=== PATIENT | female | born 1995 | race Caucasian/White ===

== ENCOUNTER 2017-03-02 21:01 | Emergency (ER) | payer OTHER ==
[~2017-03-02] VITALS: Ht 157.5 cm; Wt 92.7 kg
[2017-03-02 21:04] VITALS: TEMP 37; Ht 157.5 cm; Wt 92.7 kg
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
[2017-03-02 22:07] LABS: BASO % 0.4 %; BASO ABS # 0.04 K/uL (0-0.2); COMPLETE YES; EOS % 0.9 %; HEMATOCRIT 45.1 % (37-47); IG% 0.3 %; LYMPH % 25.5 %; LYMPH ABS # 2.69 K/uL (1.2-3.4); MEAN CORPUSCULAR HEMOGLOBIN 31.6 pg (25-34); MEAN CORPUSCULAR HGB CONC 34.4 g/dl (32-36); MEAN PLATELET VOLUME 10.4 fL (7.4-10.4); MONO % 5.4 %; NEUT % 67.5 %; PLATELET COUNT 296 K/uL (130-400); WHITE BLOOD COUNT 10.56 K/uL (4.8-10.8)
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
[2017-03-02 22:34] LABS: PREG INTERNAL NEGATIVE QC NEG CLEAR BACKGROUND; PREG INTERNAL POSITIVE QC POS CONTROL LINE
[2017-03-02] MEDS ORDERED: MISCCAP80 PO (22:39)
[2017-03-02] MEDS ORDERED: ASCO500T3 PO (22:39)
[2017-03-02] MEDS ORDERED: BCPILLS PO (22:39)
[2017-03-02] MEDS ORDERED: OMEG10007 PO (22:39)
[2017-03-02 22:42] LABS: ALT/SGPT 19 U/L (12-78); BLOOD UREA NITROGEN 17 mg/dl (7-18); BUN/CREATININE RATIO 22.4 (10-20); CALCIUM 9.3 mg/dl (8.5-10.1); CARBON DIOXIDE 26 mmol/L (21-32); CHLORIDE 105 mmol/L (98-107); CREATININE 0.74 mg/dl (0.60-1.20); GLUCOSE 102 mg/dl (70-99); POTASSIUM 3.7 mmol/L (3.5-5.1); SODIUM 140 mmol/L (136-145)
[2017-03-02 22:47] LABS: ALKALINE PHOSPHATASE 58 U/L (45-117); AST/SGOT 16 U/L (15-37)
[2017-03-02 23:11] LABS: URINE APPEARANCE CLEAR (CLEAR); URINE BILIRUBIN NEG (NEG); URINE COLOR YELLOW; URINE EPITHELIAL CELL AUTO >30 /lpf (0-5); URINE NITRITE POS (NEG); URINE PH 6.5 (4.5-7.5); URINE SPECIFIC GRAVITY 1.021 (1.000-1.030); UROBILINOGEN NEG (NEG); ZZUR CULT IF INDIC CLEAN CATCH YES
[2017-03-02 23:17] LABS: MANUAL MICROSCOPIC REQUIRED? NO; REVIEW REQ? NO
[2017-03-02] MEDS ORDERED: CEPHALEXIN MONOHYDRATE 250 MG CAP PO ONE (23:30)
[2017-03-02 23:38] LABS: BENZODIAZEPINE, URINE NEG (NEG); COCAINE,URINE NEG (NEG); PHENCYCLIDINE, URINE NEG (NEG)
[2017-03-03 00:54] VITALS: BP 137/83; PULSE 88; O2SAT 97
[2017-03-03] MEDS ORDERED: CEPH-571 PO (00:56)
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
== END 2017-03-03 01:20 | disposition home or self-care (01) ==
LOC: EDBD 21:01 → C.EDA 21:03
DX: M54.6 Pain in thoracic spine (principal); R56.9 Unspecified convulsions; F50.2 Bulimia nervosa; Z72.820 Sleep deprivation; N30.01 Acute cystitis with hematuria; V48.9XXA Unspecified car occupant injured in noncollision transport accident in traffic accident, initial encounter; Y93.89 Activity, other specified; Y99.8 Other external cause status; Y92.411 Interstate highway as the place of occurrence of the external cause

== ENCOUNTER 2017-07-27 09:51 | Emergency (ER) | payer OTHER ==
[~2017-07-27] VITALS: Ht 154.9 cm; Wt 100.6 kg
[~2017-07-27 09:51] MED LIST: ASCO500T3 PO; BCPILLS PO; MISCCAP80 PO; OMEG10007 PO
[2017-07-27 09:56] VITALS: TEMP 36.9; Ht 154.9 cm; Wt 100.6 kg
[2017-07-27] MEDS ORDERED: ONDANSETRON 4MG OD TAB PO ONE (10:30)
[2017-07-27 10:47] VITALS: O2SAT 94
--- NOTE | 2017-07-27 11:08 | DIAGNOSTIC IMAGING REPORT ---
CHEST ONE VIEW PORTABLE CLINICAL HISTORY: EVALUATE WEAKNESS COMPARISON STUDY: Chest radiograph March 02, 2017. FINDINGS: Lung volumes are at the lower limits of normal. There is no pneumothorax or pleural effusion. There is no consolidation or evidence for pulmonary edema. Cardiomediastinal silhouette is normal. IMPRESSION: No acute cardiopulmonary findings. Electronically signed by: Bharat Santizo M.D. 07/27/2017 11:06 AM Dictated Date/Time: 07/27/2017 11:06 AM
[2017-07-27] MEDS ORDERED: LORAZEPAM 0.5 MG TAB PO STA (12:03)
[2017-07-27 13:14] LABS: BASO % 0.2 %; BASO ABS # 0.02 K/uL (0-0.2); EOS % 0.8 %; EOS ABS # 0.09 K/uL (0-0.5); HEMATOCRIT 42.8 % (37-47); HEMOGLOBIN 14.5 g/dL (12.0-16.0); IG# 0.05 K/uL (0.00-0.02); LYMPH % 16.6 %; LYMPH ABS # 1.86 K/uL (1.2-3.4); MEAN CELL VOLUME 90.7 fL (80-100); MEAN CORPUSCULAR HEMOGLOBIN 30.7 pg (25-34); MEAN CORPUSCULAR HGB CONC 33.9 g/dl (32-36); MEAN PLATELET VOLUME 10.1 fL (7.4-10.4); MONO % 4.9 %; MONO ABS # 0.55 K/uL (0.11-0.59); NEUT % 77.1 %; NEUT ABS # 8.62 K/uL (1.4-6.5); PLATELET COUNT 286 K/uL (130-400); RED CELL DISTRIBUTION WIDTH CV 13.1 % (11.5-14.5); RED CELL DISTRIBUTION WIDTH SD 43.5 fL (36.4-46.3); WHITE BLOOD COUNT 11.19 K/uL (4.8-10.8)
[2017-07-27 13:36] LABS: CALCIUM 8.7 mg/dl (8.5-10.1); CREATININE 0.73 mg/dl (0.60-1.20); POTASSIUM 4.1 mmol/L (3.5-5.1)
[2017-07-27 13:47] LABS: PHOSPHORUS 2.2 mg/dl (2.5-4.9)
[2017-07-27] MEDS ORDERED: POT PHOSPHATE MONOBASIC W/ SOD TAB PO STA (13:54)
[2017-07-27 14:21] VITALS: BP 134/90; PULSE 90; O2SAT 97
--- NOTE | 2017-07-27 14:43 | EMERGENCY ROOM VISIT NOTE ---
History Report prepared by Eugene: Nito Hebert Under the Supervision of: Dr. Caleb Ramos M.D. First contact with patient: 10:10 Chief Complaint: DIZZY Stated Complaint: DIZZY, NAUSEA, CONSTIPATION,HEARTBURN AND HEADACHE History of Present Illness The patient is a 21 year old white female with a past medical history of seizures, s/p tonsillectomy who presents to the ED with a cc of constant lightheadedness beginning three days ago. Symptoms worsen with positional changes. Symptoms began suddenly. Positive nausea (x1.5 weeks) and heart palpitations. She recently took a test which was negative. Symptoms improved with sitting down. Her LNMP was about three weeks ago - she states it seemed abnormally light. Negative urinary symptoms, abdominal pain, or vomiting. No recent antibiotic use. Recent travel to [place]. No drug or alcohol use. Patient states that she has been stressed with school recently, but this is not abnormal for her. Source of History: patient Onset: Three days ago Quality: other (lightheadedness) Timing: constant Modifying Factors (Worsening): other (positional changes) Modifying Factors (Relieving): other (sitting down) Associated Symptoms: + nausea (x1.5 weeks), No vomiting, No abdominal pain, No urinary symptoms Note: Positive: heart palpitations. Review of Systems See HPI for pertinent positives and negatives. A total of ten systems were reviewed and were otherwise negative. Past Medical & Surgical Medical Problems: (1) Seizures Family History No pertinent family history stated. 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: [employer] student Current/Historical Medications Scheduled Ascorbic Acid (Vitamin C), 500 MG PO DAILY Fish Oil ([place]-3), 1 CAP PO DAILY Allergies Coded Allergies: Fluoxetine (Verified Allergy, Intermediate, Bad thoughts, 07/27/17) Physical Exam Vital Signs Date Time Temp Pulse Resp B/P (MAP) Pulse Ox O2 Delivery O2 Flow Rate FiO2 07/27/17 14:21 90 24 134/90 97 07/27/17 13:51 82 18 97 07/27/17 13:21 83 16 96 07/27/17 12:51 79 18 98 07/27/17 12:21 81 16 98 07/27/17 12:08 77 23 123/73 98 Room Air 07/27/17 12:08 123/73 07/27/17 11:51 72 16 99 07/27/17 11:21 74 20 98 07/27/17 10:50 74 07/27/17 10:47 94 Room Air 07/27/17 09:56 36.9 88 20 140/86 96 Room Air Physical Exam GENERAL: Awake, alert, well-appearing, NAD HENT: Normocephalic, atraumatic. Patient has braces. EYES: Normal conjunctiva. Sclera non-icteric. NECK: Supple. No nuchal rigidity. FROM. RESPIRATORY: CTAB, no rhonchi, wheezing, crackles CARDIAC: RRR, no MRG ABDOMEN: Soft, NTND, BS+ MSK: No chest wall TTP, no LE edema NEURO: GCS 15, CN 2-12 intact, moves all 4s on command SKIN: No rash or jaundice noted. Medical Decision & Procedures ER Provider Diagnostic Interpretation: Radiology results as stated below per my review and radiologist interpretation: CHEST ONE VIEW PORTABLE FINDINGS: Lung volumes are at the lower limits of normal. There is no pneumothorax or pleural effusion. There is no consolidation or evidence for pulmonary edema. Cardiomediastinal silhouette is normal. IMPRESSION: No acute cardiopulmonary findings. Electronically signed by: Bharat Santizo M.D. 07/27/2017 11:06 AM Laboratory Results 07/27/17 11:28 Red Blood Count 4.72, Mean Corpuscular Volume 90.7, Mean Corpuscular Hemoglobin 30.7, Mean Corpuscular Hemoglobin Concent 33.9, Mean Platelet Volume 10.1, Neutrophils (%) (Auto) 77.1, Lymphocytes (%) (Auto) 16.6, Monocytes (%) (Auto) 4.9, Eosinophils (%) (Auto) 0.8, Basophils (%) (Auto) 0.2, Neutrophils # (Auto) 8.62, Lymphocytes # (Auto) 1.86, Monocytes # (Auto) 0.55, Eosinophils # (Auto) 0.09, Basophils # (Auto) 0.02 07/27/17 11:28 Test 07/27/17 10:45 07/27/17 11:28 Urine Color DK YELLOW Urine Appearance CLOUDY (CLEAR) Urine pH 5.5 (4.5-7.5) Urine Specific [place] 1.027 (1.000-1.030) Urine Protein NEG (NEG) Urine Glucose (UA) NEG (NEG) Urine Ketones NEG (NEG) Urine Occult Blood NEG (NEG) Urine Nitrite NEG (NEG) Urine Bilirubin NEG (NEG) Urine Urobilinogen NEG (NEG) Urine Leukocyte Esterase NEG (NEG) Urine WBC (Auto) 1-5 /hpf (0-5) Urine RBC (Auto) 0-4 /hpf (0-4) Urine Hyaline Casts (Auto) 0 /lpf (0-5) Urine Epithelial Cells (Auto) >30 /lpf (0-5) Urine Bacteria (Auto) NEG (NEG) White Blood Count 11.19 K/uL (4.8-10.8) Red Blood Count 4.72 M/uL (4.2-5.4) Hemoglobin 14.5 g/dL (12.0-16.0) Hematocrit 42.8 % (37-47) Mean Corpuscular Volume 90.7 fL (80-100) Mean Corpuscular Hemoglobin 30.7 pg (25-34) Mean Corpuscular Hemoglobin Concent 33.9 g/dl (32-36) Platelet Count 286 K/uL (130-400) Mean Platelet Volume 10.1 fL (7.4-10.4) Neutrophils (%) (Auto) 77.1 % Lymphocytes (%) (Auto) 16.6 % Monocytes (%) (Auto) 4.9 % Eosinophils (%) (Auto) 0.8 % Basophils (%) (Auto) 0.2 % Neutrophils # (Auto) 8.62 K/uL (1.4-6.5) Lymphocytes # (Auto) 1.86 K/uL (1.2-3.4) Monocytes # (Auto) 0.55 K/uL (0.11-0.59) Eosinophils # (Auto) 0.09 K/uL (0-0.5) Basophils # (Auto) 0.02 K/uL (0-0.2) RDW Standard Deviation 43.5 fL (36.4-46.3) RDW Coefficient of Variation 13.1 % (11.5-14.5) Immature Granulocyte % (Auto) 0.4 % Immature Granulocyte # (Auto) 0.05 K/uL (0.00-0.02) Anion Gap 7.0 mmol/L (3-11) Est Creatinine Clear Calc Drug Dose 133.7 ml/min Estimated GFR () 137.4 Estimated GFR (Non- 118.6 BUN/Creatinine Ratio 18.3 (10-20) Calcium Level 8.7 mg/dl (8.5-10.1) Phosphorus Level 2.2 mg/dl (2.5-4.9) Magnesium Level 2.1 mg/dl (1.8-2.4) Thyroid Stimulating Hormone (TSH) 2.120 uIu/ml (0.300-4.500) Laboratory results reviewed by me Medications Administered Medications (Trade) Dose Ordered Sig/Soraya Route Start Time Stop Time Status Last Admin Dose Admin Ondansetron HCl (Zofran Odt) 4 mg ONE ONCE PO 07/27/17 10:30 07/27/17 10:31 DC 07/27/17 10:51 4 MG Lorazepam (Ativan Tab) 0.5 mg NOW STAT PO 07/27/17 12:03 07/27/17 12:04 DC 07/27/17 12:08 0.5 MG Potassium/ Phosphorus/Sodium (Phospha 250 Neutral 155-852-130 Mg) 2 tab ONE STAT PO 07/27/17 13:54 07/27/17 13:55 DC 07/27/17 14:22 2 TAB ECG Per My Interpretation Indication: other (lightheadedness) Rate (beats per minute): 79 Rhythm: normal sinus Findings: T-wave inversion (lead 3. ), other (Normal intervals. Normal axis. No other STS changes or TWI. ) ED Course 1022: The patient was evaluated in room B2. A complete history and physical exam was performed. 1102: Patient had an episode of vasovagal syncope while having her IV placed. 1142: Patient is asking to have her IV removed. 1405: I reevaluated the patient. Discussed results and discharge instructions: she verbalized understanding and agreement. The patient is ready for discharge. Medical Decision The patient is a 21 year old white female with a past medical history of seizures, s/p tonsillectomy who presents to the ED with a cc of constant lightheadedness beginning three days ago. Differential diagnosis: Etiologies such as benign positional vertigo, dehydration, hypovolemia, anemia, tumor, infection, hypoglycemia, electrolyte abnormalities, cardiac sources, intracerebral event, toxicologic, neurologic, as well as others were entertained. Nursing notes reviewed. Ancillary studies and prior records reviewed. Patient was seen and evaluated the bedside. Patient has complained of some lightheadedness primarily with positional changes. There is a constant nature but the patient denies any vertiginous symptoms. Patient denies any recent trauma the patient has a nonfocal neurologic exam. Patient did have blood work, EKG, urinalysis, chest x-ray. Patient's chest x- ray is clear. EKG does not show overt arrhythmia or ischemic changes. Patient' s blood work is fairly unremarkable. Patient white blood cell count of 11,000. H&H within normal limits. Kidney function within normal limits. Urinalysis does not show infection or blood. Patient was informed of these findings and was told that make sure that she liberally hydrates. Patient was told that this may have been some decrease vagal tone or at the time of her worsening dizziness may be related to some elevated heart rate which may be better seen with something like a Holter monitor. Patient was told that she does have persistent symptoms she should follow-up with her PCP in order to obtain an outpatient specialist referral. I do not believe that she requires further treatment in the hospital. I believe she is safe for discharge. Patient was given strict follow-up, discharge, and return precautions. All questions were answered. Patient was deemed suitable for outpatient follow-up at this time. Patient agreed with the plan of care and was safely discharged home. Medication Reconcilliation Current Medication List: was personally reviewed by me Blood Pressure Screening Patient's blood pressure: Normal blood pressure Blood pressure disposition: Did not require urgent referral Impression Primary Impression: Dizziness Scribe Attestation The scribe's documentation has been prepared under my direction and personally reviewed by me in its entirety. I confirm that the note above accurately reflects all work, treatment, procedures, and medical decision making performed by me. Departure Information Dispostion Home / Self-Care Referrals No Doctor, Assigned (PCP) Patient Instructions Dizziness Fainting Poss Causes, My [facility] Additional Instructions Please return to the emergency department if you have worsening or recurrent symptoms not amenable to at-home treatment. Please call for a follow-up appointment with her primary care physician. Please take your medications as prescribed. If you have other concerns and/or complaints please feel free to also call your primary care physician's office or return the ED for further evaluation, management, and treatment. You were found to have an elevated blood pressure today (>120 sytolic or >90 diastolic). Per medicare guidelines, you need to follow up with this blood pressure screening with your Primary Care Physician (PCP). For a new PCP call [phone]. You received narcotic or benzodiazepene medication while in the emergency room today. This is an addictive medication that may cause drowziness as well as constipation. Do not drive, operate heavy machinery, or drink alcohol under the influence of this medication. You may take 600 mg Ibuprofen every 6 hours as needed for pain with food for no more than 2 consecutive days. You may take tylenol 1000 mg every 6 hours as needed for pain. You may take motrin and tylenol separately or at the same time. Take your medications as prescribed. Continue to hydrate liberally. Please be careful as he change positions. Consider avoiding alcohol and caffeine. Consider follow-up with your PCP for further testing, evaluation, and possible specialist referral if you have persistent symptoms. You have been examined and treated today on an emergency basis only. This is not a substitute for, or an effort to provide, complete comprehensive medical care. It is impossible to recognize and treat all injuries or illnesses in a single emergency department visit. It is therefore important that you follow up closely with [facility], your PCP, and/or your specialist(s). Call as soon as possible for an appointment. Thank you for your time and consideration. I look forward to speaking with you again soon. Please don't hesitate to call us if you have any questions.
== END 2017-07-27 14:45 | disposition home or self-care (01) ==
LOC: C.EDB 09:54
DX: R42 Dizziness and giddiness (principal); R56.9 Unspecified convulsions; Z88.8 Allergy status to other drugs, medicaments and biological substances

== ENCOUNTER 2018-08-29 07:38 | Inpatient (IN) ==
[2018-08-29] MEDS ORDERED: OXYTOCIN 30 UNITS/500 ML BAG IV PRN ×3 (08:40→18:30)
[2018-08-29 09:07] LABS: Hematocrit (blood only) 35.6 % (37-47); Hemoglobin 12.7 g/dL (12.0-16.0); Mean Corpuscular Volume 86.6 fL (80-100); Mean Platelet Volume 10.5 fL (7.4-10.4); Platelet Count 187 K/uL (130-400); RDW Coefficient of Variation 14.1 % (11.5-14.5); RDW Standard Deviation 44.3 fL (36.4-46.3); Red Blood Count 4.11 M/uL (4.2-5.4); White Blood Count 6.44 K/uL (4.8-10.8)
[2018-08-29 09:18] LABS: Mean Corpuscular Hgb Conc 35.7 g/dL (32-36)
[2018-08-29 09:34] LABS: Albumin Level 2.3 gm/dl (3.4-5.0); BUN Creatinine Ratio 12.9 (10-20); Calcium 8.8 mg/dl (8.5-10.1); Creatinine Clr Calc Pharmacy 165.5 ml/min; Est GFR (African American) 146.1
[2018-08-29 09:37] LABS: Albumin Globulin Ratio 0.6 (0.9-2); Bilirubin,Total 0.7 mg/dl (0.2-1); Total Protein 6.3 gm/dl (6.4-8.2)
[2018-08-29] MEDS: LACTATED RINGER'S 1,000 ML IV PRN ×2 (09:38→12:19)
--- NOTE | 2018-08-29 09:47 | Anesthesiology Consultation ---
Date of Service August 29, 2018 Assessment & Plan (1) Encounter for pre-operative examination: Chart Review Chart Review: Patient NOT seen in Pre Admission Testing and Acceptable Risk for Labor Epidural Consults Requested none ASA ASA3 Proposed Anesthesia Anesthesia Type: Labor Epidural Risk / Benefits Reviewed With: PT / POA / Parent / Guardian, Accepts Plan and Informed Consent Obtained History Height/Weight Height: 5 ft 2 in Weight: 117.934 kg Allergies Allergy/AdvReac Type Severity Reaction Status Date / Time fluoxetine Allergy Intermediate Bad Verified 08/29/18 08:18 thoughts diphenhydramine Allergy Mild jittery Verified 08/29/18 08:18 [From Unisom (diphenhydramine)] Medications Home Medications Medication Instructions Recorded Confirmed Last Taken PNV cmb#95-ferrous fumarate-FA 1 tab PO DAILY 04/22/18 08/29/18 08/28/18 08:00 [] famotidine [Pepcid AC] 10 mg PO DAILY PRN 08/16/18 08/29/18 08/22/18 08:00 Active Medications Generic Name Dose Route Start Last Admin Trade Name Freq PRN Reason Stop Dose Admin Lactated Ringer's 1,000 mls @ 125 mls/hr 08/29/18 08:40 08/29/18 10:10 Lr IV 08/31/18 08:39 125 mls/hr .Q8H PRN Infusion L&D Protocol Protocol Oxytocin 30 units in 500 mls @ 5 mls/hr 08/29/18 08:40 08/29/18 10:50 Pitocin IV 08/31/18 08:39 0.3 units/hr .Q24H PRN 5 mls/hr Labor Induction/Augmentation Titration Protocol 0.3 UNITS/HR NPO Date Last Intake of Fluids: 08/29/18 Time Last Intake of Fluids: 11:12 Date Last Intake of Solids: 08/28/18 Time Last Intake of Solids: 23:00 Past Medical History Medical History Seizures (Resolved) Only with syncope Gastroesophageal reflux disease Gestational [-induced] hypertension without significant proteinuria, third trimester Gestational diabetes Obesity Pre-eclampsia Exercise / Class Metabolic Activity II 4-5 Yardwork/Stairs/Walk up hill (Postive for sob, denies cp) Past Surgical History Surgical History History of tonsillectomy [place] teeth extracted Past Anesthesia History No Hx of Anesthesia Complications and No Family Hx of Anesthesia Complications History of PONV No Hx of PONV and Hx of Motion Sickness (With ) Social History Smoking Status: Never smoker Do You Dip or Chew Tobacco: No Hx Alcohol Use: No Hx Substance Use: No Review of Systems Patient denies history of abnormal bleeding or bleeding disorder. Patient denies active use of anticoagulants other than low dose aspirin. Patient denies numbness, tingling or weakness in lower extremities. Patient denies active symptoms of GERD. Physical Exam Vital Signs Last Vital Signs Temp 37.5 C 08/29/18 07:59 Pulse 120 H 08/29/18 10:47 Resp 20 08/29/18 07:59 BP 124/79 08/29/18 10:47 Constitutional + obese ENMT Mouth: no TMJ abnormality and oral opening not small Thyromental Distance: > or= 3.5 Finger Breadths Mallampati Class: I Mouth / Teeth: 1. Upper and lower braces Neck normal visual inspection, + short neck and + thick neck; neck extension not limited Respiratory normal respiratory effort Auscultation: lungs clear to auscultation bilaterally Cardiovascular Rate/Rhythm: regular rate and regular rhythm Heart Sounds: no murmur Neurologic moves all extremities Motor/Sensory: no sensory deficit Psychiatric Orientation: alert and oriented x 3 Testing Electrocardiogram Date: 08/16/18 Findings: + ST @ (103) Laboratory Results 08/29/18 08:57 08/29/18 08:57
[2018-08-29 10:03] LABS: Potassium 3.6 mmol/L (3.5-5.1)
--- NOTE | 2018-08-29 10:22 | History & Physical Report ---
Date of Service August 29, 2018 Assessment & Plan (1) Elective induction of labor planned: Pt is a 30 year old at 37+3 for induction of labor 2/2 preclampsia without severe features. - FHT reassuring Cat 1 tracing - 3.5/100/0 - LR @ 125 - F/U CMP and U/A - Pitocin 30 units in 500 mls @ 1 mls/hr -> up by 2 - Monitor FHT/toco - Monitor BP given dx of preeclampsia without severe features -labetalol for severe HTN - Routine labor care - Anticipate Vaginal , Expectant management History of Present Illness Primary Care Provider: Светлана Page MD Pt is a 23 year old with lmp of 12/06/2017 and EDC of 09/16/2018 confirmed by 1st trimester ultrasound on 01/31/2018 at 7+3 who presents at 37+3 for induction of labor 2/2 to preeclampsia without severe features. course was significant for GDM in the third trimester, preeclampsia, hx anxiety and depression, UTI. Currently pt reports malaise for the past few days, however has been afebrile. Last cervical exam on 08/26/18 was 3/90/-2, cervical exam today on admission 3.5/100/0 with bulging membranes. Currently does not report feeling contractions, just some occasional abdominal tightening toco shows > 7 minutes apart and not very forceful. She currently denies nausea, vomiting, RUQ pain, swelling, headache, blurred vision, vaginal bleeding, or decreased movement. Over the weekend she reports having flu like syx, malaise, muscle aches, pains, headache, and slight fever. Denied congestion, sob, v/d/c. Recently completed a course of abx for a uti. Pt resting comfortably in bed no acute complaints, answered all questions, no acute concerns. labs First Visit 7+3 Weight Gain: 18.6 lbs A+ antibody neg Last HGB: 12.4 08/23/2018 DM screen: 05/27/18->GDM Rubella Immune HIV neg Pap neg 01/31/18 EGA:37+3 BP Range 106/60-130/88 U/A: Lactobacillus GBS negative RPR Negative HBsAG Negative GC/ Chlamydia negative Allergies Allergy/AdvReac Type Severity Reaction Status Date / Time fluoxetine Allergy Intermediate Bad Verified 08/29/18 08:18 thoughts diphenhydramine Allergy Mild jittery Verified 08/29/18 08:18 [From Unisom (diphenhydramine)] Home Medications Home Medications Medication Instructions Recorded Confirmed Type PNV cmb#95-ferrous fumarate-FA 1 tab PO DAILY 04/22/18 08/29/18 History [] famotidine [Pepcid AC] 10 mg PO DAILY PRN 08/16/18 08/29/18 History Patient History Medical History Seizures (Resolved) Social History Preferred Language: Amharic Communication Ability: Effective Clin Tech Required: No Beliefs That Will Affect Care: None marital status: Single Current Living Situation: Alone current occupational status: student Feels Safe at Home: Yes Safety Concerns: Feels Safe At This Time Smoking Status: Never smoker Hx Alcohol Use: No Hx Substance Use: No OB History OBHX: hCG+ on 01/12/2018, stopped taking anti-depressant when she found out she was , PNV and iron throughout , elevated BP -> preeclampsia w/o severe features [employer]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: menearche @ 13, hx long cycles 35 days, normal amount and duration, neg pap, no hx PID or STDS, hx ovarian cysts and endometriosis PMHX: HTN, Anxiety/depression, Lives with 3 roomates, one has a cat FHX:GDM, F-HTN, M- Kidney stones, MGM DM, HLD, depression, anxiety, PGF-Liver ca, Allergies: NKDA Physical Exam Constitutional: WD/WN, vitals as above Eyes: normal visual becker by confrontation Neck: normal visual inspection and trachea midline Respiratory: normal respiratory effort, lungs clear to auscultation Cardiovascular: RRR, no murmur, no edema Heart Sounds: normal S1 and normal S2 Extremities: normal capillary refill; no calf tenderness Gastrointestinal (Abdomen): Gravid belly Skin: no rashes, warm and dry Psychiatric: A+Ox3, euthymic affect Results & Data Vital Signs (Past 12 Hours) Vital Signs Temp Pulse Resp BP 08/29/18 09:18 122 H 133/94 08/29/18 07:59 37.5 C 20 08/29/18 07:52 125 H 131/91 Laboratory Results 08/29/18 08/29/18 Range/Units 08:57 08:57 WBC 6.44 (4.8-10.8) K/uL RBC 4.11 L (4.2-5.4) M/uL Hgb 12.7 (12.0-16.0) g/dL Hct 35.6 L (37-47) % MCV 86.6 (80-100) fL MCH 30.9 (25-34) pg MCHC 35.7 (32-36) g/dL RDW Std Deviation 44.3 (36.4-46.3) fL RDW Coeff of Rishi 14.1 (11.5-14.5) % Plt Count 187 (130-400) K/uL MPV 10.5 H (7.4-10.4) fL Sodium 136 (136-145) mmol/L Potassium 3.6 (3.5-5.1) mmol/L Chloride 104 (98-107) mmol/L Carbon Dioxide 22 (21-32) mmol/L Anion Gap 10.0 (3-11) BUN 8 (7-18) mg/dl Creatinine 0.65 (0.6-1.2) mg/dl Est Cr Clr Drug Dosing 165.5 ml/min Est GFR ( Amer) 146.1 Est GFR (Non-Af Amer) 126.0 BUN/Creatinine Ratio 12.9 (10-20) Glucose 95 (70-99) mg/dl Calcium 8.8 (8.5-10.1) mg/dl Total Bilirubin 0.7 (0.2-1) mg/dl AST 59 H (15-37) U/L ALT 99 H (12-78) U/L Alkaline Phosphatase 179 H (45-117) U/L Total Protein 6.3 L (6.4-8.2) gm/dl Albumin 2.3 L (3.4-5.0) gm/dl Globulin 4.0 (2.5-4.0) gm/dl Albumin/Globulin Ratio 0.6 L (0.9-2) Medications Administered Current Inpatient Medications Lactated Ringer's (Lr) 1,000 mls @ 125 mls/hr IV .Q8H PRN; Protocol PRN Reason: L&D Protocol Stop: 08/31/18 08:39 Last Infusion: 08/29/18 10:10 Dose: 125 mls/hr Documented by: Oxytocin (Pitocin) 30 units in 500 mls @ 1 mls/hr IV .Q24H PRN; Protocol PRN Reason: Labor Induction/Augmentation Stop: 08/31/18 08:39 Last Titration: 08/29/18 10:10 Dose: 0.18 units/hr, 3 mls/hr Documented by: Oxytocin (Pitocin) 30 units in 500 mls @ 333.333 mls/hr IV .Q1H30M PRN; Protocol PRN Reason: Bleeding Control Stop: 09/28/18 08:39 Code Status & VTE Plan Code Status Full VTE Prophylaxis Plan VTE Prophylaxis will be ordered: Yes Monitoring External Monitor FHR 155 Variability Moderate Accel present No decels CTX every 7 min or so Cat 1 Resident Activity Tracking Resident Involvement: Resident Care Provided Care Provided: Adult Hospital Medicine
--- NOTE | 2018-08-29 11:55 | Obstetrical Progress Note ---
Date of Service August 29, 2018 Subjective Comfortable, does not desire epidural at this time. FHT Cat 1, [place] Q 2 min AROM performed, clear fluid. SVE 4/100/0. Results & Data Vital Signs (Past 12 Hours) Vital Signs Temp Pulse Resp BP 08/29/18 11:37 116 H 133/79 08/29/18 11:15 98.6 F 08/29/18 10:47 120 H 124/79 08/29/18 09:38 122 H 128/79 08/29/18 09:18 122 H 133/94 08/29/18 07:59 99.5 F 08/29/18 07:52 125 H 131/91
[2018-08-29 11:58] LABS: Appearance Urine Cloudy (Clear); Bacteria Urine Automated 1+ (Negative); Bilirubin Urine Negative (Negative); Blood Urine 1+ (Negative); Color Urine Dark Yellow; Epithelial Cell Urine Auto >30 /lpf (0-5); Glucose Urine UA Negative (Negative); Ketones Urine Negative (Negative); Leukocyte Esterase Urine 1+ (Negative); Nitrite Urine Negative (Negative); Protein Urine Negative (Negative); RBC Urine Automated 0-4 /hpf (0-4); Specific Gravity Urine 1.013 (1.000-1.030); Urobilinogen Urine Negative (Negative)
[2018-08-29] MEDS ORDERED: BUPIVACAINE 0.25% 30 ML VIAL ONE (11:58)
[2018-08-29] MEDS ORDERED: ePHEDrine sulfate 50 MG/ML AMP ONE (11:58)
[2018-08-29] MEDS ORDERED: fentaNYL citrate 100 MCG/2 ML VIAL ONE (11:59)
[2018-08-29] MEDS ORDERED: fentaNYL 2MCG/ML ROPIV 1.25MG/ML 100 ML BAG EPI ONE (12:00)
[2018-08-29] MEDS ORDERED: ONDANSETRON INJ 2 MG/ML 2 ML VIAL IV PRN (12:59)
[2018-08-29] MEDS ORDERED: NALOXONE HCL 1 MG in SODIUM CHLORIDE 0.9% 1000ML 1,000 ML IV PRN (12:59)
[2018-08-29] MEDS ORDERED: NALBUPHINE HCL INJ 10 MG/ML AMP IV PRN (12:59)
[2018-08-29] MEDS ORDERED: ePHEDrine sulfate 50 MG/ML AMP IV PRN (12:59)
[2018-08-29] MEDS ORDERED: LACTATED RINGER'S 1,000 ML IV PRN (12:59)
[2018-08-29] MEDS ORDERED: fentaNYL 2MCG/ML ROPIV 1.25MG/ML 100 ML BAG EPI PRN (12:59)
[2018-08-29] MEDS ORDERED: NALOXONE HCL 0.4 MG/1 ML VIAL/CARP IV PRN (12:59)
--- NOTE | 2018-08-29 13:51 | Labor Progress Brief Note ---
Date of Service August 29, 2018 Subjective Comfortable with epidural. Assessment & Plan (1) Mild preeclampsia: Patient being induced for preeclampsia without severe features at 37+ weeks. Patient's labs reviewed from this morning. LFT elevated a bit more than on previous Wednesday, however still do not reach to double normal values. Platelets and Cr normal. Patient continues to be without headache, vision changes, RUQ pain or other severe features. BP normal at this time. Moving towards delivery. Trimester: third trimester Qualified Code(s): O14.03 - Mild to moderate pre-eclampsia, third trimester Present on Admission?: Yes Physical Exam Physical Exam: FHT 130 mod mary ann +acc -dec [place] Q1-4 irregular, pit @ 9 Cvx 5/100/0 Molding noted. Fluid clear. Results & Data Vital Signs (Past 12 Hours) Vital Signs Temp Pulse Resp BP Pulse Ox 08/29/18 13:45 105 H 94 08/29/18 13:40 98 H 96 08/29/18 13:35 101 H 117/75 94 08/29/18 13:30 97 H 18 95 08/29/18 13:27 105 H 92 08/29/18 13:25 103 H 95 08/29/18 13:20 97 H 18 96 08/29/18 13:18 100 H 110/66 08/29/18 13:15 96 H 99/58 L 97 08/29/18 13:12 96 H 18 103/65 08/29/18 13:10 99 H 96 08/29/18 13:07 99 H 106/66 08/29/18 13:05 100 H 96 08/29/18 13:02 103 H 18 99/59 L 08/29/18 13:00 96 H 96 08/29/18 12:57 18 08/29/18 12:56 96 H 111/63 08/29/18 12:55 98 H 96 08/29/18 12:54 99 H 108/58 L 08/29/18 12:52 98 H 18 112/60 08/29/18 12:50 100 H 110/60 96 08/29/18 12:48 107 H 106/63 08/29/18 12:46 100 H 106/64 08/29/18 12:45 104 H 96 08/29/18 12:44 98 H 104/63 08/29/18 12:40 98 H 97 08/29/18 12:35 113 H 96 08/29/18 12:30 112 H 96 08/29/18 12:25 117 H 95 08/29/18 12:24 116 H 134/94 08/29/18 11:53 37.2 C 08/29/18 11:37 116 H 133/79 08/29/18 11:15 37.0 C 08/29/18 10:47 120 H 124/79 08/29/18 09:38 122 H 128/79 08/29/18 09:18 122 H 133/94 08/29/18 07:59 37.5 C 08/29/18 07:52 125 H 131/91
--- NOTE | 2018-08-29 15:14 | Labor Progress Brief Note ---
Date of Service August 29, 2018 Subjective Comfortable with epidural. Assessment & Plan (1) Mild preeclampsia: Continue induction of labor. Trimester: third trimester Qualified Code(s): O14.03 - Mild to moderate pre-eclampsia, third trimester Present on Admission?: Yes Physical Exam Physical Exam: 7/100/0 IUPC and FSE placed at RN request due to difficulty tracing pattern. Pit @ 11. FHT Cat 1 and MVU do not appear adequate at first, with ctx Q4min upon IUPC placement. Results & Data Vital Signs (Past 12 Hours) Vital Signs Temp Pulse Resp BP Pulse Ox 08/29/18 15:10 105 H 94 08/29/18 15:05 111 H 129/75 93 08/29/18 15:00 113 H 92 08/29/18 14:59 20 08/29/18 14:55 108 H 93 08/29/18 14:50 108 H 94 08/29/18 14:49 109 H 111/75 08/29/18 14:45 108 H 93 08/29/18 14:40 106 H 94 08/29/18 14:35 112 H 93 08/29/18 14:34 107 H 107/82 08/29/18 14:30 109 H 94 08/29/18 14:25 111 H 94 08/29/18 14:21 37.2 C 20 08/29/18 14:20 112 H 125/76 93 08/29/18 14:18 124 H 88 L 08/29/18 14:15 103 H 94 08/29/18 14:10 97 H 93 08/29/18 14:06 113 H 89 L 08/29/18 14:05 108 H 90 08/29/18 14:03 96 H 124/77 08/29/18 14:00 100 H 20 92 08/29/18 13:55 98 H 91 08/29/18 13:50 100 H 124/77 94 08/29/18 13:45 105 H 94 08/29/18 13:40 98 H 96 08/29/18 13:35 101 H 117/75 94 08/29/18 13:30 97 H 18 95 08/29/18 13:27 105 H 92 08/29/18 13:25 103 H 95 05 13:20 97 H 18 96 08/29/18 13:18 100 H 110/66 08/29/18 13:15 96 H 99/58 L 97 08/29/18 13:12 96 H 18 103/65 08/29/18 13:10 99 H 96 08/29/18 13:07 99 H 106/66 08/29/18 13:05 100 H 96 08/29/18 13:02 103 H 18 99/59 L 08/29/18 13:00 96 H 96 08/29/18 12:57 18 08/29/18 12:56 96 H 111/63 08/29/18 12:55 98 H 96 08/29/18 12:54 99 H 108/58 L 08/29/18 12:52 98 H 18 112/60 08/29/18 12:50 100 H 110/60 96 08/29/18 12:48 107 H 106/63 08/29/18 12:46 100 H 106/64 08/29/18 12:45 104 H 96 08/29/18 12:44 98 H 104/63 08/29/18 12:40 98 H 97 08/29/18 12:35 113 H 96 08/29/18 12:30 112 H 96 08/29/18 12:25 117 H 95 08/29/18 12:24 116 H 134/94 08/29/18 11:53 37.2 C 08/29/18 11:37 116 H 133/79 08/29/18 11:15 37.0 C 08/29/18 10:47 120 H 124/79 08/29/18 09:38 122 H 128/79 08/29/18 09:18 122 H 133/94 08/29/18 07:59 37.5 C 08/29/18 07:52 125 H 131/91
--- NOTE | 2018-08-29 17:56 | Labor Progress Brief Note ---
Date of Service August 29, 2018 Subjective Lots of pressure with urge to push. Assessment & Plan (1) Mild preeclampsia: Ready to begin second stage of labor. Trimester: third trimester Qualified Code(s): O14.03 - Mild to moderate pre-eclampsia, third trimester Present on Admission?: Yes Physical Exam Physical Exam: 10/100/caput at +2, molding, skull more like +1. Test push effective. FHT Cat 1 [place] Q2m Results & Data Vital Signs (Past 12 Hours) Vital Signs Temp Pulse Resp BP Pulse Ox 08/29/18 17:50 121 H 97 08/29/18 17:49 112 H 128/85 08/29/18 17:45 118 H 95 08/29/18 17:40 115 H 93 08/29/18 17:35 111 H 125/83 95 08/29/18 17:30 110 H 95 08/29/18 17:25 111 H 96 08/29/18 17:20 107 H 95 08/29/18 17:19 112 H 131/70 08/29/18 17:15 108 H 95 08/29/18 17:10 117 H 94 08/29/18 17:05 108 H 93 08/29/18 17:04 106 H 130/89 08/29/18 17:00 106 H 93 08/29/18 16:55 106 H 131/77 93 08/29/18 16:50 104 H 137/85 94 08/29/18 16:45 101 H 93 08/29/18 16:40 105 H 93 08/29/18 16:35 102 H 94 08/29/18 16:34 103 H 125/78 08/29/18 16:30 106 H 93 08/29/18 16:29 37.0 C 20 08/29/18 16:25 105 H 93 08/29/18 16:20 103 H 95 08/29/18 16:18 104 H 122/77 08/29/18 16:15 108 H 96 08/29/18 16:10 105 H 95 08/29/18 16:05 103 H 125/77 93 08/29/18 16:01 18 08/29/18 16:00 104 H 93 08/29/18 15:55 103 H 92 08/29/18 15:50 101 H 92 08/29/18 15:49 104 H 130/72 05//19 15:45 101 H 90 08/29/18 15:40 109 H 90 08/29/18 15:35 108 H 146/70 H 92 08/29/18 15:31 37.2 C 18 08/29/18 15:30 104 H 93 08/29/18 15:25 104 H 93 08/29/18 15:20 102 H 117/58 L 92 08/29/18 15:15 102 H 94 08/29/18 15:10 105 H 94 08/29/18 15:05 111 H 129/75 93 08/29/18 15:01 18 08/29/18 15:00 113 H 92 08/29/18 14:59 20 08/29/18 14:55 108 H 93 08/29/18 14:50 108 H 94 08/29/18 14:49 109 H 111/75 08/29/18 14:45 108 H 93 08/29/18 14:40 106 H 94 08/29/18 14:35 112 H 93 08/29/18 14:34 107 H 107/82 08/29/18 14:30 109 H 94 08/29/18 14:25 111 H 94 08/29/18 14:21 37.2 C 20 08/29/18 14:20 112 H 125/76 93 08/29/18 14:18 124 H 88 L 08/29/18 14:15 103 H 94 08/29/18 14:10 97 H 93 08/29/18 14:06 113 H 89 L 08/29/18 14:05 108 H 90 08/29/18 14:03 96 H 124/77 08/29/18 14:00 100 H 20 92 08/29/18 13:55 98 H 91 08/29/18 13:50 100 H 124/77 94 08/29/18 13:45 105 H 94 08/29/18 13:40 98 H 96 05 13:35 101 H 117/75 94 08/29/18 13:30 97 H 18 95 08/29/18 13:27 105 H 92 08/29/18 13:25 103 H 95 08/29/18 13:20 97 H 18 96 08/29/18 13:18 100 H 110/66 08/29/18 13:15 96 H 99/58 L 97 08/29/18 13:12 96 H 18 103/65 08/29/18 13:10 99 H 96 08/29/18 13:07 99 H 106/66 08/29/18 13:05 100 H 96 08/29/18 13:02 103 H 18 99/59 L 08/29/18 13:00 96 H 96 08/29/18 12:57 18 08/29/18 12:56 96 H 111/63 08/29/18 12:55 98 H 96 08/29/18 12:54 99 H 108/58 L 08/29/18 12:52 98 H 18 112/60 08/29/18 12:50 100 H 110/60 96 08/29/18 12:48 107 H 106/63 08/29/18 12:46 100 H 106/64 08/29/18 12:45 104 H 96 08/29/18 12:44 98 H 104/63 08/29/18 12:40 98 H 97 08/29/18 12:35 113 H 96 08/29/18 12:30 112 H 96 08/29/18 12:25 117 H 95 08/29/18 12:24 116 H 134/94 08/29/18 11:53 37.2 C 08/29/18 11:37 116 H 133/79 08/29/18 11:15 37.0 C 08/29/18 10:47 120 H 124/79 08/29/18 09:38 122 H 128/79 08/29/18 09:18 122 H 133/94 08/29/18 07:59 37.5 C 08/29/18 07:52 125 H 131/91
[2018-08-29] MEDS ORDERED: HYDROCORTISONE ACETATE 25 MG SUPP PR PRN (18:30)
[2018-08-29] MEDS ORDERED: SUPERCREAM 0.870% 15 GM JAR EXT PRN (18:30)
[2018-08-29] MEDS ORDERED: DIPHTHERIA/TETANUS/PERTUSSIS 0.5 ML SYR/VIAL IM ONE (18:30)
[2018-08-29] MEDS ORDERED: OXYCODONE/ACETAMINOPHEN 5mg/325mg TAB PO PRN (18:30)
[2018-08-29] MEDS ORDERED: BENZOCAINE 20% AER SPR 82.5 GM CAN EXT PRN (18:30)
--- NOTE | 2018-08-29 18:35 | Procedure Note ---
Vaginal Delivery Summary Date of Service August 29, 2018 Supervising Physician Co-Signing Physician Notes Patient pushed to deliver head of in OA position. Restituted with left shoulder anterior, and noted to have flexed R arm at the elbow, with right fist alongside R cheek. Nuchal cord reduced on perineum and loop hanging outside canal noted to have excessive allie jelly. Shoulder dystocia recognized and managed with Adarsh position, Suprapubic pressure from posterior aspect of L shoulder, and maternal pushing efforts, which successfully resulted in delivery of anterior shoulder, followed by posterior fist/shoulder together, and the remainder of the infant then followed. Total dystocia time over 60 seconds. Infant placed on abdomen and cord clamped and quickly cut by MD, moved to warmer for resuscitation efforts. No lacerations of vagina, perineum or cervix required repair. Placenta delivered S/I/3VC, circumvallate insertion of membranes and excessive allie jelly, and will be sent for exam. Fundus firm and lochia minimal, EBL 350cc for this delivery.
[2018-08-29] MEDS: ACETAMINOPHEN 325 MG TAB PO PRN (20:25)
--- NOTE | 2018-08-29 20:37 | Anesthesia Procedure Note ---
Date of Service August 29, 2018 Anesthesia Post Epidural Note Vital Signs Vital Signs: Temp Pulse Resp BP Pulse Ox 37.1 C 118 H 18 147/92 H 100 08/29/18 19:10 08/29/18 20:34 08/29/18 19:25 08/29/18 20:34 08/29/18 18:15 Pain Intensity Abdomen: Pain Intensity: 6 Notes Mental Status: alert / awake / arousable and participated in evaluation Nausea / Vomiting: adequately controlled Pain: adequately controlled Airway Patency, RR, SpO2: stable & adequate BP & HR: stable & adequate Hydration State: stable & adequate Neuraxial Anesthesia: was administered and sensory block resolved Anesthetic Complications: no major complications apparent and Pt Satisfied with anesthetic care Epidural: Removed without complications and With tip intact Notes: Epidural site clean, dry and intact without signs of bruising, edema or erythema.
[2018-08-30] MEDS: IBUPROFEN 600 MG TAB PO PRN ×3 (02:29→18:00)
[2018-08-30] MEDS: ACETAMINOPHEN 325 MG TAB PO PRN (04:29)
[2018-08-30 07:12] LABS: Hematocrit (blood only) 31.3 % (37-47); Hemoglobin 11.1 g/dL (12.0-16.0); Mean Corpuscular Hgb Conc 35.5 g/dL (32-36); Mean Corpuscular Volume 86.9 fL (80-100); Mean Platelet Volume 10.1 fL (7.4-10.4); Platelet Count 161 K/uL (130-400); RDW Coefficient of Variation 14.1 % (11.5-14.5); RDW Standard Deviation 44.4 fL (36.4-46.3); White Blood Count 6.46 K/uL (4.8-10.8)
--- NOTE | 2018-08-30 07:20 | Obstetrical Progress Note ---
Date of Service August 30, 2018 Assessment & Plan (1) Status post vaginal delivery: Patient is a 23 year old PPD 1 s/p complicated by mild preclampsia -Vital signs WNL bp 103/68 T37.1, -Hemoglobin is 11.1 down from 12.7 on admission. no si/sx of anemia. -Pt is doing clinically well -Continue to encourage ambulation as tolerated, Monitor and control pain with motrin prn, Continue diet as tolerated. -Plan to bottle feed -Routine care Supervising Physician Co-Signing Physician Notes I have reviewed the resident's note and examined the patient myself, and agree with the note above. Subjective Patient laying in bed this morning s/p lab draws with dad sleeping on bed across the room. Pt reports doing well overnight, she endorse some left sided intermitt ent cramping. Patient is tolerating her diet, ambulating, passing gas and voiding, had a small bm. Reports moderate lochia. Denies H/A, chest pain, palpitations and uti syx. Answered all questions, no concerns at present, pain is well controlled Physical Exam Physical Exam: Constitutional: WD/WN, vitals as above no acute distress Eyes: normal visual becker by confrontation Neck: normal visual inspection Respiratory: normal respiratory effort, lungs clear to auscultation Cardiovascular: RRR, no murmur, no edema Heart Sounds: normal S1 and normal S2 Extremities: no calf tenderness Gastrointestinal (Abdomen): Uterus firm and below the umbilicus Results & Data Vital Signs (Past 12 Hours) Vital Signs Temp Pulse Pulse Resp BP BP 08/30/18 03:45 37.1 C 76 18 103/68 08/29/18 22:32 37.7 C H 18 08/29/18 20:34 118 H 147/92 H 08/29/18 20:19 110 H 144/98 H 08/29/18 20:09 112 H 139/90 08/29/18 19:49 109 H 141/70 H 08/29/18 19:34 109 H 135/78 08/29/18 19:25 18 08/29/18 19:19 101 H 140/65 Resident Activity Tracking Resident Involvement: Resident Care Provided Care Provided: [facility]
[2018-08-30 07:44] LABS: Albumin Globulin Ratio 0.5 (0.9-2); Albumin Level 1.9 gm/dl (3.4-5.0); BUN Creatinine Ratio 13.1 (10-20); Bilirubin,Total 0.3 mg/dl (0.2-1); Calcium 8.6 mg/dl (8.5-10.1); Creatinine Clr Calc Pharmacy 151.5 ml/min; Est GFR (African American) 140.1; Est GFR (Non-African American) 120.9; Globulin 3.6 gm/dl (2.5-4.0); Potassium 3.6 mmol/L (3.5-5.1); Total Protein 5.5 gm/dl (6.4-8.2)
[2018-08-30] MEDS: DOCUSATE SODIUM 100 MG CAP PO SCH ×2 (08:19→20:18)
[2018-08-30] MEDS ORDERED: PRENATAL VITAMIN 1 TAB PO SCH (09:00)
[2018-08-31] MEDS: ACETAMINOPHEN 325 MG TAB PO PRN ×2 (00:31→06:43)
[2018-08-31 07:06] LABS: Mean Platelet Volume 10.2 fL (7.4-10.4); Platelet Count 194 K/uL (130-400)
[2018-08-31 07:13] LABS: Hematocrit (blood only) 32.2 % (37-47); Hemoglobin 11.3 g/dL (12.0-16.0); Mean Corpuscular Hgb Conc 35.1 g/dL (32-36); Mean Corpuscular Volume 87.3 fL (80-100); RDW Coefficient of Variation 14.5 % (11.5-14.5); RDW Standard Deviation 45.6 fL (36.4-46.3); Red Blood Count 3.69 M/uL (4.2-5.4); White Blood Count 5.79 K/uL (4.8-10.8)
--- NOTE | 2018-08-31 07:51 | Obstetrical Progress Note ---
Date of Service August 31, 2018 Assessment & Plan (1) Status post vaginal delivery: - no localizing source of infection - WBC this AM 5.7 - O2 Sat 97% - PE unremarkable - OK for D/C from an OB standpoint - will arrange outpatient f/u with [facility] prior to d/c - OB D/C instructions given, f/u in 6 weeks Subjective Patient complaining of shaking chills in difficulty taking a deep breath. Patient states that the symptoms have been going on for at least a week prior to delivery. She is also having a trouble with a headache. The headache was felt to be secondary to the PIH prior to delivery. The headache is not improved. The patient was evaluated in the emergency room last week and was felt to have a urinary tract infection. She was treated with antibiotics which she just completed. Patient states that she just does not feel well. She states that her temperature at home was as high as 100.5 prior to delivery. Temperature returns to normal with Tylenol. Patient is seen by [facility] as her primary care. Physical Exam Vital Signs (Past 24 Hours) Last Vital Signs Temp 100.4 F H 08/31/18 06:43 Pulse 120 H 08/31/18 06:43 Resp 22 08/31/18 06:43 BP 120/85 08/31/18 06:43 Pulse Ox 97 08/31/18 06:43 Constitutional WD/WN, vitals as above Respiratory Auscultation: lungs clear to auscultation bilaterally Cardiovascular RRR, no murmur, no edema Rate/Rhythm: + tachycardic Extremities: no calf tenderness
[2018-08-31 07:55] LABS: ALC (manual) 2.25 K/uL (1.2-3.4); Eosinophils % (manual) 1.7 %; Lymphocytes # (manual) 1.25 K/uL (1.2-3.4); Lymphocytes % (manual) 21.6 %; Monocytes % (manual) 1.7 %; Myelocytes # (manual) 0.05 K/uL (0-0); Myelocytes % (manual) 0.9 %; Neutrophils % (manual) 56.9 %; RBC Morphology Unremarkable
[2018-08-31] MEDS: DOCUSATE SODIUM 100 MG CAP PO SCH (08:53)
--- NOTE | 2018-08-31 11:50 | Obstetrical Progress Note ---
Date of Service August 31, 2018 Subjective PPD#2. Has been feeling "under the weather" for the past 2 weeks. States she has off/on fever/chills, generalized malaise. No nausea/vomiting. Occasional shortness of breath, chest pain. Was treated by ER for UTI with abx, urine culture grew out lactobacillus. Vitals show tachycardia, elevated temp this AM 100.4. Since, has had normal temp. BP wnl. Normal lung sounds, no fundal tenderness. No LE edema/calf tenderness. Preeclampsia labs trending normal, WBC normal. I do not believe patient's symptoms to be related to recent delivery since this has been ongoing for the past few weeks, however in light of tachycardia and complaint of chest pain, will obtain CT to rule out PE. She has outpatient appointment for followup with family medicine office tomorrow. She would like to go home, and is agreeable to plan. Results & Data Vital Signs (Past 12 Hours) Vital Signs Temp Pulse Resp BP Pulse Ox 08/31/18 07:35 97.7 F 124 H 20 126/82 97 08/31/18 06:43 100.4 F H 120 H 22 120/85 97 08/31/18 05:55 99.7 F H 111 H 20 116/70 100 08/31/18 00:20 98.8 F 105 H 18 125/88
[2018-08-31] MEDS ORDERED: OPTIRAY 320 125ml IV PRN (12:52)
--- NOTE | 2018-08-31 13:03 | CT Scan Report ---
CT angio chest PE protocol CT DOSE: 773.33 mGy.cm HISTORY: Chest pain. Dyspnea. PE TECHNIQUE: Multiaxial CT images of the chest were performed following the intravenous administration of contrast to evaluate the pulmonary arteries. Maximal intensity projection images were also obtaine d. A dose lowering technique was utilized adhering to the principles of ALARA. COMPARISON STUDY: None. FINDINGS: There is a normal caliber thoracic aorta with no evidence for dissection. There is no evide nce for pulmonary embolus. No pleural effusions. No pneumothorax. The liver and spleen are unremarkab le. No mediastinal or hilar lymphadenopathy. The central airways are patent. The lungs are clear. Sof t tissue density in the substernal/anterior mediastinal region felt to represent residual thymic tiss ue. IMPRESSION: No evidence for pulmonary embolus. The lungs are clear. The above report was generated using voice recognition software. It may contain grammatical, syntax or spelling errors. Electronically signed by: Gregory Lane M.D. 08/31/2018 1:02 PM
--- NOTE | 2018-08-31 13:26 | Obstetrical Progress Note ---
Date of Service August 31, [address] chest negative, lungs clear, no PE. Patient is pumping in room. I discussed results with her. She states she feels ok now, but just isn't sure why she is waking up in the middle of the night feeling like she can't really catch her breath. I discussed with her that I think it is reasonable, given negative imaging and 2+ weeks duration of symptoms, for her to followup tomorrow at her scheduled outpatient family practice visit. She is agreeable. Results & Data Vital Signs (Past 12 Hours) Vital Signs Temp Pulse Resp BP Pulse Ox 08/31/18 07:35 97.7 F 124 H 20 126/82 97 08/31/18 06:43 100.4 F H 120 H 22 120/85 97 08/31/18 05:55 99.7 F H 111 H 20 116/70 100
== END 2018-08-31 14:45 | disposition home or self-care (01) | DRG 807 ==
LOC: 4S1 07:38 → 4S2 22:40

== ENCOUNTER 2020-02-24 17:24 | Observation (INO) ==
[2020-02-24] MEDS ORDERED: SODIUM CHLORIDE 0.9% 1000ML 2,000 ML IV ONE (18:49)
[2020-02-24] MEDS ORDERED: ONDANSETRON INJ 2 MG/ML 2 ML VIAL IV STA (18:49)
--- NOTE | 2020-02-24 18:53 | Emergency Department Note ---
Impression & Plan Hyperglycemia due to diabetes mellitus, Morbid obesity with BMI of 50.0-59.9, adult, Abscess of skin, Cellulitis ED Provider Note NAME: GE EGAN AGE: 24 SEX: F : 1995 ARRIVES VIA: Walk-In INFORMANT: Patient ED PROVIDER(S): Luis Hernandez DO CHIEF COMPLAINT: Elevated blood sugars HPI: Patient is a 24-year-old female who was just seen here yesterday for elevated blood sugars. She is concerned that she believes she was sent home and was in DKA. She called her motorized squad captain who referred her back into the ER because she was sent home in DKA. She is per report a type II diabetic. On Wednesday she noticed redness and swelling in the suprapubic region. This gradually worsened. She was seen here yesterday and had an incision and drainage of the abscess and placed on doxycycline, given insulin and fluids and discharged to follow-up with motorized squad captain as an outpatient. She has been on Metformin but stopped that 2 months ago. She denies any runny nose or sore throat. No loss of taste or smell. No other exacerbating remitting factors. ROS: See above HPI for pertinent positives & negatives. A total of 10 systems reviewed and were otherwise negative. PAST MEDICAL HISTORY:See Below PAST SURGICAL HISTORY:See Below FAMILY HISTORY:See Below SOCIAL HISTORY:See Below HOME MEDICATIONS:See Below ALLERGIES:See Below VITALS:See Below PHYSICAL EXAMINATION: GENERAL: Sitting up in bed, alert, well appearing, morbidly obese EYE EXAM: normal conjunctiva. PERRL and EOM's grossly intact. OROPHARYNX: no exudate, no erythema, lips, buccal mucosa, and tongue normal and mucous membranes are moist NECK: supple, no nuchal rigidity, no adenopathy, non-tender LUNGS: Clear to auscultation. Normal chest wall mechanics HEART: no murmurs, S1 normal and S2 normal ABDOMEN: abdomen soft, non-tender, normo-active bowel sounds, no masses, no rebound or guarding. Nonerythematous in the suprapubic region with a 1 cm incision no drainage. UPPER EXTREMITIES: upper extremities are grossly normal. LOWER EXTREMITIES: No pitting edema. NEURO EXAM: Normal sensorium, cranial nerves II-XII grossly intact, normal speech, no gross weakness of arms, no gross weakness of legs. MEDICAL DECISION MAKING: Patient is a 24-year-old female morbidly obese who presents the ER referred in by endocrinology for repeat evaluation. Patient is concerned that she was sent home in DKA yesterday and should be admitted today. Upon arrival I reviewed the blood work. I explained to the patient at length that she was not in DKA yesterday but we will obtain blood work and go from there. IV was established blood work was obtained. Following this explanation the patient was extremely upset and went to see another physician. She did not want me to come back in the room. After blood work was obtained I went back into the room and explained at length that yesterday she was not in DKA as she was not acidotic. I did explain that her sugars were elevated. Discussed with endocrinology tonight. As she is not technically established with endocrinology they are unable to call her in insulin and will would be unable to see her on Wednesday. She had previously seen the pack puller who was discussing with the motorized squad captain during her and managing her sugars but technically not established with endocrinology. Explained at length that her sugars are elevated but her VBG is normal and her bicarb is normal. She is not acidotic. If it was a possibility for her to get into see endocrinology we could discharge her however this is unlikely based on my conversation with endocrinology consequently she will need to be observed for insulin training in the morning. Labs tonight showed no significant leukocytosis and hemoglobin 16 which I favor secondary to dehydration. VBG with a pH of 7.39 and a bicarb of 21. BMP with a normal bicarb and no gap. She was given IV fluids and insulin. Do favor the inciting factor is likely the abscess which was I indeed yesterday. BSG trended down 280. UA was clean. was negative. Patient was updated bedside and discussed with the hospitalist for further evaluation. Triage Nursing notes reviewed. Prior medical records reviewed Vital Signs: reviewed and remarkable for tachycardic and hypertensive Differential diagnosis: Differential diagnoses includes but is not limited to gastritis, peptic ulcer disease, GERD, gallbladder disease, pancreatitis, small bowel obstruction, acute coronary syndrome, pericarditis, ischemic bowel, irritable bowel disease, irritable bowel syndrome, appendicitis, diverticulitis, malignancy, hernia, urinary tract infection, torsion, /ectopic (if female), perforation, trauma, infectious. ER treatment provided: See below Diagnostics interpreted by me: ECG: none Cardiac Monitoring: An order was placed for continuous cardiac monitoring. The monitor shows a rate of 90 with sinus rhythm. Laboratory studies: As stated above and show below. Imaging studies: See below Consultation(s): Discussed with motorized squad captain from [facility] who called in Dr. Rivera ED COURSE: Procedures: none Critical Care: None Past Med/Surg History Medical History (Updated 02/24/20 @ 23:59 by Luis Hernandez DO) Anxiety Depression Fatty liver Gastroesophageal reflux disease Mild preeclampsia Morbid obesity with BMI of 50.0-59.9, adult Pneumonia Restless leg syndrome Seizures pt states she had a few as a child, never diagnosed with epilepsy; last was over 10yrs ago--no neurologist, no meds Surgical History (Updated 11/02/19 @ 17:16 by Cuco Light MD) History of tonsillectomy and adenoidectomy Ernest teeth extracted Family History (System 10/30/19 @ 12:08 by Sarah Severino) Grandmother (Maternal) Family history of diabetes mellitus Aunt Family history of diabetes mellitus Other No family history of adverse response to anesthesia Social History (System 10/30/19 @ 12:08 by Sarah Severino) Smoking Status: Never smoker Tobacco Type: E-cigarettes / Vaping Second Hand Exposure: Yes (parents smoked); Hx Alcohol Use: Yes Alcohol type: beer, wine and hard liquor Hx Substance Use: No Preferred Language: Burmese Communication Ability: Effective [employer] Stocker Required: No Beliefs That Will Affect Care: None marital status: Single Current Living Situation: Family and Significant Other Current Living Situation Comment: Lives with boyfriend and son current occupational status: student Feels Safe at Home: Yes Assistive Devices: Glasses Allergies Allergies Allergy/AdvReac Type Severity Reaction Status Date / Time fluoxetine AdvReac Intermediate Bad Verified 02/24/20 20:08 thoughts diphenhydramine AdvReac Mild jittery Verified 02/24/20 20:08 [From [employer] (diphenhydramine)] Home Meds Home Medications Medication Instructions Recorded Confirmed etonogestrel 68 mg subdermal 68 mg SUBDERMAL CONTINOUS ea 12/08/18 02/24/20 implant cholecalciferol (vitamin D3) 3,000 unit PO QAM 08/30/19 02/24/20 [Vitamin D3] cyanocobalamin (vitamin B-12) 2,500 mcg SUBLINGUAL QAM 08/30/19 02/24/20 [Vitamin B-12] multivitamin 1 tab PO QAM 02/23/20 02/24/20 Previous Rx's Medication Instructions Recorded acetone (urine) test #50 ea 11/06/19 pen needle, diabetic 32 gauge x #100 ea 11/06/19 5/32" blood sugar diagnostic #150 ea 11/10/19 lancets 33 gauge #150 ea 11/10/19 doxycycline hyclate 100 mg PO BID 7 Days #14 cap 02/24/20 Results & Data (ED) Vital Signs Vital Signs - 24 hr 02/24/20 17:37 02/24/20 19:27 02/24/20 19:32 Temperature 36.9 C Temperature Source Oral Pulse Rate 111 H Pulse Rate [Apical] 93 H Respiratory Rate 20 18 Respiratory Effort / Characteristics Non-Labored Spontaneous Non-Labored Respiratory Depth Normal Normal Respiratory Pattern Regular Blood Pressure 150/108 H Blood Pressure [Left Arm] Blood Pressure Mean 122 Blood Pressure Mean [Left Arm] Blood Pressure Position Sitting Pulse Oximetry 97 98 Oxygen Delivery Method Room Air Room Air Room Air Sepsis Recent Fever Within 48 Hours No Sepsis New/Unexplained Change in Mental Status N/A Sepsis Action Taken by Nursing No Action Required 02/24/20 19:34 02/24/20 21:28 02/24/20 22:54 Temperature Temperature Source Pulse Rate 96 H Pulse Rate [Apical] 91 H 92 H Respiratory Rate 21 22 17 Respiratory Effort / Characteristics Respiratory Depth Respiratory Pattern Blood Pressure 154/100 H Blood Pressure [Left Arm] 139/106 H 128/82 Blood Pressure Mean 105 Blood Pressure Mean [Left Arm] 117 97 Blood Pressure Position Pulse Oximetry 98 97 97 Oxygen Delivery Method Room Air Room Air Sepsis Recent Fever Within 48 Hours Sepsis New/Unexplained Change in Mental Status Sepsis Action Taken by Nursing Laboratory Data Result diagrams: 02/24/20 19:28 02/24/20 19:22 Lab Results 02/24/20 02/24/20 02/24/20 Range/Units 17:43 19:22 19:24 WBC (4.8-10.8) K/uL RBC (4.2-5.4) M/uL Hgb (12.0-16.0) g/dL POC Hgb 17.0 H (12.0-16.0) g/dl Hct (37-47) % POC Hct 50 H (37-47) % MCV (80-100) fL MCH (25-34) pg MCHC (32-36) g/dL RDW Std Deviation (36.4-46.3) fL RDW Coeff of Rishi (11.5-14.5) % Plt Count (130-400) K/uL MPV (7.4-10.4) fL Immature Gran % (Auto) % Neut % (Auto) % Lymph % (Auto) % Turner % (Auto) % Eos % (Auto) % Baso % (Auto) % Neut # (Auto) (1.4-6.5) K/uL Lymph # (Auto) (1.2-3.4) K/uL Turner # (Auto) (0.11-0.59) K/uL Eos # (Auto) (0-0.5) K/uL Baso # (Auto) (0-0.2) K/uL Immature Gran # (Auto) (0.00-0.02) K/uL VBG pH (7.36-7.41) VBG pCO2 (38-50) mmHg VBG pO2 mmHg VBG HCO3 mmol/L VBG O2 Saturation % VBG Base Excess mEq/L Barometric Pressure mm/Hg POC Sodium 135 (135-144) mmol/L Sodium 133 L (136-145) mmol/L POC Potassium 4.2 (3.3-5.0) mmol/L Potassium 4.1 (3.5-5.1) mmol/L POC Chloride 101 (101-112) mmol/L Chloride 104 (98-107) mmol/L Carbon Dioxide 23 (21-32) mmol/L POC Total CO2 22 L (24-31) mmol/L Anion Gap 6.0 (3-11) POC Anion Gap 16.0 (16-25) mmol/L POC BUN 18 (7-18) mg/dl BUN 17 (7-18) mg/dl Creatinine 0.98 (0.6-1.2) mg/dl POC Creatinine 0.6 (0.6-1.3) mg/dl Est Cr Clr Drug Dosing 112.7 ml/min Est GFR ( Amer) 94.2 Est GFR (Non-Af Amer) 81.3 BUN/Creatinine Ratio 16.9 (10-20) Glucose 453 H* (70-99) mg/dl POC Glucose 540 H* (70-99) mg/dl POC Glucose (other) 445 H* (70-99) mg/dl Calcium 9.3 (8.5-10.1) mg/dl POC Ioniz Calcium Ciro 1.18 (1.12-1.32) mmol/l Total Bilirubin 0.6 (0.2-1) mg/dl AST 38 H (15-37) U/L ALT 92 H (12-78) U/L Alkaline Phosphatase 94 (45-117) U/L Total Protein 7.8 (6.4-8.2) gm/dl Albumin 3.8 (3.4-5.0) gm/dl Globulin 4.0 (2.5-4.0) gm/dl Albumin/Globulin Ratio 1.0 (0.9-2) Lipase 116 (73-393) U/L Beta-Hydroxybutyric Acd 3.95 H (0.2-2.81) mg/dl Urine Color Urine Appearance (Clear) Urine pH (4.5-7.5) Ur Specific [place] (1.000-1.030) Urine Protein (Negative) Urine Glucose (UA) (Negative) Urine Ketones (Negative) Urine Blood (Negative) Urine Nitrite (Negative) Urine Bilirubin (Negative) Urine Urobilinogen (Negative) Ur Leukocyte Esterase (Negative) Urine WBC (Auto) (0-5) /hpf Urine RBC (Auto) (0-4) /hpf U Hyaline Cast (Auto) (0-5) /lpf U Epithel Cells (Auto) (0-5) /lpf Urine Bacteria (Auto) (Negative) POC Ur Test (NEG) COVID-19 Eval Order COVID-19 PCR (Negative) 02/24/20 02/24/20 02/24/20 Range/Units 19:26 19:28 19:30 WBC 7.59 (4.8-10.8) K/uL RBC 5.37 (4.2-5.4) M/uL Hgb 16.3 H (12.0-16.0) g/dL POC Hgb (12.0-16.0) g/dl Hct 47.9 H (37-47) % POC Hct (37-47) % MCV 89.2 (80-100) fL MCH 30.4 (25-34) pg MCHC 34.0 (32-36) g/dL RDW Std Deviation 40.2 (36.4-46.3) fL RDW Coeff of Rishi 12.5 (11.5-14.5) % Plt Count 258 (130-400) K/uL MPV 11.3 H (7.4-10.4) fL Immature Gran % (Auto) 0.7 % Neut % (Auto) 46.7 % Lymph % (Auto) 42.8 % Turner % (Auto) 7.9 % Eos % (Auto) 1.6 % Baso % (Auto) 0.3 % Neut # (Auto) 3.55 (1.4-6.5) K/uL Lymph # (Auto) 3.25 (1.2-3.4) K/uL Turner # (Auto) 0.60 H (0.11-0.59) K/uL Eos # (Auto) 0.12 (0-0.5) K/uL Baso # (Auto) 0.02 (0-0.2) K/uL Immature Gran # (Auto) 0.05 H (0.00-0.02) K/uL VBG pH 7.39 (7.36-7.41) VBG pCO2 36 L (38-50) mmHg VBG pO2 50 mmHg VBG HCO3 21 mmol/L VBG O2 Saturation 85.5 % VBG Base Excess -3.1 mEq/L Barometric Pressure 742.1 mm/Hg POC Sodium (135-144) mmol/L Sodium (136-145) mmol/L POC Potassium (3.3-5.0) mmol/L Potassium (3.5-5.1) mmol/L POC Chloride (101-112) mmol/L Chloride (98-107) mmol/L Carbon Dioxide (21-32) mmol/L POC Total CO2 (24-31) mmol/L Anion Gap (3-11) POC Anion Gap (16-25) mmol/L POC BUN (7-18) mg/dl BUN (7-18) mg/dl Creatinine (0.6-1.2) mg/dl POC Creatinine (0.6-1.3) mg/dl Est Cr Clr Drug Dosing ml/min Est GFR ( Amer) Est GFR (Non-Af Amer) BUN/Creatinine Ratio (10-20) Glucose (70-99) mg/dl POC Glucose (70-99) mg/dl POC Glucose (other) (70-99) mg/dl Calcium (8.5-10.1) mg/dl POC Ioniz Calcium Ciro (1.12-1.32) mmol/l Total Bilirubin (0.2-1) mg/dl AST (15-37) U/L ALT (12-78) U/L Alkaline Phosphatase (45-117) U/L Total Protein (6.4-8.2) gm/dl Albumin (3.4-5.0) gm/dl Globulin (2.5-4.0) gm/dl Albumin/Globulin Ratio (0.9-2) Lipase (73-393) U/L Beta-Hydroxybutyric Acd (0.2-2.81) mg/dl Urine Color Yellow Urine Appearance Cloudy A (Clear) Urine pH 5.0 (4.5-7.5) Ur Specific [place] 1.040 H (1.000-1.030) Urine Protein Negative (Negative) Urine Glucose (UA) 3+ H (Negative) Urine Ketones Trace H (Negative) Urine Blood 3+ H (Negative) Urine Nitrite Negative (Negative) Urine Bilirubin Negative (Negative) Urine Urobilinogen Negative (Negative) Ur Leukocyte Esterase Negative (Negative) Urine WBC (Auto) 1-5 (0-5) /hpf Urine RBC (Auto) >30 H (0-4) /hpf U Hyaline Cast (Auto) 1-5 (0-5) /lpf U Epithel Cells (Auto) >30 H (0-5) /lpf Urine Bacteria (Auto) Negative (Negative) POC Ur Test (NEG) COVID-19 Eval Order COVID-19 PCR (Negative) 02/24/20 02/24/20 02/24/20 Range/Units 19:30 20:21 21:23 WBC (4.8-10.8) K/uL RBC (4.2-5.4) M/uL Hgb (12.0-16.0) g/dL POC Hgb (12.0-16.0) g/dl Hct (37-47) % POC Hct (37-47) % MCV (80-100) fL MCH (25-34) pg MCHC (32-36) g/dL RDW Std Deviation (36.4-46.3) fL RDW Coeff of Rishi (11.5-14.5) % Plt Count (130-400) K/uL MPV (7.4-10.4) fL Immature Gran % (Auto) % Neut % (Auto) % Lymph % (Auto) % Turner % (Auto) % Eos % (Auto) % Baso % (Auto) % Neut # (Auto) (1.4-6.5) K/uL Lymph # (Auto) (1.2-3.4) K/uL Turner # (Auto) (0.11-0.59) K/uL Eos # (Auto) (0-0.5) K/uL Baso # (Auto) (0-0.2) K/uL Immature Gran # (Auto) (0.00-0.02) K/uL VBG pH (7.36-7.41) VBG pCO2 (38-50) mmHg VBG pO2 mmHg VBG HCO3 mmol/L VBG O2 Saturation % VBG Base Excess mEq/L Barometric Pressure mm/Hg POC Sodium (135-144) mmol/L Sodium (136-145) mmol/L POC Potassium (3.3-5.0) mmol/L Potassium (3.5-5.1) mmol/L POC Chloride (101-112) mmol/L Chloride (98-107) mmol/L Carbon Dioxide (21-32) mmol/L POC Total CO2 (24-31) mmol/L Anion Gap (3-11) POC Anion Gap (16-25) mmol/L POC BUN (7-18) mg/dl BUN (7-18) mg/dl Creatinine (0.6-1.2) mg/dl POC Creatinine (0.6-1.3) mg/dl Est Cr Clr Drug Dosing ml/min Est GFR ( Amer) Est GFR (Non-Af Amer) BUN/Creatinine Ratio (10-20) Glucose (70-99) mg/dl POC Glucose 365 H* 282 H (70-99) mg/dl POC Glucose (other) (70-99) mg/dl Calcium (8.5-10.1) mg/dl POC Ioniz Calcium Ciro (1.12-1.32) mmol/l Total Bilirubin (0.2-1) mg/dl AST (15-37) U/L ALT (12-78) U/L Alkaline Phosphatase (45-117) U/L Total Protein (6.4-8.2) gm/dl Albumin (3.4-5.0) gm/dl Globulin (2.5-4.0) gm/dl Albumin/Globulin Ratio (0.9-2) Lipase (73-393) U/L Beta-Hydroxybutyric Acd (0.2-2.81) mg/dl Urine Color Urine Appearance (Clear) Urine pH (4.5-7.5) Ur Specific [place] (1.000-1.030) Urine Protein (Negative) Urine Glucose (UA) (Negative) Urine Ketones (Negative) Urine Blood (Negative) Urine Nitrite (Negative) Urine Bilirubin (Negative) Urine Urobilinogen (Negative) Ur Leukocyte Esterase (Negative) Urine WBC (Auto) (0-5) /hpf Urine RBC (Auto) (0-4) /hpf U Hyaline Cast (Auto) (0-5) /lpf U Epithel Cells (Auto) (0-5) /lpf Urine Bacteria (Auto) (Negative) POC Ur Test NEG (NEG) COVID-19 Eval Order COVID-19 PCR (Negative) 02/24/20 02/24/20 Range/Units 21:45 21:45 WBC (4.8-10.8) K/uL RBC (4.2-5.4) M/uL Hgb (12.0-16.0) g/dL POC Hgb (12.0-16.0) g/dl Hct (37-47) % POC Hct (37-47) % MCV (80-100) fL MCH (25-34) pg MCHC (32-36) g/dL RDW Std Deviation (36.4-46.3) fL RDW Coeff of Rishi (11.5-14.5) % Plt Count (130-400) K/uL MPV (7.4-10.4) fL Immature Gran % (Auto) % Neut % (Auto) % Lymph % (Auto) % Turner % (Auto) % Eos % (Auto) % Baso % (Auto) % Neut # (Auto) (1.4-6.5) K/uL Lymph # (Auto) (1.2-3.4) K/uL Turner # (Auto) (0.11-0.59) K/uL Eos # (Auto) (0-0.5) K/uL Baso # (Auto) (0-0.2) K/uL Immature Gran # (Auto) (0.00-0.02) K/uL VBG pH (7.36-7.41) VBG pCO2 (38-50) mmHg VBG pO2 mmHg VBG HCO3 mmol/L VBG O2 Saturation % VBG Base Excess mEq/L Barometric Pressure mm/Hg POC Sodium (135-144) mmol/L Sodium (136-145) mmol/L POC Potassium (3.3-5.0) mmol/L Potassium (3.5-5.1) mmol/L POC Chloride (101-112) mmol/L Chloride (98-107) mmol/L Carbon Dioxide (21-32) mmol/L POC Total CO2 (24-31) mmol/L Anion Gap (3-11) POC Anion Gap (16-25) mmol/L POC BUN (7-18) mg/dl BUN (7-18) mg/dl Creatinine (0.6-1.2) mg/dl POC Creatinine (0.6-1.3) mg/dl Est Cr Clr Drug Dosing ml/min Est GFR ( Amer) Est GFR (Non-Af Amer) BUN/Creatinine Ratio (10-20) Glucose (70-99) mg/dl POC Glucose (70-99) mg/dl POC Glucose (other) (70-99) mg/dl Calcium (8.5-10.1) mg/dl POC Ioniz Calcium Ciro (1.12-1.32) mmol/l Total Bilirubin (0.2-1) mg/dl AST (15-37) U/L ALT (12-78) U/L Alkaline Phosphatase (45-117) U/L Total Protein (6.4-8.2) gm/dl Albumin (3.4-5.0) gm/dl Globulin (2.5-4.0) gm/dl Albumin/Globulin Ratio (0.9-2) Lipase (73-393) U/L Beta-Hydroxybutyric Acd (0.2-2.81) mg/dl Urine Color Urine Appearance (Clear) Urine pH (4.5-7.5) Ur Specific [place] (1.000-1.030) Urine Protein (Negative) Urine Glucose (UA) (Negative) Urine Ketones (Negative) Urine Blood (Negative) Urine Nitrite (Negative) Urine Bilirubin (Negative) Urine Urobilinogen (Negative) Ur Leukocyte Esterase (Negative) Urine WBC (Auto) (0-5) /hpf Urine RBC (Auto) (0-4) /hpf U Hyaline Cast (Auto) (0-5) /lpf U Epithel Cells (Auto) (0-5) /lpf Urine Bacteria (Auto) (Negative) POC Ur Test (NEG) COVID-19 Eval Order Covid19 Done at [facility] COVID-19 PCR NEGATIVE (Negative) Administered Medications Discontinued Medications Sodium Chloride (Nss 1000ml) 2,000 mls @ 999 mls/hr IV .Q2H1M ONE Stop: 02/24/20 20:49 Last Infusion: 02/24/20 21:27 Dose: 0 mls/hr Documented by: [id number] Admin: 02/24/20 19:31 Dose: 999 mls/hr Documented by: [id number] Ceftriaxone Sodium (Rocephin) 2,000 mg in 70 mls @ 140 mls/hr IV NOW STA Stop: 02/24/20 20:47 Last Infusion: 02/24/20 21:27 Dose: 0 mls/hr Documented by: [id number] Admin: 02/24/20 20:33 Dose: 140 mls/hr Documented by: [id number] Insulin Human Regular (Novolin-R Insulin Per Unit Charge) 6 units IV NOW STA Stop: 02/24/20 20:08 Last Admin: 02/24/20 20:22 Dose: 6 units Documented by: [id number] Cosigned by: [id number] Ondansetron HCl (Ondansetron Inj 2 Mg/Ml 2 Ml Vial) 4 mg IV NOW STA Stop: 02/24/20 18:50 Last Admin: 02/24/20 19:31 Dose: 4 mg Documented by: [id number] Discharge Plan Visit Data Chief Complaint: Illness Stated Complaint: DKA ED Provider: Luis Hernandez Discharge Problem: Hyperglycemia due to diabetes mellitus, Morbid obesity with BMI of 50.0-59.9, adult, Abscess of skin, Cellulitis Patient Disposition: Admitted As Inpatient Forms Stand Alone Forms: My [facility] Prescriptions Prescriptions: No Action (DME) blood sugar diagnostic [OneTouch Verio test strips] Strip See Rx Instructions .ROUTE .MEDSUPPLY Qty: 150 RF: 11 (DME) lancets [OneTouch Delica Lancets] 33 gauge misc See Rx Instructions [id number] .MEDSUPPLY Qty: 150 RF: 11 (DME) Ketone Urine Test Strip See Rx Instructions .ROUTE .MEDSUPPLY Qty: 50 RF: 2 (DME) pen needle, diabetic [BD Ultra-Fine Rasheeda Pen Needle] 32 gauge x 5/32" needle See Rx Instructions [id number] .MEDSUPPLY Qty: 100 RF: 5 Nexplanon 68 mg implant 68 mg subdermal CONTINOUS RF: 0 cyanocobalamin (vitamin B-12) [Vitamin B-12] 2,500 mcg Tablet, Sublingual 2,500 mcg SUBLINGUAL QAM RF: 0 cholecalciferol (vitamin D3) [Vitamin D3] 25 mcg (1,000 unit) Tablet 3,000 unit PO QAM RF: 0 multivitamin Tablet 1 tab PO QAM RF: 0 doxycycline hyclate 100 mg capsule 100 mg PO BID 7 Days Qty: 14 RF: 0 Referrals Referrals: Melanie Boss DO [Primary Care Provider] - Discharge Problem: Abscess of skin Qualifiers: Site of cutaneous abscess: unspecified site Qualified Code(s): L02.91 - Cutaneous abscess, unspecified Cellulitis Qualifiers: Site of cellulitis: unspecified site Qualified Code(s): L03.90 - Cellulitis, unspecified
[2020-02-24 19:37] LABS: Base Excess VBG -3.1 mEq/L; Oxygen Saturation VBG 85.5 %; pH VBG 7.39 (7.36-7.41)
[2020-02-24 19:39] LABS: Basophils # (auto) 0.02 K/uL (0-0.2); Basophils % (auto) 0.3 %; Eosinophils # (auto) 0.12 K/uL (0-0.5); Eosinophils % (auto) 1.6 %; Hematocrit (blood only) 47.9 % (37-47); Hemoglobin 16.3 g/dL (12.0-16.0); Immature Granulocytes # (auto) 0.05 K/uL (0.00-0.02); Immature Granulocytes % (auto) 0.7 %; Lymphocytes # (auto) 3.25 K/uL (1.2-3.4); Lymphocytes % (auto) 42.8 %; Mean Corpuscular Hemoglobin 30.4 pg (25-34); Mean Corpuscular Volume 89.2 fL (80-100); Mean Platelet Volume 11.3 fL (7.4-10.4); Monocytes % (auto) 7.9 %; Neutrophils # (auto) 3.55 K/uL (1.4-6.5); Neutrophils % (auto) 46.7 %; Platelet Count 258 K/uL (130-400); RDW Coefficient of Variation 12.5 % (11.5-14.5); RDW Standard Deviation 40.2 fL (36.4-46.3); Red Blood Count 5.37 M/uL (4.2-5.4); White Blood Count 7.59 K/uL (4.8-10.8)
[2020-02-24 19:47] LABS: iSTAT Creatinine 0.6 mg/dl (0.6-1.3); iSTAT Ionized Calcium 1.18 mmol/l (1.12-1.32); iSTAT Potassium 4.2 mmol/L (3.3-5.0)
[2020-02-24 19:57] LABS: Albumin Level 3.8 gm/dl (3.4-5.0); BUN Creatinine Ratio 16.9 (10-20); Calcium 9.3 mg/dl (8.5-10.1); Creatinine Clr Calc Pharmacy 112.7 ml/min; Est GFR (African American) 94.2; Est GFR (Non-African American) 81.3; Potassium 4.1 mmol/L (3.5-5.1)
[2020-02-24 19:59] LABS: Bilirubin,Total 0.6 mg/dl (0.2-1); Total Protein 7.8 gm/dl (6.4-8.2)
[2020-02-24] MEDS ORDERED: NovoLIN-R INSULIN PER UNIT CHARGE IV STA (20:07)
[2020-02-24 20:08] LABS: Beta-Hydroxybutyrate 3.95 mg/dl (0.2-2.81)
[2020-02-24 20:13] LABS: Appearance Urine Cloudy (Clear); Bacteria Urine Automated Negative (Negative); Bilirubin Urine Negative (Negative); Blood Urine 3+ (Negative); Color Urine Yellow; Epithelial Cell Urine Auto >30 /lpf (0-5); Glucose Urine UA 3+ (Negative); Ketones Urine Trace (Negative); Leukocyte Esterase Urine Negative (Negative); Nitrite Urine Negative (Negative); Protein Urine Negative (Negative); RBC Urine Automated >30 /hpf (0-4); Urobilinogen Urine Negative (Negative)
[2020-02-24] MEDS ORDERED: cefTRIAXone SODIUM 2,000 MG/70 ML BAG IV STA (20:18)
--- NOTE | 2020-02-24 21:25 | History & Physical Report ---
Date of Service February 24, 2020 Assessment & Plan (1) Hyperglycemia due to diabetes mellitus: Melanie is a 24yo F with a PMHx of Type II DM who presents with hyperglycemia and fruity breath who presents for hyperglycemia Diabetes mellitus with hyperglycemia Received 6 units IV insulin in ED, BSG downtrending Beta hydroxybutyrate elevated on admission, but no gap, no metabolic alkalosis, potassium normal Sliding scale insulin based on weight entered to start morning. Additional 4 units of IV insulin, recheck BSG in 1 hour Lantus 11 units twice daily, aspart CF 35, ratio 1:12 BMP/CMP in the morning Cough Present following pneumonia in October, resolved, and has had a dry cough in the last week Son has a cold at home No shortness of breath, dyspnea. Cough is not productive. No fever Covid ordered prior to transfer to floor Cellulitis Central pubic area of erythema, tenderness consistent with cellulitis Status post incision and drainage 1 day ago Continue doxycycline No culture results available Diet: Diabetic Disposition: Med/surgical. No indication for insulin drip at this time. DVT prophylaxis: Lovenox CODE STATUS: Full code (2) Type 2 diabetes mellitus: (3) Abscess of skin: History of Present Illness Chief Complaint: Hyperglycemia Primary Care Provider: Melanie Boss DO Melanie is a 24yo F with a PMHx of Type II DM who presents with hyperglycemia and fruity breath Patient is a 24-year-old female with a past medical history of type 1 diabetes who presents with hyperglycemia with concerns for DKA after talking to her slipcover cutter. She reports yesterday she felt off and was seen in the emergency department, was found to have a skin infection and high glucose in the 400s. She was given an antibiotic and discharged with follow-up to endocrinology. She reports today her glucose was again very very high, and she had fruity breath. After talking to her slipcover cutter she was recommended to return to the emergency department for further care. She reports he was previously on Metformin until October when she had a pneumonia with hyperglycemia when she was placed on insulin and stopped her Metformin at that time. About 2 months ago she was talking to her diabetic director check who recommended that she stop taking insulin. Since that time she has not been on insulin or any oral antiglycemic's. She has not had DKA before. She reports in the last couple of days she has felt nauseous, had some diarrhea, and has felt fatigued liquid she has had high blood sugar in the past. She reports she has felt warm, but has not had a fever. Has had an intermittent cough since having pneumonia, iimproved but returned in th elast few days and is nonproductive. She has not been around anyone with Covid. She is not had any change in sense of smell or taste, although notes a fruity aroma in the last day. She denies shortness of breath and dyspnea. She reports intermittent hand numbness for 1 year on both sides. History: Reviewed Surgical history: Reviewed Allergies: No known drug allergies Medications: Reviewed. Has not been on any antidiabetic medicines in 2 months. Was discharged on doxycycline for a skin infection 1 day ago. Family history: Family history of gestational diabetes, type 1 diabetes in grandparents, no history of diabetes in parents/sibling/or her son Social: Denies tobacco, alcohol, and recreational drug use. Lives with her and son. Son has had a cold. Allergies Allergy/AdvReac Type Severity Reaction Status Date / Time fluoxetine AdvReac Intermediate Bad Verified 02/24/20 20:08 thoughts diphenhydramine AdvReac Mild jittery Verified 02/24/20 20:08 [From Unisom (diphenhydramine)] Home Medications Home Medications Medication Instructions Recorded Confirmed Type etonogestrel 68 mg subdermal 68 mg SUBDERMAL CONTINOUS 12/08/18 02/24/20 History implant cholecalciferol (vitamin D3) 3,000 unit PO QAM 08/30/19 02/24/20 History [Vitamin D3] cyanocobalamin (vitamin B-12) 2,500 mcg SUBLINGUAL QA 08/30/19 02/24/20 History [Vitamin B-12] acetone (urine) test #50 ea 11/06/19 02/24/20 Rx pen needle, diabetic 32 gauge x #100 ea 11/06/19 02/24/20 Rx 5/32" blood sugar diagnostic #150 ea 11/10/19 02/24/20 Rx lancets 33 gauge #150 ea 11/10/19 02/24/20 Rx multivitamin 1 tab PO QAM 02/23/20 02/24/20 History doxycycline hyclate 100 mg PO BID 7 Days #14 cap 11/07/20 11/07/20 Rx blood sugar diagnostic [OneTouch #100 ea 02/25/20 Rx Verio test strips] cephalexin 500 mg PO TID 7 Days #21 cap 02/25/20 Rx metformin 500 mg PO BID #60 tab 02/25/20 Rx Past Med/Surg History Medical History (Updated 02/26/20 @ 00:02 by Jay Jay Bettencourt) Abscess of skin Anxiety Cellulitis Depression Fatty liver Gastroesophageal reflux disease Hyperglycemia due to diabetes mellitus Mild preeclampsia Morbid obesity with BMI of 50.0-59.9, adult Pneumonia Restless leg syndrome Seizures pt states she had a few as a child, never diagnosed with epilepsy; last was over 10yrs ago--no neurologist, no meds Surgical History (Updated 11/02/19 @ 17:16 by Cuco Light MD) History of tonsillectomy and adenoidectomy [place] teeth extracted Family History (System 10/30/19 @ 12:08 by Sarah Severino) Grandmother (Maternal) Family history of diabetes mellitus Aunt Family history of diabetes mellitus Other No family history of adverse response to anesthesia Social History (System 10/30/19 @ 12:08 by Sarah Severino) Smoking Status: Never smoker Tobacco Type: E-cigarettes / Vaping Second Hand Exposure: Yes (parents smoked); Hx Alcohol Use: Yes Alcohol type: other Hx Substance Use: No Preferred Language: Frisian Communication Ability: Effective 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 NAD. Cooperative. Obese. Skin: Midline pubic erythema with central laceration post drainage, mild tenderness to palpation. No drainage. HEENT: Atraumatic, normocephalic. Pulm: CTAB A&P. -wheezes, -rales, -rhonchi. Symmetrical chest rise. No increase work of breathing. No respiratory distress. Cardiac: RRR, -mrg. Radial pulses intact and symmetrical. Abdominal: Nontender, nondistended, soft. BS present. CRANIAL NERVES: II: Pupils equal and reactive, no relative afferent pupillary defect, no VF cuts III, IV, : EOM intact, no gaze preference or deviation, no nystagmus. Extremities: Moving all extremities equally, no strength asymmetry to lobby porter strength/plantarflexion/dorsiflexion. Sensation grossly intact in fingertips and feet bilaterally. SENSORY: Normal to touch lower extremities without deficit or asymmetry Results & Data Results & Data ([facility]) Vital Signs (Past 12 Hours) Vital Signs Temp Pulse Pulse Resp BP Pulse Ox 02/24/20 19:34 96 H 21 154/100 H 98 02/24/20 19:32 93 H 18 98 02/24/20 17:37 36.9 C 111 H 20 150/108 H 97 Supervising Physician Co-Signing Physician Notes Attending addendum: I have physically seen this patient, have supervised the medical residents activities, and agree with the H&P unless as otherwise noted. Assessment and Plan: Hyperglycemia due to diabetes mellitus type 2- Hold Metformin. Patient did receive IV regular insulin while in the ED. Placed on Accu-Cheks before meals and at bedtime with NovoLog coverage for scale For now placed on long-acting insulin Lantus 11 units subcu twice daily Continue IV fluid rehydration Follow serial BMP, magnesium and phosphorus levels. Cellulitis of pannus- Status post I&D 1 day ago Doxycycline Remaining orders and notations as noted Resident Activity Tracking Resident Involvement: Resident Care Provided Care Provided: Adult Hospital Medicine (1) Abscess of skin Site of cutaneous abscess: other site Qualified Code(s): L02.818 - Cutaneous abscess of other sites
[2020-02-25] MEDS ORDERED: CARBOHYDRATES FOR HYPOGLYCEMIA PO PRN (00:31)
[2020-02-25] MEDS ORDERED: GLUCAGON FOR INJ 1 MG VIAL SQ PRN (00:31)
[2020-02-25] MEDS ORDERED: GLUCOSE 10 TABS/TUBE PO PRN (00:31)
[2020-02-25] MEDS ORDERED: GLUCOSE 40% GEL 15 GM TUBE PO PRN (00:31)
[2020-02-25] MEDS ORDERED: DEXTROSE 50% 50 ML SYRINGE IV PRN (00:31)
[2020-02-25] MEDS ORDERED: NovoLIN-R INSULIN PER UNIT CHARGE IV STA (00:31)
[2020-02-25] MEDS ORDERED: ACETAMINOPHEN 325 MG TAB PO PRN (00:31)
[2020-02-25] MEDS ORDERED: INSULIN HUMAN REGULAR PER UNIT 4 UNITS in SYRINGE 3.96 ML IV ONE (00:45)
[2020-02-25] MEDS ORDERED: PHARMACY GLYCEMIC MGMT CONSULT PRN (00:53)
[2020-02-25] MEDS ORDERED: INSULIN GLARGINE SOLOSTAR 100 UNITS/ML 3 ML PEN SC ONE (01:00)
[2020-02-25] MEDS ORDERED: INSULIN HUMAN REGULAR PER UNIT 3 UNITS in SYRINGE 0 ML IV STA (01:12)
[2020-02-25] MEDS: INSULIN ASPART 100 UNITS/ML 3 ML PEN SC SCH ×4 (01:53→12:44)
[2020-02-25 06:33] LABS: Basophils # (auto) 0.03 K/uL (0-0.2); Basophils % (auto) 0.5 %; Eosinophils # (auto) 0.15 K/uL (0-0.5); Eosinophils % (auto) 2.3 %; Hematocrit (blood only) 43.8 % (37-47); Immature Granulocytes # (auto) 0.04 K/uL (0.00-0.02); Immature Granulocytes % (auto) 0.6 %; Lymphocytes # (auto) 3.06 K/uL (1.2-3.4); Lymphocytes % (auto) 47.3 %; Mean Corpuscular Hemoglobin 30.6 pg (25-34); Mean Corpuscular Hgb Conc 34.2 g/dL (32-36); Mean Corpuscular Volume 89.4 fL (80-100); Monocytes # (auto) 0.41 K/uL (0.11-0.59); Monocytes % (auto) 6.3 %; Neutrophils # (auto) 2.78 K/uL (1.4-6.5); Platelet Count 244 K/uL (130-400); RDW Coefficient of Variation 12.6 % (11.5-14.5); RDW Standard Deviation 41.4 fL (36.4-46.3); White Blood Count 6.47 K/uL (4.8-10.8)
[2020-02-25 07:07] LABS: BUN Creatinine Ratio 15.1 (10-20); Calcium 8.3 mg/dl (8.5-10.1); Creatinine Clr Calc Pharmacy 171.3 ml/min; Est GFR (Non-African American) 125.1; Potassium 3.8 mmol/L (3.5-5.1)
[2020-02-25] MEDS ORDERED: ENOXAPARIN INJ 40 MG/0.4 ML SYR SQ SCH (08:00)
[2020-02-25] MEDS ORDERED: INSULIN GLARGINE SOLOSTAR 100 UNITS/ML 3 ML PEN SC SCH (09:00)
[2020-02-25] MEDS ORDERED: DOXYCYCLINE HYCLATE 100 MG CAP PO SCH (09:00)
--- NOTE | 2020-02-25 11:10 | XRay Report ---
XR chest 2V PA/lateral CLINICAL HISTORY: cough, fever; eval pneumonia COMPARISON STUDY: Chest radiograph October 29, 2019. Chest CT November 16, 2019. FINDINGS: Lung volumes are at the lower limits of normal. Lungs are clear. There is no pneumothorax o r pleural effusion. Cardiac size is normal. Mediastinal contours are normal. There is no evidence for pulmonary edema. IMPRESSION: No acute cardiopulmonary findings. ACT 112: Negative or not required by law. Electronically signed by: Bharat Santizo M.D. 02/25/2020 11:08 AM
--- NOTE | 2020-02-25 13:13 | Discharge Summary ---
Date of Service February 25, 2020 Admission HPI Per Admitting Provider Melanie is a 24yo F with a PMHx of Type II DM who presents with hyperglycemia and fruity breath Patient is a 24-year-old female with a past medical history of type 1 diabetes who presents with hyperglycemia with concerns for DKA after talking to her continuous absorption process operator. She reports yesterday she felt off and was seen in the emergency department, was found to have a skin infection and high glucose in the 400s. She was given an antibiotic and discharged with follow-up to endocrinology. She reports today her glucose was again very very high, and she had fruity breath. After talking to her continuous absorption process operator she was recommended to return to the emergency department for further care. She reports he was previously on Metformin until October when she had a pneumonia with hyperglycemia when she was placed on insulin and stopped her Metformin at that time. About 2 months ago she was talking to her diabetic electric power machine operator who recommended that she stop taking insulin. Since that time she has not been on insulin or any oral antiglycemic's. She has not had DKA before. She reports in the last couple of days she has felt nauseous, had some diarrhea, and has felt fatigued liquid she has had high blood sugar in the past. She reports she has felt warm, but has not had a fever. Has had an intermittent cough since having pneumonia, iimproved but returned in th elast few days and is nonproductive. She has not been around anyone with Covid. She is not had any change in sense of smell or taste, although notes a fruity aroma in the last day. She denies shortness of breath and dyspnea. She reports intermittent hand numbness for 1 year on both sides. History: Reviewed Surgical history: Reviewed Allergies: No known drug allergies Medications: Reviewed. Has not been on any antidiabetic medicines in 2 months. Was discharged on doxycycline for a skin infection 1 day ago. Family history: Family history of gestational diabetes, type 1 diabetes in grandparents, no history of diabetes in parents/sibling/or her son Social: Denies tobacco, alcohol, and recreational drug use. Lives with her and son. Son has had a cold. Discharge Data Allergies Allergy/AdvReac Type Severity Reaction Status Date / Time fluoxetine AdvReac Intermediate Bad Verified 02/24/20 20:08 thoughts diphenhydramine AdvReac Mild jittery Verified 02/24/20 20:08 [From Unisom (diphenhydramine)] Consultations 02/24/20 20:13 ED Decision to Admit Stat Discharge Plan Discharge Items Reason For Visit: HYPERGLYCEMIA Medications and DC Order Prescriptions: No Action (DME) blood sugar diagnostic [OneTouch Verio test strips] Strip See Rx Instructions .ROUTE .MEDSUPPLY Qty: 150 RF: 11 (DME) lancets [OneTouch Delica Lancets] 33 gauge misc See Rx Instructions [id number] .MEDSUPPLY Qty: 150 RF: 11 (DME) Ketone Urine Test Strip See Rx Instructions .ROUTE .MEDSUPPLY Qty: 50 RF: 2 (DME) pen needle, diabetic [BD Ultra-Fine Rasheeda Pen Needle] 32 gauge x 5/32" needle See Rx Instructions [id number] .MEDSUPPLY Qty: 100 RF: 5 Nexplanon 68 mg implant 68 mg subdermal CONTINOUS RF: 0 cyanocobalamin (vitamin B-12) [Vitamin B-12] 2,500 mcg Tablet, Sublingual 2,500 mcg SUBLINGUAL QAM RF: 0 cholecalciferol (vitamin D3) [Vitamin D3] 25 mcg (1,000 unit) Tablet 3,000 unit PO QAM RF: 0 multivitamin Tablet 1 tab PO QAM RF: 0 doxycycline hyclate 100 mg capsule 100 mg PO BID 7 Days Qty: 14 RF: 0 Admission Data Admit Date/Time: 02/24/20 21:30 Attending Provider: Chinmay Nixon Admit Provider: Tristan Walsh Primary Care Provider: Melanie Boss Other Providers: Corbin Alston
[2020-02-25] MEDS ORDERED: metFORMIN HCL 500 MG TAB PO SCH (13:15)
[2020-02-25] MEDS ORDERED: cephALEXin 500 MG CAP PO SCH (14:00)
--- NOTE | 2020-02-26 00:08 | Billing Data ---
Date of Service February 26, 2020 Coding Level of Care Code 85773 OBS Care - Level 3
== END 2020-02-25 16:48 | disposition home or self-care (01) ==
LOC: 3W 17:24 → ED 17:24 → SUATTDRO 21:30 → 3W 02-25 00:02

== ENCOUNTER 2020-07-03 05:37 | Observation (INO) ==
[2020-07-03] MEDS ORDERED: SODIUM CHLORIDE 0.9% 1000ML 1,000 ML IV SCH (06:00)
--- NOTE | 2020-07-03 06:06 | Emergency Department Note ---
History of Present Illness General Chief complaint: Skin Problem Stated complaint: SKIN INFECTION,DIZZY,CAN'T EAT,HIGH BLOOD SUGAR Time Seen by Provider: 07/03/20 05:46 Source: patient Mode of arrival: ambulatory Limitations: no limitations History of Present Illness Provider Complaint: + abscess/boil Onset (ago): month(s) Tetanus up to date: yes Severity: severe Maximum Pain Intensity: 10 Current Pain Intensity: 10 Quality: + sharp Pain Consistency: + constant Relieved By: + none Exacerbated By: + palpation and + movement Associated symptoms: + chills and + other (Hyperglycemia) Treatments prior to arrival: + none HPI narrative: This 24-year-old female patient with significant past medical history of type 1 diabetes which has been uncontrolled presents to the emergency department today for evaluation of an abscess on her groin. She also reports dizziness, chills, and hyperglycemia. Patient reports a history of subcutaneous abscesses and hyperglycemia. She has been admitted in the past. She states she has been afebrile but is having elevated blood sugars and this morning when she awoke she noted her blood sugar to be 400. The patient has taken no insulin today. She has only taken her 15 units of Lantus last evening. Patient states the abscess has been present for months and is drained twice but has not resolved. She has not seen a surgeon regarding the abscess. She denies any chest pain or dyspnea. No abdominal pain. There is no active discharge from the wound. Patient does admit to shaving her groin and does not often change her razor. She rates her pain a 10/10 but has taken no medications for her symptoms. Home Medications Medication Instructions Recorded Confirmed Type acetone (urine) test #50 ea 11/06/19 05/09/20 Rx multivitamin 1 tab PO QAM 02/23/20 07/03/20 History blood sugar diagnostic #200 ea 02/26/20 05/09/20 Rx insulin glargine 100 unit/mL (3 15 unit SUBCUT DAILY 90 Days #15 ml 02/26/20 07/03/20 Rx mL) subcutaneous pen lancets 33 gauge #200 ea 02/26/20 05/09/20 Rx pen needle, diabetic 32 gauge x #400 ea 02/26/20 05/09/20 Rx 5/32" insulin aspart U-100 100 unit/mL 5 unit SUBCUT TID #15 ml 03/22/20 07/03/20 Rx (3 mL) subcutaneous pen famotidine 20 mg PO BID 07/03/20 07/03/20 History metformin 500 mg PO BID 07/03/20 07/03/20 History Allergies Allergy/AdvReac Type Severity Reaction Status Date / Time fluoxetine AdvReac Intermediate Bad Verified 07/03/20 06:01 thoughts diphenhydramine AdvReac Mild jittery Verified 07/03/20 06:01 [From Unisom (diphenhydramine)] nickel AdvReac Rash Verified 07/03/20 11:22 Past Med/Surg History Medical History Abnormal thyroid function test Abscess of skin Anxiety Cellulitis Depression Diabetes Fatty liver Gastroesophageal reflux disease Hyperglycemia due to diabetes mellitus Mild preeclampsia Morbid obesity with BMI of 50.0-59.9, adult Pneumonia Restless leg syndrome Seizures pt states she had a few as a child, never diagnosed with epilepsy; last was over 10yrs ago--no neurologist, no meds Surgical History History of tonsillectomy and adenoidectomy [place] teeth extracted Family History Grandmother (Maternal) Family history of diabetes mellitus Aunt Family history of diabetes mellitus Other No family history of adverse response to anesthesia Denies family history of Ovarian cancer Breast cancer Colorectal cancer Social History Smoking Status: Never smoker Tobacco Type: E-cigarettes / Vaping Second Hand Exposure: No; Hx Alcohol Use: Yes Alcohol type: beer, wine and hard liquor Hx Substance Use: No Preferred Language: Salvadorean Communication Ability: Effective 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 Beliefs That Will Affect Care: None marital status: Single Current Living Situation: Family and Significant Other Current Living Situation Comment: lives with boyfriend and son current occupational status: student Feels Safe at Home: Yes Assistive Devices: Glasses Review of Systems A total of 10 systems reviewed and were otherwise negative Physical Exam Vital Signs: Vital Signs - 24 hr 07/03/20 05:40 Temperature 36.4 C L Temperature Source Temporal Artery Sc an Pulse Rate 121 H Respiratory Rate 20 Respiratory Effort / Characteristics Non-Labored Sponta neous Respiratory Depth Normal Blood Pressure 148/97 H Blood Pressure Sienna n 114 Pulse Oximetry 96 Oxygen Delivery Me thod Room Air Sepsis New/Unexpla ined Change in Men cora Status N/A Sepsis Action Take n by Nursing No Action Required Physical Exam: VITALS: Vitals are noted on the nurse's note and reviewed by myself. Patient is tachycardic. She is afebrile and hypertensive. GENERAL: This is a 24-year-old obese white female, in no acute distress, nondiaphoretic, well-developed well-nourished. SKIN: There is a approximately 3 cm diameter indurated area in the right mons pubis. There are 3 areas of pointing with no active discharge. There is no erythema in the area. The skin was otherwise without rashes, erythema, edema, or bruising. There is no tenting of the skin. Capillary refill less than 2 seconds. HEAD: Normocephalic atraumatic. EYES: Conjunctivae without injection, sclerae without icterus. NECK: Supple without nuchal rigidity. No lymphadenopathy. No JVD. HEART: Regular rate and rhythm without murmurs gallops or rubs. LUNGS: Clear to auscultation bilaterally without wheezes, rales or rhonchi. No retractions or accessory muscle use. ABDOMEN: Positive bowel sounds x 4. Soft, nontender, without masses or organomegaly. No guarding or rebound tenderness. MUSCULOSKELETAL: No muscle atrophy, erythema, or edema noted. Full range of mot ion without joint tenderness in all extremities. No tenderness to palpation. Normal gait. Strength 5/5 throughout. NEURO: Patient was alert and oriented to person place and time. No focal neurological deficits. Course Course The patient was seen and evaluated as above. Previous medical records reviewed. An order was placed for continuous cardiac monitoring. The monitor shows a sinus tachycardia at a rate of 121 bpm. IV access obtained, labs drawn. Patient medicated with IV fluids, rocephin, and bactrim. Imaging performed and reviewed by myself and radiologist as noted. Labs reviewed by myself. I discussed the findings with the patient at bedside. I discussed the case with my attending. I discussed the case with the pharmacist. Patient was given 6 units IV insulin and 40 milliequivalents p.o. potassium. I discussed case with the manager hi. I discussed the case with Dr. Awad, [facility] physician. He did agree to see and evaluate the patient. Administered Medications Acetaminophen (Acetaminophen 325 Mg Tab) 650 mg PO Q4H PRN PRN Reason: pain/fever Stop: 08/02/20 10:21 Last Admin: 07/03/20 15:46 Dose: 650 mg Documented by: [id number] Famotidine (Famotidine 20 Mg Tab) 20 mg PO BID PADMA Stop: 08/02/20 10:59 Last Admin: 07/03/20 20:22 Dose: 20 mg Documented by: [id number] Admin: 07/03/20 11:44 Dose: 20 mg Documented by: [id number] Vancomycin HCl 1,250 mg/ (Sodium Chloride) 275 mls @ 200 mls/hr IV Q8H PADMA Stop: 07/10/20 19:59 Last Infusion: 07/03/20 21:07 Dose: 0 mls/hr Documented by: [id number] Admin: 07/03/20 19:41 Dose: 200 mls/hr Documented by: [id number] Insulin Aspart (Insulin Aspart 100 Units/Ml 3 Ml Pen) 0 units SC ACHS PADMA Stop: 08/02/20 11:29 Last Admin: 07/03/20 21:12 Dose: 12 units Documented by: [id number] Cosigned by: [id number] Admin: 07/03/20 17:47 Dose: 8 units Documented by: [id number] Cosigned by: [id number] Admin: 07/03/20 12:31 Dose: 10 units Documented by: [id number] Cosigned by: [id number] Insulin Glargine (Insulin Glargine Solostar 100 Units/Ml 3 Ml Pen) 15 units SQ HS PADMA Stop: 08/02/20 20:59 Last Admin: 07/03/20 21:12 Dose: 15 units Documented by: [id number] Cosigned by: [id number] Multivitamins (Multivitamin Tab) 1 tab PO QAM PADMA Stop: 08/02/20 10:59 Last Admin: 07/03/20 11:44 Dose: 1 tab Documented by: [id number] Discontinued Medications Sodium Chloride (Nss 1000ml) 1,000 mls @ 999 mls/hr IV .Q1H1M PADMA Stop: 07/03/20 07:00 Last Infusion: 07/03/20 08:49 Dose: 0 mls/hr Documented by: [id number] Admin: 07/03/20 08:00 Dose: 999 mls/hr Documented by: [id number] Ceftriaxone Sodium (Rocephin) 2,000 mg in 70 mls @ 140 mls/hr IV NOW STA Stop: 07/03/20 06:37 Last Infusion: 07/03/20 09:02 Dose: 0 mls/hr Documented by: [id number] Admin: 07/03/20 08:24 Dose: 140 mls/hr Documented by: [id number] Sodium Chloride (Nss 1000ml) 1,000 mls @ 999 mls/hr IV .Q1H1M ONE Stop: 07/03/20 08:07 Last Infusion: 07/03/20 10:22 Dose: 0 mls/hr Documented by: [id number] Admin: 07/03/20 09:02 Dose: 999 mls/hr Documented by: [id number] Vancomycin HCl 2,250 mg/ (Sodium Chloride) 545 mls @ 125 mls/hr IV NOW ONE Stop: 07/03/20 15:06 Last Infusion: 07/03/20 16:07 Dose: 0 mls/hr Documented by: [id number] Infusion: 07/03/20 13:15 Dose: 125 mls/hr Documented by: [id number] Infusion: 07/03/20 12:29 Dose: 0 mls/hr Documented by: [id number] Admin: 07/03/20 11:22 Dose: 200 mls/hr Documented by: [id number] Insulin Human Regular (Novolin-R Insulin Per Unit Charge) 6 units IV NOW STA Stop: 07/03/20 07:08 Last Admin: 07/03/20 07:33 Dose: 6 units Documented by: [id number] Cosigned by: [id number] Ioversol (Ioversol 100ml) 94 ml IV ONCE ONE Stop: 07/03/20 06:50 Last Admin: 07/03/20 06:49 Dose: 94 ml Documented by: [id number] Potassium Chloride (Potassium Chloride Crtab 20 Meq Tabcr) 40 meq PO NOW STA Stop: 07/03/20 07:08 Last Admin: 07/03/20 07:30 Dose: 40 meq Documented by: [id number] Trimethoprim/Sulfamethoxazole (Sulfamethoxazole/Trimethoprim Ds 800/160mg Tab) 1 tab PO NOW ONE Stop: 07/03/20 06:09 Last Admin: 07/03/20 07:30 Dose: 1 tab Documented by: [id number] Medical Decision Making Differential Diagnosis + abscess of skin or subcutaneous tissue, + allergic reaction to drug, + cellulitis, + insect bites, + contact dermatitis, + necrotizing fasciitis, + foreign body, + dermatitis and + drug eruption Medical Records Attestation: I reviewed the patient's medical records. Home Medications Current Medication List: was personally reviewed by me Laboratory Data Attestation: I reviewed the patient's lab results. No leukocytosis. Hemoglobin and hematocrit are mildly elevated. Platelet count 232. Coags normal. Potassium slightly low at 3.4. Sodium 133. Renal function without significant abnormality. Alkaline phosphatase elevated. Lactic acid 1.1. Urinalysis positive for 4+ ketones, 3+ glucose, but no clear evidence of infection.. Blood glucose elevated at 399. Result diagrams: 07/03/20 06:15 07/03/20 06:15 Lab Results 07/03/20 07/03/20 07/03/20 Range/Units 06:15 06:15 06:15 WBC 8.45 (4.8-10.8) K/uL RBC 5.42 H (4.2-5.4) M/uL Hgb 17.2 H (12.0-16.0) g/dL POC Hgb (12.0-16.0) g/dl Hct 48.4 H (37-47) % POC Hct (37-47) % MCV 89.3 (80-100) fL MCH 31.7 (25-34) pg MCHC 35.5 (32-36) g/dL RDW Std Deviation 42.1 (36.4-46.3) fL RDW Coeff of Rishi 13.0 (11.5-14.5) % Plt Count 232 (130-400) K/uL MPV 11.2 H (7.4-10.4) fL Immature Gran % (Auto) 0.7 % Neut % (Auto) 43.7 % Lymph % (Auto) 47.0 % [place] % (Auto) 7.3 % Eos % (Auto) 1.1 % Baso % (Auto) 0.2 % Neut # (Auto) 3.69 (1.4-6.5) K/uL Lymph # (Auto) 3.97 H (1.2-3.4) K/uL [place] # (Auto) 0.62 H (0.11-0.59) K/uL Eos # (Auto) 0.09 (0-0.5) K/uL Baso # (Auto) 0.02 (0-0.2) K/uL Immature Gran # (Auto) 0.06 H (0.00-0.02) K/uL PT 9.9 (9.0-12.0) Seconds INR 1.0 (0.9-1.1) APTT 27.9 (21.0-31.0) Seconds PTT Ratio 1.1 POC Sodium (135-144) mmol/L Sodium 133 L (136-145) mmol/L POC Potassium (3.3-5.0) mmol/L Potassium 3.4 L (3.5-5.1) mmol/L POC Chloride (101-112) mmol/L Chloride 106 (98-107) mmol/L Carbon Dioxide 13 L (21-32) mmol/L POC Total CO2 (24-31) mmol/L Anion Gap 14.0 H (3-11) POC Anion Gap (16-25) mmol/L POC BUN (7-18) mg/dl BUN 15 (7-18) mg/dl Creatinine 0.78 (0.6-1.2) mg/dl POC Creatinine (0.6-1.3) mg/dl Est Cr Clr Drug Dosing 123.9 ml/min Est GFR ( Amer) 124.2 Est GFR (Non-Af Amer) 107.2 BUN/Creatinine Ratio 19.5 (10-20) Glucose 399 H* (70-99) mg/dl POC Glucose (70-99) mg/dl POC Glucose (other) (70-99) mg/dl Lactate (0.4-2.0) mmol/L Calcium 9.3 (8.5-10.1) mg/dl POC Ioniz Calcium Ciro (1.12-1.32) mmol/l Magnesium 2.0 (1.8-2.4) mg/dl Total Bilirubin 0.6 (0.2-1) mg/dl AST 6 L (15-37) U/L ALT 16 (12-78) U/L Alkaline Phosphatase 188 H (45-117) U/L Total Protein 7.7 (6.4-8.2) gm/dl Albumin 3.6 (3.4-5.0) gm/dl Globulin 4.1 H (2.5-4.0) gm/dl Albumin/Globulin Ratio 0.9 (0.9-2) Beta-Hydroxybutyric Acd 51.00 H (0.2-2.81) mg/dl Urine Color Urine Appearance (Clear) Urine pH (4.5-7.5) Ur Specific [place] (1.000-1.030) Urine Protein (Negative) Urine Glucose (UA) (Negative) Urine Ketones (Negative) Urine Blood (Negative) Urine Nitrite (Negative) Urine Bilirubin (Negative) Urine Urobilinogen (Negative) Ur Leukocyte Esterase (Negative) Urine WBC (Auto) (0-5) /hpf Urine RBC (Auto) (0-4) /hpf U Hyaline Cast (Auto) (0-5) /lpf U Epithel Cells (Auto) (0-5) /lpf Urine Bacteria (Auto) (Negative) 07/03/20 07/03/20 07/03/20 Range/Units 06:15 06:20 06:22 WBC (4.8-10.8) K/uL RBC (4.2-5.4) M/uL Hgb (12.0-16.0) g/dL POC Hgb 17.7 H (12.0-16.0) g/dl Hct (37-47) % POC Hct 52 H (37-47) % MCV (80-100) fL MCH (25-34) pg MCHC (32-36) g/dL RDW Std Deviation (36.4-46.3) fL RDW Coeff of Rishi (11.5-14.5) % Plt Count (130-400) K/uL MPV (7.4-10.4) fL Immature Gran % (Auto) % Neut % (Auto) % Lymph % (Auto) % [place] % (Auto) % Eos % (Auto) % Baso % (Auto) % Neut # (Auto) (1.4-6.5) K/uL Lymph # (Auto) (1.2-3.4) K/uL [place] # (Auto) (0.11-0.59) K/uL Eos # (Auto) (0-0.5) K/uL Baso # (Auto) (0-0.2) K/uL Immature Gran # (Auto) (0.00-0.02) K/uL PT (9.0-12.0) Seconds INR (0.9-1.1) APTT (21.0-31.0) Seconds PTT Ratio POC Sodium 134 L (135-144) mmol/L Sodium (136-145) mmol/L POC Potassium 3.5 (3.3-5.0) mmol/L Potassium (3.5-5.1) mmol/L POC Chloride 106 (101-112) mmol/L Chloride (98-107) mmol/L Carbon Dioxide (21-32) mmol/L POC Total CO2 13 L (24-31) mmol/L Anion Gap (3-11) POC Anion Gap 20.0 (16-25) mmol/L POC BUN 16 (7-18) mg/dl BUN (7-18) mg/dl Creatinine (0.6-1.2) mg/dl POC Creatinine 0.3 L (0.6-1.3) mg/dl Est Cr Clr Drug Dosing ml/min Est GFR ( Amer) Est GFR (Non-Af Amer) BUN/Creatinine Ratio (10-20) Glucose (70-99) mg/dl POC Glucose 416 H* (70-99) mg/dl POC Glucose (other) 390 H* (70-99) mg/dl Lactate 1.1 (0.4-2.0) mmol/L Calcium (8.5-10.1) mg/dl POC Ioniz Calcium Ciro 1.24 (1.12-1.32) mmol/l Magnesium (1.8-2.4) mg/dl Total Bilirubin (0.2-1) mg/dl AST (15-37) U/L ALT (12-78) U/L Alkaline Phosphatase (45-117) U/L Total Protein (6.4-8.2) gm/dl Albumin (3.4-5.0) gm/dl Globulin (2.5-4.0) gm/dl Albumin/Globulin Ratio (0.9-2) Beta-Hydroxybutyric Acd (0.2-2.81) mg/dl Urine Color Urine Appearance (Clear) Urine pH (4.5-7.5) Ur Specific [place] (1.000-1.030) Urine Protein (Negative) Urine Glucose (UA) (Negative) Urine Ketones (Negative) Urine Blood (Negative) Urine Nitrite (Negative) Urine Bilirubin (Negative) Urine Urobilinogen (Negative) Ur Leukocyte Esterase (Negative) Urine WBC (Auto) (0-5) /hpf Urine RBC (Auto) (0-4) /hpf U Hyaline Cast (Auto) (0-5) /lpf U Epithel Cells (Auto) (0-5) /lpf Urine Bacteria (Auto) (Negative) 07/03/20 07/03/20 Range/Units 06:22 06:35 WBC (4.8-10.8) K/uL RBC (4.2-5.4) M/uL Hgb (12.0-16.0) g/dL POC Hgb (12.0-16.0) g/dl Hct (37-47) % POC Hct (37-47) % MCV (80-100) fL MCH (25-34) pg MCHC (32-36) g/dL RDW Std Deviation (36.4-46.3) fL RDW Coeff of Rishi (11.5-14.5) % Plt Count (130-400) K/uL MPV (7.4-10.4) fL Immature Gran % (Auto) % Neut % (Auto) % Lymph % (Auto) % [place] % (Auto) % Eos % (Auto) % Baso % (Auto) % Neut # (Auto) (1.4-6.5) K/uL Lymph # (Auto) (1.2-3.4) K/uL [place] # (Auto) (0.11-0.59) K/uL Eos # (Auto) (0-0.5) K/uL Baso # (Auto) (0-0.2) K/uL Immature Gran # (Auto) (0.00-0.02) K/uL PT (9.0-12.0) Seconds INR (0.9-1.1) APTT (21.0-31.0) Seconds PTT Ratio POC Sodium (135-144) mmol/L Sodium (136-145) mmol/L POC Potassium (3.3-5.0) mmol/L Potassium (3.5-5.1) mmol/L POC Chloride (101-112) mmol/L Chloride (98-107) mmol/L Carbon Dioxide (21-32) mmol/L POC Total CO2 (24-31) mmol/L Anion Gap (3-11) POC Anion Gap (16-25) mmol/L POC BUN (7-18) mg/dl BUN (7-18) mg/dl Creatinine (0.6-1.2) mg/dl POC Creatinine (0.6-1.3) mg/dl Est Cr Clr Drug Dosing ml/min Est GFR ( Amer) Est GFR (Non-Af Amer) BUN/Creatinine Ratio (10-20) Glucose (70-99) mg/dl POC Glucose 444 H* (70-99) mg/dl POC Glucose (other) (70-99) mg/dl Lactate (0.4-2.0) mmol/L Calcium (8.5-10.1) mg/dl POC Ioniz Calcium Ciro (1.12-1.32) mmol/l Magnesium (1.8-2.4) mg/dl Total Bilirubin (0.2-1) mg/dl AST (15-37) U/L ALT (12-78) U/L Alkaline Phosphatase (45-117) U/L Total Protein (6.4-8.2) gm/dl Albumin (3.4-5.0) gm/dl Globulin (2.5-4.0) gm/dl Albumin/Globulin Ratio (0.9-2) Beta-Hydroxybutyric Acd (0.2-2.81) mg/dl Urine Color Yellow Urine Appearance Clear (Clear) Urine pH 6.0 (4.5-7.5) Ur Specific [place] 1.041 H (1.000-1.030) Urine Protein Trace H (Negative) Urine Glucose (UA) 3+ H (Negative) Urine Ketones 4+ H (Negative) Urine Blood Negative (Negative) Urine Nitrite Negative (Negative) Urine Bilirubin Negative (Negative) Urine Urobilinogen Negative (Negative) Ur Leukocyte Esterase Negative (Negative) Urine WBC (Auto) 1-5 (0-5) /hpf Urine RBC (Auto) 0-4 (0-4) /hpf U Hyaline Cast (Auto) 1-5 (0-5) /lpf U Epithel Cells (Auto) >30 H (0-5) /lpf Urine Bacteria (Auto) Negative (Negative) Imaging Data Radiologist's Impression: CT pelvis w/IV con only CLINICAL HISTORY: Right groin abscess. COMPARISON STUDY: CT scan dated 09/06/2018 FINDINGS: The patient was scanned in a dynamic helical fashion during intravenous administration of 94 cc of Optiray 320. The appendix appears normal. There is no evidence of acute diverticulitis. No pathologic adnexal masses are visualized. There is an involuting right ovarian follicle. There is trace free fluid in the pelvis. There is no pathologic adenopathy. In the right inguinal region, there is skin thickening with infiltration of the underlying fat. There are no fluid collections to indicate a drainable abscess. The findings are consistent with a cutaneous infection/focal cellulitis. Clinical correlation and follow-up is advocated. There is a smaller second focus of mild infiltration of subcutaneous fat within the right lower paramedian abdominal wall. No destructive skeletal lesions are visualized. IMPRESSION: 1. In the right inguinal region there is skin thickening with infiltration of the underlying fat. This is consistent with a cutaneous infection/focal cellulitis 2. No evidence of abscess 3. No evidence of pathologic adenopathy 4. Trace free pelvic fluid likely physiologic 5. Normal appendix ACT 112: Negative or not required by law. Electronically signed by: Stone Trevino M.D. 07/03/2020 7:13 AM ECG Data Attestation: I personally reviewed and interpreted this ECG as follows: Indication: tachycardia Rate (beats per minute): 112 Rhythm: sinus tachycardia Findings: no ST depression, no T-wave inversion, no ST elevation, no acute ischemic change and no ectopy Comparison ECG Date: from (10/30/2019) Change: no significant change Blood Pressure Blood Pressure Findings: Elevated blood pressure Blood Pressure Disposition: elevated BP felt to be situational MDM Narrative This 24-year-old female patient presents to the emergency department today for evaluation of hyperglycemia and infection of the mons pubis. The patient is concerned for an abscess and states she has been admitted for the same. Upon review of the patient's records, she did have this same abscess incised and drained in February of last year. She then ultimately got admitted for hyperglycemia. She states since that time, the wound has opened and oozed intermittently but has not improved. Patient is afebrile but is tachycardic with a heart rate in the 120s upon arrival. Work-up is concerning for hyperglycemia, elevated anion gap, CO2 of 13, mild hypokalemia with potassium of 3.4. The patient does have 4+ ketonuria. She was hydrated in the emergency department and started on IV Rocephin and Bactrim. She was given insulin and potassium while in the department. CT imaging consistent with more of a cellulitis and no clear fluid collection to indicate an abscess. Recommended admission for management of the infection and hyperglycemia. The patient was agreeable. Please see hospitalist dictation regarding ongoing management and care of this patient. The chart was completed utilizing [employer] Speech voice recognition software. Grammatical errors, random word insertions, pronoun errors, and incomplete sentences are an occasional consequence of this system due to software limitations, ambient noise, and hardware issues. Any formal questions or concerns about the content, text, or information contained within the body of this dictation should be directly addressed to the provider for clarification. Impression & Plan Cellulitis and abscess of other specified site, Hyperglycemia, Tachycardia Discharge Plan Visit Data Chief Complaint: Skin Problem Stated Complaint: SKIN INFECTION,DIZZY,CAN'T EAT,HIGH BLOOD SUGAR ED Provider: Kirstin Obrien ED Midlevel Provider: Re Pierce Discharge Problem: Cellulitis and abscess of other specified site, Hyperglycemia, Tachycardia Patient Disposition: Admitted As Inpatient Condition: Good Discharge Instructions Interventions: ED Discharge Assessment Last Done: 07/03/20 10:08
[2020-07-03] MEDS ORDERED: SULFAMETHOXAZOLE/TRIMETHOPRIM DS 800/160MG TAB PO ONE (06:08)
[2020-07-03] MEDS ORDERED: cefTRIAXone SODIUM 2,000 MG/70 ML BAG IV STA (06:08)
[2020-07-03 06:32] LABS: Basophils # (auto) 0.02 K/uL (0-0.2); Basophils % (auto) 0.2 %; Eosinophils # (auto) 0.09 K/uL (0-0.5); Eosinophils % (auto) 1.1 %; Hematocrit (blood only) 48.4 % (37-47); Hemoglobin 17.2 g/dL (12.0-16.0); Immature Granulocytes # (auto) 0.06 K/uL (0.00-0.02); Immature Granulocytes % (auto) 0.7 %; Lymphocytes # (auto) 3.97 K/uL (1.2-3.4); Mean Corpuscular Hemoglobin 31.7 pg (25-34); Mean Corpuscular Hgb Conc 35.5 g/dL (32-36); Mean Corpuscular Volume 89.3 fL (80-100); Mean Platelet Volume 11.2 fL (7.4-10.4); Monocytes # (auto) 0.62 K/uL (0.11-0.59); Monocytes % (auto) 7.3 %; Neutrophils # (auto) 3.69 K/uL (1.4-6.5); Neutrophils % (auto) 43.7 %; Platelet Count 232 K/uL (130-400); RDW Standard Deviation 42.1 fL (36.4-46.3); Red Blood Count 5.42 M/uL (4.2-5.4); White Blood Count 8.45 K/uL (4.8-10.8)
[2020-07-03 06:40] LABS: iSTAT Creatinine 0.3 mg/dl (0.6-1.3); iSTAT Hemoglobin 17.7 g/dl (12.0-16.0); iSTAT Ionized Calcium 1.24 mmol/l (1.12-1.32); iSTAT Potassium 3.5 mmol/L (3.3-5.0)
[2020-07-03 06:43] LABS: Partial Thromboplastin Ratio 1.1; Partial Thromboplastin Time 27.9 Seconds (21.0-31.0); Prothrombin Time 9.9 Seconds (9.0-12.0)
[2020-07-03 06:48] LABS: Appearance Urine Clear (Clear); Bacteria Urine Automated Negative (Negative); Bilirubin Urine Negative (Negative); Blood Urine Negative (Negative); Color Urine Yellow; Epithelial Cell Urine Auto >30 /lpf (0-5); Glucose Urine UA 3+ (Negative); Ketones Urine 4+ (Negative); Leukocyte Esterase Urine Negative (Negative); Nitrite Urine Negative (Negative); Protein Urine Trace (Negative); RBC Urine Automated 0-4 /hpf (0-4); Specific Gravity Urine 1.041 (1.000-1.030); Urobilinogen Urine Negative (Negative)
[2020-07-03] MEDS ORDERED: OPTIRAY 320 100ml IV ONE (06:49)
[2020-07-03 06:53] LABS: Globulin 4.1 gm/dl (2.5-4.0)
[2020-07-03 06:54] LABS: Albumin Globulin Ratio 0.9 (0.9-2); Albumin Level 3.6 gm/dl (3.4-5.0); BUN Creatinine Ratio 19.5 (10-20); Bilirubin,Total 0.6 mg/dl (0.2-1); Calcium 9.3 mg/dl (8.5-10.1); Creatinine Clr Calc Pharmacy 123.9 ml/min; Est GFR (African American) 124.2; Est GFR (Non-African American) 107.2; Potassium 3.4 mmol/L (3.5-5.1); Total Protein 7.7 gm/dl (6.4-8.2)
[2020-07-03] MEDS ORDERED: POTASSIUM CHLORIDE CRTAB 20 MEQ TABCR PO STA (07:07)
[2020-07-03] MEDS ORDERED: SODIUM CHLORIDE 0.9% 1000ML 1,000 ML IV ONE (07:07)
[2020-07-03] MEDS ORDERED: NovoLIN-R INSULIN PER UNIT CHARGE IV STA (07:07)
--- NOTE | 2020-07-03 07:15 | CT Scan Report ---
CT pelvis w/IV con only CLINICAL HISTORY: Right groin abscess. COMPARISON STUDY: CT scan dated 09/06/2018 FINDINGS: The patient was scanned in a dynamic helical fashion during intravenous administration of 94 cc of Op tiray 320. The appendix appears normal. There is no evidence of acute diverticulitis. No pathologic adnexal masses are visualized. There is an involuting right ovarian follicle. There is trace free fluid in the pelvis. There is no pathologic adenopathy. In the right inguinal region, there is skin thickening with infiltration of the underlying fat. There are no fluid collections to indicate a drainable abscess. The findings are consistent with a cutaneo us infection/focal cellulitis. Clinical correlation and follow-up is advocated. There is a smaller se cond focus of mild infiltration of subcutaneous fat within the right lower paramedian abdominal wall. No destructive skeletal lesions are visualized. IMPRESSION: 1. In the right inguinal region there is skin thickening with infiltration of the underlying fat. Thi s is consistent with a cutaneous infection/focal cellulitis 2. No evidence of abscess 3. No evidence of pathologic adenopathy 4. Trace free pelvic fluid likely physiologic 5. Normal appendix ACT 112: Negative or not required by law. Electronically signed by: Stone Trevino M.D. 07/03/2020 7:13 AM
--- NOTE | 2020-07-03 08:14 | History & Physical Report ---
Date of Service July 03, 2020 Assessment & Plan (1) Cellulitis: Small boil on right lower quadrant with some mild surrounding cellulitis. Pelvic CT did not show any abscess. - This sounds consistent with MRSA boils as she has had multiples over the last few months. - Initiate vancomycin while inpatient - Consider MRSA decolonization on discharge. (2) Hyperglycemia: Likely from sickness, either cellulitis vs. viral syndrome as she has had loss of appetite and nausea the last 2 days. - Covid swab pending - Treat cellulitis as above - Glycemic counselor consulted (3) Diabetes: Prior A1c was 8.7% in 02/2020. - Hold metformin after IV contrast - Continue long-acting insulin at 15 units HS - Sliding scale insulin (4) Anxiety: Not on any home meds for this. - Monitor (5) DVT prophylaxis: SCDs - Low DVT risk per admission calculator History of Present Illness Primary Care Provider: Melanie Boss, DO 24yo F w/ hx of DMII who presents with cellulitis of the right lower abdomen and hyperglycemia. The patient reports that she has been doing well overall. She is working hard to be compliant with her insulin regimen. She works for [employer] and reports that she misses her long-acting insulin once or twice a week due to work and having young children at home. However, by and large, she is doing better on her blood sugars and reports that her usual blood sugar is < 150. However, for the last 2 days, she has felt nauseated and had a low appetite. She has not had any overt vomiting. She had some subjective fevers as well. Today, she woke up and checked her blood sugar. Her sugar was ~400, and she presented to the ED. She has had several boils/abscesses over the last few months and been on several courses of antibiotics through her PCP. She is not sure what antibiotics she was on previously. Allergies Allergy/AdvReac Type Severity Reaction Status Date / Time fluoxetine AdvReac Intermediate Bad Verified 07/03/20 06:01 thoughts diphenhydramine AdvReac Mild jittery Verified 07/03/20 06:01 [From Unisom (diphenhydramine)] Home Medications Medication Instructions Recorded Confirmed Type acetone (urine) test #50 ea 11/06/19 05/09/20 Rx multivitamin 1 tab PO QAM 02/23/20 07/03/20 History blood sugar diagnostic #200 ea 02/26/20 05/09/20 Rx insulin glargine 100 unit/mL (3 15 unit SUBCUT DAILY 90 Days #15 ml 02/26/20 07/03/20 Rx mL) subcutaneous pen lancets 33 gauge #200 ea 02/26/20 05/09/20 Rx pen needle, diabetic 32 gauge x #400 ea 02/26/20 05/09/20 Rx 5/32" insulin aspart U-100 100 unit/mL 5 unit SUBCUT TID #15 ml 03/22/20 07/03/20 Rx (3 mL) subcutaneous pen famotidine 20 mg PO BID 07/03/20 07/03/20 History metformin 500 mg PO BID 07/03/20 07/03/20 History Past Med/Surg History Medical History Abnormal thyroid function test Abscess of skin Anxiety Cellulitis Depression Diabetes Fatty liver Gastroesophageal reflux disease Hyperglycemia due to diabetes mellitus Mild preeclampsia Morbid obesity with BMI of 50.0-59.9, adult Pneumonia Restless leg syndrome Seizures pt states she had a few as a child, never diagnosed with epilepsy; last was over 10yrs ago--no neurologist, no meds Surgical History History of tonsillectomy and adenoidectomy [place] teeth extracted Family History Grandmother (Maternal) Family history of diabetes mellitus Aunt Family history of diabetes mellitus Other No family history of adverse response to anesthesia Denies family history of Ovarian cancer Breast cancer Colorectal cancer Social History Smoking Status: Never smoker Tobacco Type: E-cigarettes / Vaping Second Hand Exposure: Yes (parents smoked); Hx Alcohol Use: Yes Alcohol type: other Hx Substance Use: No Preferred Language: [place] Citizen Communication Ability: Effective Molder Wax Ball Required: No Beliefs That Will Affect Care: None marital status: Single Current Living Situation: Significant Other Current Living Situation Comment: and son current occupational status: student Feels Safe at Home: Yes Assistive Devices: Glasses Review of Systems Review of Systems: All systems reviewed & are unremarkable except as noted in HPI & below Physical Exam Constitutional: WD/WN, vitals as above Eyes: EOM intact bilaterally; no conjunctival abnormality ENMT: external ear and nose normal, oropharynx normal Neck: trachea midline, no thyromegaly normal visual inspection Respiratory: normal respiratory effort, lungs clear to auscultation no respiratory distress Cardiovascular: RRR, no murmur, no edema Gastrointestinal (Abdomen): Inspection/Auscultation: abdomen normal to inspection; abdomen not distended Musculoskeletal: no cyanosis or clubbing, extremities motor strength 5/5 Skin: no rashes, warm and dry Neurologic: moves all extremities and awake Psychiatric: Orientation: alert, oriented to person and cooperative Results & Data Results & Data ([facility]) Vital Signs (Past 12 Hours) Vital Signs Temp Pulse Resp BP Pulse Ox 07/03/20 05:40 36.4 C L 121 H 20 148/97 H 96 Code Status & VTE Plan VTE Prophylaxis Plan VTE Prophylaxis will be ordered: Yes PG Care Time/CCT Total # of Minutes Spent Total Time Spent with Patient: Total time spent is greater than 50% in coordination of care (as documented) at patient's floor/unit and/or counseling patient: Coding Level of Care Code 67206 OBS Care - Level 3 Diagnoses Cellulitis L03.90 Hyperglycemia R73.9 Diabetes E11.9 Anxiety F41.9 DVT prophylaxis Z29.9
[2020-07-03] MEDS ORDERED: VANCOMYCIN CONSULT ACTIVE PRN (10:22)
[2020-07-03] MEDS ORDERED: GLUCOSE 10 TABS/TUBE PO PRN (10:22)
[2020-07-03] MEDS ORDERED: CARBOHYDRATES FOR HYPOGLYCEMIA PO PRN (10:22)
[2020-07-03] MEDS ORDERED: DEXTROSE 50% 50 ML SYRINGE IV PRN (10:22)
[2020-07-03] MEDS ORDERED: GLUCAGON FOR INJ 1 MG VIAL SQ PRN (10:22)
[2020-07-03] MEDS ORDERED: GLUCOSE 40% GEL 15 GM TUBE PO PRN (10:22)
[2020-07-03] MEDS ORDERED: ONDANSETRON INJ 2 MG/ML 2 ML VIAL IV PRN (10:22)
[2020-07-03] MEDS ORDERED: VANCOMYCIN HCL 2,250 MG in SODIUM CHLORIDE 0.9% 500 ML IV ONE (10:45)
[2020-07-03] MEDS: MULTIVITAMIN TAB PO SCH (11:44)
[2020-07-03] MEDS: FAMOTIDINE 20 MG TAB PO SCH ×2 (11:44→20:22)
[2020-07-03] MEDS: INSULIN ASPART 100 UNITS/ML 3 ML PEN SC SCH ×3 (12:31→21:12)
--- NOTE | 2020-07-03 13:29 | Pharmacy Report ---
Pharmacy Abx Dose Short Note - Date of Service July 03, 2020 - Assessment & Plan Assessment 24 year old admitted with cellulitis/small boil on right lower quandrant. Pelvic CT negative for abscess. Pharmacy consulted for vancomycin dosing. Blood cultures x 2 are pending Plan Vancomycin * Will dose with vancomycin 2250 mg x 1 (~22 mg/kg/dose) as loading dose * Patient not candidate for vancomycin AUC dosing d/t weight >100 kg - will utilize estimated kinetics to calculate dosing * Will start vancomycin 1250 mg (~12 mg/kg) iv q 8 hr to achieve estimated trough ~15 mcg/ml for SSTI * Estimated kinetics: t1/2~6.5 hrs, ke~0.10, CrCl >100 * Plan to collect trough prior to the 1200 dose on 07/04 to ensure therapeutic and patient not accumulating too quickly since BMI >35 kg/m2 Pharmacy will continue to follow and will adjust dose/frequency as necessary. Thank you.
[2020-07-03] MEDS: ACETAMINOPHEN 325 MG TAB PO PRN (15:46)
[2020-07-03] MEDS: VANCOMYCIN HCL 1,250 MG in SODIUM CHLORIDE 0.9% 250 ML IV SCH (19:41)
[2020-07-03] MEDS ORDERED: INSULIN GLARGINE SOLOSTAR 100 UNITS/ML 3 ML PEN SQ SCH (21:00)
[2020-07-04] MEDS: VANCOMYCIN HCL 1,250 MG in SODIUM CHLORIDE 0.9% 250 ML IV SCH ×3 (04:11→19:51)
[2020-07-04] MEDS: ACETAMINOPHEN 325 MG TAB PO PRN ×2 (04:24→12:58)
--- NOTE | 2020-07-04 05:45 | Electrocardiogram Report ---
Test Reason : Blood Pressure : / mmHG Vent. Rate : 112 BPM Atrial Rate : 112 BPM P-R Int : 182 ms QRS Dur : 078 ms QT Int : 330 ms P-R-T Axes : 044 -04 029 degrees QTc Int : 450 ms Sinus tachycardia Low voltage QRS Borderline ECG When compared with ECG of 30-OCT-2019 12:56, No significant change was found Confirmed by Sukhdev Mcclure ([id number]) on 07/04/2020 5:44:44 AM Referred By: REFERRED SELF Confirmed By:Sukhdev Mcclure
[2020-07-04 07:17] LABS: BUN Creatinine Ratio 13.6 (10-20); Blood Urea Nitrogen 7 mg/dl (7-18); Calcium 7.9 mg/dl (8.5-10.1); Carbon Dioxide 13 mmol/L (21-32); Chloride 111 mmol/L (98-107); Creatinine Clr Calc Pharmacy 189.4 ml/min; Est GFR (African American) > 150.0; Est GFR (Non-African American) 134.7; Glucose 254 mg/dl (70-99); Magnesium 1.8 mg/dl (1.8-2.4); Potassium 3.7 mmol/L (3.5-5.1); Sodium 137 mmol/L (136-145)
[2020-07-04 08:11] LABS: Hematocrit (blood only) 43.6 % (37-47); Hemoglobin 15.7 g/dL (12.0-16.0); Mean Platelet Volume 11.3 fL (7.4-10.4); Platelet Count 202 K/uL (130-400); RDW Coefficient of Variation 13.1 % (11.5-14.5); RDW Standard Deviation 42.1 fL (36.4-46.3)
[2020-07-04] MEDS ORDERED: PHARMACY GLYCEMIC MGMT CONSULT PRN (08:31)
[2020-07-04] MEDS ORDERED: INSULIN GLARGINE SOLOSTAR 100 UNITS/ML 3 ML PEN SQ SCH (09:00)
[2020-07-04] MEDS: INSULIN ASPART 100 UNITS/ML 3 ML PEN SC SCH ×4 (09:10→20:40)
[2020-07-04] MEDS: FAMOTIDINE 20 MG TAB PO SCH ×2 (09:12→20:21)
[2020-07-04] MEDS: MULTIVITAMIN TAB PO SCH (09:12)
[2020-07-04 09:54] LABS: Estimated Average Glucose 312 mg/dl; Hemoglobin A1C 12.5 % (4.5-5.6)
[2020-07-04] MEDS ORDERED: VANCOMYCIN TROUGH ONE (11:30)
--- NOTE | 2020-07-04 12:49 | Pharmacy Report ---
Pharmacy Abx Dose Short Note - Date of Service July 04, 2020 - Assessment & Plan Assessment 24 year old F receiving Vancomycin for treatment of cellulitis Day # 2 of antimicrobial therapy. Plan Vancomycin * Trough level of 11.4 mcg/mL is slightly subtherapeutic however, will continue current dosing because likely vancomycin accumulation likely once steady state is reached based on obesity (BMI >35) * Continue dose of 1250 mg IV every 8 hours and re-check a trough in 24hrs * Goal trough level for SST : 10 to 20 mcg/mL based on c/s Pharmacy will continue to follow and will adjust dose/frequency as necessary. Thank you.
--- NOTE | 2020-07-04 13:41 | Pharmacy Report ---
Pharmacy Glycemic Short Note 2 - Date of Service July 04, 2020 - Glycemic Short BSG Results (Last 24 hours): 07/03/20 07/03/20 07/04/20 17:06 20:46 06:32 Glucose 254 H POC Glucose 213 H 257 H 07/04/20 07/04/20 07:57 12:01 Glucose POC Glucose 246 H 248 H OUTPATIENT ANTIDIABETIC REGIMEN: * Lantus 15 units SQ daily * Metformin 500mg PO BIDM * A1c = 8.7% on 02/23/20 * A1c up to 12.5% 07/04/20 ASSESSMENT: * 24yo T1 vs T2 DM female with uncontrolled BSGs. Pt follows with [facility] Endocrinology. Pt has a history of GDM in 2019 (diet controlled) and has T1DM in her family. Pt was on Lantus 30 units daily back in October 2019; dose changed to 15 units in 02/2020. * Pt has been received Lantus 15 units SQ HS last night - BSGs have not gone below 213 mg/dl. * Pt tolerating PO well per CHO counts. * Pt received IV contrast 07/03 - will NOT resume metformin until 07/05 AM at a minimum. * Will double Lantus dose today (pt has taken 30 units in the past) and set a scale for dosing this evening. A1c up 4% since February likely more insulin is needed at discharge. Will most likely need to maximize metformin dosing and add prandial insulin. PLAN FOR INPATIENT GLYCEMIC CONTROL: * Hold outpatient oral diabetes medications * Basal insulin: increase dosing * Lantus 30 units SQ x 1 dose this AM then dosing BID per BSG scale * BSG < 140 mg/dl --> 10 units * BSG 140-180 mg/dl --> 20 units * BSG > 180 mg/dl --> 30 units * Bolus insulin: tighten parameters * NovoLog per scale ACHS or Q6hrs while NPO * Goal Range: Low 100 mg/dL - High 140 mg/dL * Correction Factor: 15 mg/dL/unit * Nutritional / Prandial insulin per carb ratio of 1 unit per 5 grams CHO consumed PLAN FOR DISCHARGE: * A1c = 12.5 % on 07/04/20 * Goal A1c = <7 % based on age and comorbidities * A1c is greater than or equal to 10% --> consider triple therapy with metformin + basal insulin + (GLP1-RA OR prandial insulin). May need to continue additional antidiabetic agent based on patient specific factors (efficacy, hypo risk, weight gain/loss, side effects, cost) * Recommend maximizing metformin dosing. Typically the XR formulation of metformin is better tolerated than the immediate release formulation. Continue to titrate metformin dosing upwards as recommended. Dosage increases should be made in increments of 500 mg weekly, up to 2,000 mg/day PO, given in divided doses. Doses above 2000 mg/day may be better tolerated if divided and given 3 times per day with meals. Max: 2,550 mg/day PO, in divided doses * B12 supplementation may be necessary with custodial metformin * Depending on results of immunology Type 1 DM labs may consider dc'ing metformin. Will leave this up to [facility] endo on whether they want to continue this for weight loss etc * Basal insulin: Glargine dosing TBD * GPL1RA: This will be based off of insurance coverage and patient preference o f weekly vs daily injection. Will defer to [facility] endo to initiate this if indicated- need to wait for immunology labs to result before initiating. * Prandial insulin: Use if GLP1 not indicated (d/t + T1DM) Novolog/Humalog/Regular etc insulin with meals/with the largest meal of the day- dosing and frequency TBD based off of inpatient data * Correctional insulin per scale given in addition to prandial insulin above (TBD)
--- NOTE | 2020-07-04 14:42 | Hospitalist Progress Note ---
Date of Service July 04, 2020 Assessment & Plan (1) Cellulitis: Small boil on right lower quadrant with some mild surrounding cellulitis. Pelvic CT on 07/03 did not show any abscess. - This sounds consistent with MRSA boils as she has had multiples over the last few months. - Initiate vancomycin while inpatient - Consider MRSA decolonization on discharge. (Possible chlorhexidine washes?) - Worsening today. Will get ultrasound as it now feels fluctuant. Will need I&D if abscess forming. (2) Hyperglycemia: Likely from sickness. She has had loss of appetite and nausea the last 2 days. - Treat cellulitis as above - Glycemic counselor consulted - See below for further (3) Diabetes: Prior A1c was 8.7% in 02/2020. - Hold metformin after IV contrast - Continue long-acting insulin at 15 units HS - Sliding scale insulin - On 07/04, I consulted glycemic pharmacist. Despite home long-acting and adequate sliding scale, she continued to have high blood sugars and an anion gap. She is acting a bit more like a Type 1, and outpatient endocrinology had posited DM Type 1.5. Reference labs ordered to further investigate this. Defer ongoing glycemic management to them to better control blood sugars. (4) Anxiety: Not on any home meds for this. - Monitor (5) DVT prophylaxis: SCDs - Low DVT risk per admission calculator Admission and Anticipated Discharge Date Admission Date: July 03, 2020 Subjective Still with increasing pain at the site of the boil. Reports no fevers/chills, chest pain, shortness of breath, abdominal pain, nausea, or vomiting. Physical Exam Constitutional: WD/WN, vitals as above Eyes: EOM intact bilaterally; no conjunctival abnormality ENMT: external ear and nose normal, oropharynx normal Neck: trachea midline, no thyromegaly normal visual inspection Respiratory: normal respiratory effort, lungs clear to auscultation no respiratory distress Cardiovascular: RRR, no murmur, no edema Gastrointestinal (Abdomen): Inspection/Auscultation: abdomen normal to inspection; abdomen not distended Musculoskeletal: no cyanosis or clubbing, extremities motor strength 5/5 Skin: no rashes, warm and dry + lesion (RLQ, worsening) Neurologic: moves all extremities and awake Psychiatric: Orientation: alert, oriented to person and cooperative Results & Data Results & Data ([place]) Vital Signs (Past 12 Hours) Vital Signs Temp Pulse Resp BP Pulse Ox 07/04/20 07:54 36.8 C 90 16 132/94 98 PG Care Time/CCT Total # of Minutes Spent Total Time Spent with Patient: Total time spent is greater than 50% in coordination of care (as documented) at patient's floor/unit and/or counseling patient: Coding Level of Care Code 07373 Subseq Hosp Care Lvl 2 Diagnoses Cellulitis L03.90 Hyperglycemia R73.9 Diabetes E11.9 Anxiety F41.9 DVT prophylaxis Z29.9
--- NOTE | 2020-07-04 16:46 | Ultrasound Report ---
ULTRASOUND RIGHT GROIN NONVASCULAR CLINICAL HISTORY: Cellulitis. Assess for abscess. COMPARISON STUDY: Pelvic CT dated 07/03/2020. FINDINGS: Real-time grayscale and color flow sonography of the subcutaneous soft tissues in the right lower quadrant abdominal wall/groin is performed at the site of interest. There is subcutaneous soft tissue edema and trace fluid identified in the right lower quadrant abdominal wall at this site. A s mall complex focus of phlegmonous change/developing abscess is seen at the dermal surface. This measu res 2.9 x 0.5 x 2.0 cm. No significant internal flow is seen on color imaging. IMPRESSION: There is phlegmonous change/developing abscess identified at the dermal surface in the ri ght lower quadrant soft tissues at the site of interest. Electronically signed by: Jose Isaac M.D. 07/04/2020 4:44 PM
[2020-07-04] MEDS: INSULIN GLARGINE SOLOSTAR 100 UNITS/ML 3 ML PEN SQ SCH (20:41)
[2020-07-05] MEDS: VANCOMYCIN HCL 1,250 MG in SODIUM CHLORIDE 0.9% 250 ML IV SCH ×2 (03:53→12:01)
[2020-07-05] MEDS: ACETAMINOPHEN 325 MG TAB PO PRN ×2 (03:53→14:28)
[2020-07-05 07:26] LABS: Hematocrit (blood only) 43.8 % (37-47); Hemoglobin 15.4 g/dL (12.0-16.0); Mean Corpuscular Hemoglobin 31.1 pg (25-34); Mean Corpuscular Hgb Conc 35.2 g/dL (32-36); Mean Corpuscular Volume 88.5 fL (80-100); Mean Platelet Volume 11.4 fL (7.4-10.4); Platelet Count 208 K/uL (130-400); RDW Coefficient of Variation 13.1 % (11.5-14.5); Red Blood Count 4.95 M/uL (4.2-5.4)
[2020-07-05 08:14] LABS: BUN Creatinine Ratio 16.3 (10-20); Blood Urea Nitrogen 7 mg/dl (7-18); Calcium 8.7 mg/dl (8.5-10.1); Carbon Dioxide 19 mmol/L (21-32); Chloride 107 mmol/L (98-107); Est GFR (African American) > 150.0; Est GFR (Non-African American) 143.4; Glucose 183 mg/dl (70-99); Magnesium 1.8 mg/dl (1.8-2.4); Sodium 136 mmol/L (136-145)
[2020-07-05] MEDS: INSULIN ASPART 100 UNITS/ML 3 ML PEN SC SCH ×4 (08:28→21:32)
[2020-07-05] MEDS: INSULIN GLARGINE SOLOSTAR 100 UNITS/ML 3 ML PEN SQ SCH ×2 (08:29→21:30)
[2020-07-05] MEDS: FAMOTIDINE 20 MG TAB PO SCH ×2 (09:27→21:32)
[2020-07-05] MEDS: MULTIVITAMIN TAB PO SCH (09:27)
[2020-07-05] MEDS ORDERED: POTASSIUM CHLORIDE CRTAB 20 MEQ TABCR PO ONE (11:00)
[2020-07-05] MEDS ORDERED: LIDOCAINE HCL 1% 20 ML VIAL ONE (12:27)
--- NOTE | 2020-07-05 12:54 | Surgery Consultation ---
Date of Consultation July 05, 2020 Assessment & Plan (1) Abscess of right groin: -I&D performed at bedside, see separate note -Can be on PO ABX from surgical standpoint, would give 7 day course -If discharged today, can remove packing at home and use dry gauze PRN for drainage -If still here tomorrow, will remove packing at bedside tomorrow -F/u with surgery 1 week after discharge to ensure adequate wound healing History of Present Illness Reason for Consultation: Right groin abscess Attending Physician: Chinmay Nixon History of Present Illness This is a 24 yo female who was admitted on 07/03/20 with a right groin cellulitis/abscess. She states that she has always had a lump in her right groin, but 3-4 days ago developed sharp pain, without radiation, no worsening factors, no relieving factors at the site of this lump. She also had developed erythema. Initially she didnt have any drainage, but the area did drain a bloody type of fluid last evening. She is felling better after it opened spontaneously. No fevers or chills. Allergies Allergy/AdvReac Type Severity Reaction Status Date / Time fluoxetine AdvReac Intermediate Bad Verified 07/03/20 06:01 thoughts diphenhydramine AdvReac Mild jittery Verified 07/03/20 06:01 [From Unisom (diphenhydramine)] nickel AdvReac Rash Verified 07/03/20 11:22 Home Medications Medication Instructions Recorded Confirmed Type acetone (urine) test #50 ea 11/06/19 05/09/20 Rx multivitamin 1 tab PO QAM 02/23/20 07/03/20 History blood sugar diagnostic #200 ea 02/26/20 05/09/20 Rx insulin glargine 100 unit/mL (3 15 unit SUBCUT DAILY 90 Days #15 ml 02/26/20 07/03/20 Rx mL) subcutaneous pen lancets 33 gauge #200 ea 02/26/20 05/09/20 Rx pen needle, diabetic 32 gauge x #400 ea 02/26/20 05/09/20 Rx 5/32" insulin aspart U-100 100 unit/mL 5 unit SUBCUT TID #15 ml 03/22/20 07/03/20 Rx (3 mL) subcutaneous pen famotidine 20 mg PO BID 07/03/20 07/03/20 History metformin 500 mg PO BID 07/03/20 07/03/20 History Patient History Medical History Abnormal thyroid function test Abscess of skin Anxiety Cellulitis Depression Diabetes Fatty liver Gastroesophageal reflux disease Hyperglycemia due to diabetes mellitus Mild preeclampsia Morbid obesity with BMI of 50.0-59.9, adult Pneumonia Restless leg syndrome Seizures pt states she had a few as a child, never diagnosed with epilepsy; last was over 10yrs ago--no neurologist, no meds Surgical History History of tonsillectomy and adenoidectomy [place] teeth extracted Family History Grandmother (Maternal) Family history of diabetes mellitus Aunt Family history of diabetes mellitus Other No family history of adverse response to anesthesia Denies family history of Ovarian cancer Breast cancer Colorectal cancer Social History Smoking Status: Never smoker Tobacco Type: E-cigarettes / Vaping Second Hand Exposure: No; Hx Alcohol Use: Yes Alcohol type: beer, wine and hard liquor Hx Substance Use: No Preferred Language: [place] Communication Ability: Effective Lathe Tender Required: No Beliefs That Will Affect Care: None marital status: Single Current Living Situation: Family and Significant Other Current Living Situation Comment: lives with boyfriend and son current occupational status: student Feels Safe at Home: Yes Assistive Devices: Glasses Review of Systems Constitutional: no fever and no chills Eyes: no diplopia and no worsening vision Ear, Nose, Mouth, Throat: no ear pain and no hearing loss Respiratory: no cough and no dyspnea Cardiovascular: no chest pain and no dyspnea on exertion Gastrointestinal: + abdominal pain; no nausea and no vomiting Genitourinary: no dysuria Musculoskeletal: no back pain and no neck pain Integumentary: + boil and + erythema; no rash Neurologic: no falls and no headache(s) Psychiatric: no behavioral changes and no depression Hematologic / Lymphatic: no easy bleeding and no easy bruising Physical Exam Constitutional: WD/WN, vitals as above Eyes: PERRL, conjunctivae normal, anicteric sclerae ENMT: external ear and nose normal, oropharynx normal Neck: trachea midline, no thyromegaly Respiratory: normal respiratory effort, lungs clear to auscultation Cardiovascular: RRR, no murmur, no edema Gastrointestinal (Abdomen): normal bowel sounds, soft, nontender, no hepatosplenomegaly Musculoskeletal: no cyanosis or clubbing, extremities motor strength 5/5 Skin: no rashes, warm and dry +right groin abscess 3cm x 2cm with surrounding erythema and induration Neurologic: PERRL, EOMI, accommodation nl, no face palsy, no dysarthria Psychiatric: A+Ox3, euthymic affect Results & Data ([facility]) Vital Signs (Past 12 Hours) Vital Signs Temp Pulse Resp BP Pulse Ox 07/05/20 07:30 37.2 C 88 24 121/85 97 PG Care Time/CCT Total # of Minutes Spent Total Time Spent with Patient: Total time spent is greater than 50% in coordination of care (as documented) at patient's floor/unit and/or counseling patient: Coding Level of Care Code 24413 Initial Inpt Care Lvl 2 Diagnoses Abscess of right groin L02.214
--- NOTE | 2020-07-05 13:02 | Operative Report ---
PG Post Operative Report Pre & Post Diagnosis Right groin abscess I identified the patient and participated in the time-out.: Yes Procedure Incision and drainage of right groin abscess Surgeon Yogesh Mata, DO Sql Developer None Estimated Blood Loss 2 Findings Consistent with Post-Op Diagnosis Minimal amount of purulent discharge upon entrance into abscess cavity Specimens None Anesthesia Type Local Complications none Indications 24 yo female with DMI and right groin abscess Description of Procedure The patient was placed in supine position. The right groin was prepped and draped in the usual sterile fashion. A timeout was called. The procedure was verified as Incision and drainage of right groin abscess. After injection of 1% Lidocaine with epinephrine, an incision was made directly over the most fluctuant area of abscess using a #11 blade scalpel. Purulent fluid was encountered. Wide drainage was ensured. All loculations were broken up bluntly. At this time the incision was irrigated until clear. Hemostasis was achieved using pressure. Hemostasis was complete. The incision was packed wit h a 1/4 inch plain packing. Sterile dressing was applied. The patient tolerated the procedure well. I attest to the content of the Intraoperative Record and any orders documented therein. Any exceptions are noted below.
--- NOTE | 2020-07-05 14:12 | Pharmacy Report ---
Pharmacy Abx Dose Short Note - Date of Service July 05, 2020 - Assessment & Plan Assessment 24 year old F receiving Vancomycin for treatment of Cellulitis. Day #3 of antimicrobial therapy. Pt had been receiving 1250 mg IV q8h. Trough level was 11.6 today and 11.5 yesterday on the same dose. This level is less than desired for this patient with history of recurrent boils and had been on several oral antibiotics in the past. Therefore, will increase Vancomycin dosing. Laboratory Tests 07/04/20 07/05/20 11:32 11:39 Vancomycin Trough 11.5 11.6 Plan Vancomycin * Trough level of 11.6 mcg/mL is subtherapeutic. * Dose increased to 1500 mg IV q8h starting at 1800 today. * Goal trough level for SST: 15 to 20 mcg/mL * Trough ordered for: 07/06/20 before dose @ 1800 Pharmacy will continue to follow and will adjust dose/frequency as necessary. Thank you.
[2020-07-05] MEDS: cefTRIAXone SODIUM 2,000 MG in DEXTROSE 5% 50 ML IV SCH (14:21)
[2020-07-05] MEDS: ADVANCED PROBIOTIC 1250 MG CAPSULE PO SCH (14:21)
--- NOTE | 2020-07-05 15:01 | Pharmacy Report ---
Pharmacy Glycemic Short Note 2 - Date of Service July 05, 2020 - Glycemic Short BSG Results (Last 24 hours): 07/04/20 07/04/20 07/05/20 16:55 20:30 06:36 Glucose 183 H POC Glucose 210 H 202 H 07/05/20 07/05/20 08:18 12:16 Glucose POC Glucose 176 H 212 H OUTPATIENT ANTIDIABETIC REGIMEN: * Lantus 15 units SQ daily * Metformin 500mg PO BIDM * A1c = 8.7% on 02/23/20 * A1c up to 12.5% 07/04/20 ASSESSMENT: 07/05: * Patient received total of 100 units of insulin yesterday: 60 units basal and the rest bolus. * Fasting BSG was 176 mg/dl this AM. Will continue current order for basal insulin dose based on BSGs. * Post-prandial BSGs were elevated above 200 mg/dl yesterday and pre-lunch today. * Novolog CF was therefore tightened this morning. 07/04: * 24yo T1 vs T2 DM female with uncontrolled BSGs. Pt follows with [facility] Endocrinology. Pt has a history of GDM in 2019 (diet controlled) and has T1DM in her family. Pt was on Lantus 30 units daily back in October 2019; dose changed to 15 units in 02/2020. * Pt has been received Lantus 15 units SQ HS last night - BSGs have not gone below 213 mg/dl. * Pt tolerating PO well per CHO counts. * Pt received IV contrast 07/03 - will NOT resume metformin until 07/05 AM at a minimum. * Will double Lantus dose today (pt has taken 30 units in the past) and set a scale for dosing this evening. A1c up 4% since February likely more insulin is needed at discharge. Will most likely need to maximize metformin dosing and add prandial insulin. PLAN FOR INPATIENT GLYCEMIC CONTROL: * Hold outpatient oral diabetes medications * Basal insulin: continued * Lantus SQ dosing BID per BSG scale as follows: * BSG < 140 mg/dl --> 10 units * BSG 140-180 mg/dl --> 20 units * BSG > 180 mg/dl --> 30 units * Bolus insulin: tightened CF * NovoLog per scale ACHS or Q6hrs while NPO * Goal Range: Low 100 mg/dL - High 140 mg/dL * Correction Factor: 10 mg/dL/unit * Nutritional / Prandial insulin per carb ratio of 1 unit per 5 grams CHO consumed PLAN FOR DISCHARGE: * A1c = 12.5 % on 07/04/20 * Goal A1c = <7 % based on age and comorbidities * A1c is greater than or equal to 10% --> consider triple therapy with metformin + basal insulin + (GLP1-RA OR prandial insulin). May need to continue addit ional antidiabetic agent based on patient specific factors (efficacy, hypo risk, weight gain/loss, side effects, cost) * Recommend maximizing metformin dosing. Typically the XR formulation of metformin is better tolerated than the immediate release formulation. Continue to titrate metformin dosing upwards as recommended. Dosage increases should be made in increments of 500 mg weekly, up to 2,000 mg/day PO, given in divided doses. Doses above 2000 mg/day may be better tolerated if divided and given 3 times per day with meals. Max: 2,550 mg/day PO, in divided doses * B12 supplementation may be necessary with mcc metformin * Depending on results of immunology Type 1 DM labs may consider dc'ing metformin. Will leave this up to [facility] endo on whether they want to continue this for weight loss etc * Basal insulin: Glargine dosing TBD * GPL1RA: This will be based off of insurance coverage and patient preference of weekly vs daily injection. Will defer to [facility] endo to initiate this if indicated- need to wait for immunology labs to result before initiating. * Prandial insulin: Use if GLP1 not indicated (d/t + T1DM) Novolog/Humalog/Regular etc insulin with meals/with the largest meal of the day- dosing and frequency TBD based off of inpatient data * Correctional insulin per scale given in addition to prandial insulin above (TBD)
[2020-07-05] MEDS: VANCOMYCIN HCL 1,500 MG in SODIUM CHLORIDE 0.9% 500 ML IV SCH (17:51)
--- NOTE | 2020-07-05 20:42 | Hospitalist Progress Note ---
Date of Service July 05, 2020 Assessment & Plan (1) Abscess of right groin: despite spontaneous draining I believe there is a large amount of purulence in the cavity. I have asked gen surg for consult for consideration of I & D. add rocephin 2gm IV daily to the vanco IV. add lactinex. follow cultures. of note - previous culture from prior abscess with strep. (2) Cellulitis: cellulitis component improved abscess - see above (3) Diabetes: Prior A1c was 8.7% in 02/2020. Hold metformin Pharmacy managing insulins - appreciate their assistance (4) Anxiety: no issues (5) Hypokalemia: replace repeat BMP am mag level wnl (6) DVT prophylaxis: SCDs - Low DVT risk per admission calculator Admission and Anticipated Discharge Date Admission Date: July 05, 2020 Subjective patient states that her right lower abdominal wall abscess started spontaneously draining last evening she still has a lump in that region, however just mild tenderness tolerating abx Review of Systems Constitutional: no fever and no chills Respiratory: no dyspnea Cardiovascular: no chest pain Gastrointestinal: no abdominal pain Endocrine: high sugars Physical Exam Constitutional: well developed, well nourished and + morbidly obese; no acute distress and no altered mental status ENMT: external ear and nose normal, oropharynx normal Respiratory: normal respiratory effort, lungs clear to auscultation Cardiovascular: Rate/Rhythm: regular rate and regular rhythm Heart Sounds: normal S1 and normal S2; no murmur Vessels: posterior tibial pulses present and dorsalis pedis pulses present; no JVD Extremities: no edema Gastrointestinal (Abdomen): normal bowel sounds, soft, nontender, no hepatosplenomegaly Skin: abdominal wall skin abscess, right groin just above inguinal ligament; about 2.5-3 cm in diameter, firm to touch, central draining area but I was not able to express anything; erythema overlying the abscess; minimal surrounding cellulitis Psychiatric: A+Ox3, euthymic affect Results & Data Results & Data ([facility]) Vital Signs (Past 12 Hours) Vital Signs Temp Pulse Resp BP Pulse Ox 07/05/20 15:56 36.9 C 85 18 110/70 97 Laboratory Results Laboratory Results - last 24 hr 07/05/20 07/05/20 07/05/20 06:36 06:36 08:18 WBC 5.50 RBC 4.95 Hgb 15.4 Hct 43.8 MCV 88.5 MCH 31.1 MCHC 35.2 RDW Std Deviation 42.0 RDW Coeff of Rishi 13.1 Plt Count 208 MPV 11.4 H Sodium 136 Potassium 3.0 L D Chloride 107 Carbon Dioxide 19 L Anion Gap 11.0 BUN 7 Creatinine 0.43 L Est Cr Clr Drug Dosing 229.0 Est GFR ( Amer) > 150.0 Est GFR (Non-Af Amer) 143.4 BUN/Creatinine Ratio 16.3 Glucose 183 H POC Glucose 176 H Calcium 8.7 Magnesium 1.8 Vancomycin Trough 07/05/20 07/05/20 07/05/20 11:39 12:16 17:20 WBC RBC Hgb Hct MCV MCH MCHC RDW Std Deviation RDW Coeff of Rishi Plt Count MPV Sodium Potassium Chloride Carbon Dioxide Anion Gap BUN Creatinine Est Cr Clr Drug Dosing Est GFR ( Amer) Est GFR (Non-Af Amer) BUN/Creatinine Ratio Glucose POC Glucose 212 H 168 H Calcium Magnesium Vancomycin Trough 11.6 PG Care Time/CCT Total # of Minutes Spent Total Time Spent with Patient: Total time spent is greater than 50% in coordination of care (as documented) at patient's floor/unit and/or counseling patient: Coding Level of Care Code 53186 Subseq Hosp Care Lvl 2 Diagnoses Abscess of right groin L02.214 Cellulitis L03.311 Site of cellulitis: trunk Site of cellulitis of trunk: abdominal wall Diabetes E11.9 Anxiety F41.9 Hypokalemia E87.6 DVT prophylaxis Z29.9 (1) Cellulitis Site of cellulitis: trunk Site of cellulitis of trunk: abdominal wall Qualified Code(s): L03.311 - Cellulitis of abdominal wall
[2020-07-06] MEDS: VANCOMYCIN HCL 1,500 MG in SODIUM CHLORIDE 0.9% 500 ML IV SCH ×2 (03:01→10:51)
--- NOTE | 2020-07-06 06:34 | Surgery Progress Note ---
Date of Service July 06, 2020 Assessment & Plan (1) Abscess of right groin: Postop day #1 I&D of right groin abscess No organisms seen on operative Gram stain; culture is pending We will likely remove packing later today and simply provide local wound care Patient is receiving antibiotics in the form of Rocephin and vancomycin. This should continue with plans to transition to oral antibiotics based on operative culture results We will defer initiation of DVT prevention to primary service Admission and Anticipated Discharge Date Admission Date: July 05, 2020 Supervising Physician Co-Signing Physician Notes I personally saw and evaluated the patient with Aden Caballero PA-C and agree with the assessment and plan. 24 yo female s/p I&D right groin abscess yesterday -Packing removed -Place dry gauze daily and PRN for drainage -Ok to discharge home from surgical standpoint -Have her follow up in 1 week for wound check -Would give 7 day course of PO ABX Subjective Patient reports an uneventful night. She denies any fevers, shakes, chills. She notes some minor pain at abscess drainage site. Physical Exam Constitutional: well developed, well nourished and + acute distress Musculoskeletal: Abscess drainage site has dressing in place Results & Data ([facility]) Vital Signs (Past 12 Hours) Vital Signs Temp Pulse Resp BP Pulse Ox 07/05/20 23:21 37 C 79 18 117/83 96 PG Care Time/CCT Total # of Minutes Spent Total Time Spent with Patient: Total time spent is greater than 50% in coordination of care (as documented) at patient's floor/unit and/or counseling patient: Coding Level of Care Code 52715 Subseq Hosp Care Lvl 1 Diagnoses Abscess of right groin L02.214
[2020-07-06 07:30] LABS: BUN Creatinine Ratio 14.3 (10-20); Blood Urea Nitrogen 7 mg/dl (7-18); Calcium 8.5 mg/dl (8.5-10.1); Carbon Dioxide 23 mmol/L (21-32); Chloride 110 mmol/L (98-107); Creatinine Clr Calc Pharmacy 205.2 ml/min; Est GFR (African American) > 150.0; Est GFR (Non-African American) 138.3; Glucose 197 mg/dl (70-99); Potassium 3.1 mmol/L (3.5-5.1); Sodium 140 mmol/L (136-145)
[2020-07-06] MEDS: ACETAMINOPHEN 325 MG TAB PO PRN (08:26)
[2020-07-06] MEDS: MULTIVITAMIN TAB PO SCH (08:28)
[2020-07-06] MEDS: ADVANCED PROBIOTIC 1250 MG CAPSULE PO SCH (08:28)
[2020-07-06] MEDS: FAMOTIDINE 20 MG TAB PO SCH (08:28)
[2020-07-06] MEDS: INSULIN GLARGINE SOLOSTAR 100 UNITS/ML 3 ML PEN SQ SCH (08:59)
[2020-07-06] MEDS: INSULIN ASPART 100 UNITS/ML 3 ML PEN SC SCH ×2 (09:00→13:11)
[2020-07-06] MEDS ORDERED: POTASSIUM CHLORIDE CRTAB 20 MEQ TABCR PO STA (09:01)
--- NOTE | 2020-07-06 11:14 | Pharmacy Report ---
Pharmacy Glycemic Short Note 2 - Date of Service July 06, 2020 - Glycemic Short BSG Results (Last 24 hours): 07/05/20 07/05/20 07/05/20 12:16 17:20 20:46 Glucose POC Glucose 212 H 168 H 191 H 07/06/20 07/06/20 07:04 08:23 Glucose 197 H POC Glucose 191 H OUTPATIENT ANTIDIABETIC REGIMEN: * Lantus 15 units SQ daily * Novolog 5 units TID meals + CF 1: 25 for BSG > 150mg/dl * Metformin 500mg PO BIDM * A1c = 8.7% on 02/23/20 * A1c up to 12.5% 07/04/20 * some non-compliance reported ASSESSMENT: 07/06: * Pt has received 91 units of insulin over the past 24hrs * 50 units of basal with Lantus * 41 units of bolus with NovoLog * BSGs 168-212 mg/dl * Tighten CR and increase basal at this time for better glycemic control * updated discharge recommendations below 07/05: * Patient received total of 100 units of insulin yesterday: 60 units basal and the rest bolus. * Fasting BSG was 176 mg/dl this AM. Will continue current order for basal insulin dose based on BSGs. * Post-prandial BSGs were elevated above 200 mg/dl yesterday and pre-lunch today. * Novolog CF was therefore tightened this morning. 07/04: * 24yo T1 vs T2 DM female with uncontrolled BSGs. Pt follows with [facility] Endocrinology. Pt has a history of GDM in 2019 (diet controlled) and has T1DM in her family. Pt was on Lantus 30 units daily back in October 2019; dose changed to 15 units in 02/2020. * Pt has been received Lantus 15 units SQ HS last night - BSGs have not gone below 213 mg/dl. * Pt tolerating PO well per CHO counts. * Pt received IV contrast 07/03 - will NOT resume metformin until 07/05 AM at a minimum. * Will double Lantus dose today (pt has taken 30 units in the past) and set a scale for dosing this evening. A1c up 4% since February likely more insulin is needed at discharge. Will most likely need to maximize metformin dosing and add prandial insulin. PLAN FOR INPATIENT GLYCEMIC CONTROL: * Hold outpatient oral diabetes medications * Basal insulin: increase * Lantus SQ dosing BID per BSG scale as follows: * BSG < 140 mg/dl --> 15 units * BSG 140-180 mg/dl --> 25 units * BSG > 180 mg/dl --> 35 units * Bolus insulin: tightened CR * NovoLog per scale ACHS or Q6hrs while NPO * Goal Range: Low 110 mg/dL - High 140 mg/dL * Correction Factor: 10 mg/dL/unit * Nutritional / Prandial insulin per carb ratio of 1 unit per 3.5 grams CHO consumed PLAN FOR DISCHARGE: * A1c = 12.5 % on 07/04/20 * Goal A1c = <7 % based on age and comorbidities * A1c is greater than or equal to 10% --> consider triple therapy with metformin + basal insulin + (GLP1-RA OR prandial insulin). May need to continue additional antidiabetic agent based on patient specific factors (efficacy, hypo risk, weight gain/loss, side effects, cost) * Recommend maximizing metformin dosing. Typically the XR formulation of metformin is better tolerated than the immediate release formulation. Continue to titrate metformin dosing upwards as recommended. Dosage increases should be made in increments of 500 mg weekly, up to 2,000 mg/day PO, given in divided doses. Doses above 2000 mg/day may be better tolerated if divided and given 3 times per day with meals. 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 Will leave this up to [facility] endo on whether they want to continue this for weight loss etc * Basal insulin: Glargine dosing - recommend 30 units BID * GPL1RA: defer to using prandial insulin since patient using TID at home * Prandial insulin: Novolog- recommend 10 units with meals * Correctional insulin per scale given in addition to prandial insulin above (1 unit for every 10 points above 140mg/dl) * Follow up closely with outpatient provider to titrate insulin dosing
[2020-07-06] MEDS ORDERED: POTASSIUM CHLORIDE CRTAB 20 MEQ TABCR PO ONE (12:00)
--- NOTE | 2020-07-06 12:26 | Discharge Summary ---
Date of Service date of admission - July 03, 2020 date of discharge - July 06, 2020 Admission HPI Per Admitting Provider 24yo F w/ hx of DMII who presents with cellulitis of the right lower abdomen and hyperglycemia. The patient reports that she has been doing well overall. She is working hard to be compliant with her insulin regimen. She works for [employer] and reports that she misses her long-acting insulin once or twice a week due to work and having young children at home. However, by and large, she is doing better on her blood sugars and reports that her usual blood sugar is < 150. However, for the last 2 days, she has felt nauseated and had a low appetite. She has not had any overt vomiting. She had some subjective fevers as well. Today, she woke up and checked her blood sugar. Her sugar was ~400, and she presented to the ED. She has had several boils/abscesses over the last few months and been on several courses of antibiotics through her PCP. She is not sure what antibiotics she was on previously. Principal Diagnosis right lower abdominal abscess s/p I & D Discharge Exam Constitutional well developed, well nourished and + morbidly obese; no acute distress and no altered mental status ENMT external ear and nose normal, oropharynx normal Respiratory normal respiratory effort, lungs clear to auscultation Cardiovascular Rate/Rhythm: regular rate and regular rhythm Heart Sounds: normal S1 and normal S2; no murmur Vessels: posterior tibial pulses present and dorsalis pedis pulses present; no JVD Extremities: no edema Gastrointestinal (Abdomen) normal bowel sounds, soft, nontender, no hepatosplenomegaly Skin right lower abdominal abscess - much improved; erythema, swelling and overall size of abscess is improved/resolving; cellulitis resolved Psychiatric A+Ox3, euthymic affect Discharge Data Allergies Allergy/AdvReac Type Severity Reaction Status Date / Time fluoxetine AdvReac Intermediate Bad Verified 07/03/20 06:01 thoughts diphenhydramine AdvReac Mild jittery Verified 07/03/20 06:01 [From Unisom (diphenhydramine)] nickel AdvReac Rash Verified 07/03/20 11:22 Consultations General Surgery - Yogesh Mata DO Pharmacy Glycemic Team Diabetes Education Procedures Performed I & D of right groin abscess - Yogesh Mata DO Ordered Studies 07/03/20 05:51 CT pelvis w/IV con only Stat IMPRESSION: 1. In the right inguinal region there is skin thickening with infiltration of the underlying fat. This is consistent with a cutaneous infection/focal cellulitis 2. No evidence of abscess 3. No evidence of pathologic adenopathy 4. Trace free pelvic fluid likely physiologic 5. Normal appendix 07/04/20 14:35 US of lower abdominal wall - IMPRESSION: There is phlegmonous change/developing abscess identified at the dermal surface in the right lower quadrant soft tissues at the site of interest. Diabetes Follow up Diabetes Follow-up Needed for HgbA1c >9% Hospital Course (1) Abscess of right groin: Despite spontaneous draining of her right groin abscess she ultimately required I & D by general surgery. She received a combination of IV rocephin and vancomycin while here, and at dis charge was sent home with a 7-day supply of keflex and doxycycline. The cellulitis component of the abscess site was entirely gone by time of discharge. Shortly after discharge her wound culture grew group B strep. She will f/u with general surgery after discharge to recheck the abscess. The patient reported that she has had ongoing issues with recurrent abscesses. I recommended a visit with infectious disease if this trend continues. (2) Cellulitis: cellulitis component of her right groin abscess site was improved/resolved by time of discharge. abscess - see above. (3) Diabetes: Prior A1c was 8.7% in 02/2020. Pharmacy glycemic team provided assistance for her uncontrolled DM. Patient was also seen by the clinical document improvement educator. At discharge the following adjustments were made - 1. novolog was increased to 8 units TID with meals 2. lantus was increased to 30 units daily 3. metformin was continued at 500mg BID (4) Anxiety: no issues while here (5) Hypokalemia: given a 5-day course of oral K supplementation at discharge she will need repeat BMP within a week of discharge Total Time Total Time Spent Total Time Spent (In Minutes): 40 Total Time Includes: Examination of the Patient, Discharge Planning, Medication Reconciliation and Communication With Other Providers Discharge Plan Discharge Items Patient Disposition: Home - Self-Care Reason For Visit: CELLULITIS WITH ABSCESS Discharge Diagnosis: 1. cellulitis (skin infection) with abscess - right lower abdominal wall/groin. IMPROVED. Incision/drainage on 07/05/20. 2. uncontrolled diabetes - slowly improving. 3. low potassium. Condition on Discharge: Good Activity: Resume your previous activity Bathing Comment: ok to shower but no tub baths/swimming in pools Non-emergency contact: Primary Care Provider and Surgeon Call non-emergency contact if: you have any medication questions, your symptoms worsen, you have a fever, your wound has increased redness, your wound has increased drainage and your wound pain has increased Follow-up/Referrals: Yogesh Mata DO [Physician] - (Please call to schedule follow up in clinic within 1 week) Melanie Boss DO [Primary Care Provider] - (see Dr Boss or her partners within 5-7 days; you will need your potassium level rechecked during that visit) Diet: Carb Consistent or DM2 Addtl Attending Provider Instructions: Miss Reynaga, Khari were treated for a skin infection and abscess of the lower abdominal wall with IV antibiotics and incision/drainage. The abscess is doing much better and getting smaller. Thus far the culture from the wound is not growing any specific bacterium but the culture has not finalized. If the culture grows a bacterium that requires a change in antibiotic we will contact you by phone. Recommendations - 1. antibiotics - * cephalexin 500mg THREE TIMES DAILY x 7 days; start this upon return home * doxycycline 100mg TWICE DAILY x 7 days; start this upon return home * the doxycycline can cause heartburn * it can also cause a rash if you get too much sun over the next 7 days; th , cover up and use sunscreen this week if you are outside for long periods of time 2. take probiotics for 10 days to prevent diarrhea 3. take potassium supplement once daily for 5 days; start this today upon return home 4. resume your metformin today 5. increase your lantus to 30 units once daily at bedtime 6. increase your novolog to 8 units with each meal along with your sliding scal e 7. follow-up - see separate section Return to [facility] if - * you have fever over 100 degrees * you have worsening redness, swelling or drainage from the abscess area * you develop severe diarrhea * any other concerns Addtl Security Shift Manager Provider Instructions: Change your wound dressing daily and as needed. Cover with dry 4x4 gauze and adhere with medipore tape. Pending Studies at Discharge: Yes Studies:: blood and wound cultures - but thus far they are not showing any specific bacterium Stand-Alone Forms: My [facility], Smoking Cessation Medications and DC Order Prescriptions: New Advanced Probiotic 625 mg (10 billion cell) Capsule 2 cap PO DAILY 10 Days Qty: 20 RF: 0 potassium chloride 20 mEq tablet extended release 20 meq PO DAILY 5 Days Qty: 5 RF: 0 cephalexin 500 mg capsule 500 mg PO TID 7 Days Qty: 21 RF: 0 doxycycline hyclate 100 mg tablet 100 mg PO BID 7 Days Qty: 14 RF: 0 Continued (DME) Ketone Urine Test Strip See Rx Instructions .ROUTE .MEDSUPPLY Qty: 50 RF: 2 (DME) OneTouch Verio test strips Strip See Rx Instructions .ROUTE .MEDSUPPLY Qty: 200 RF: 5 (DME) lancets [OneTouch Delica Lancets] 33 gauge misc See Rx Instructions [id number] .MEDSUPPLY Qty: 200 RF: 5 (DME) pen needle, diabetic [BD Ultra-Fine Rasheeda Pen Needle] 32 gauge x 5/32" needle See Rx Instructions [id number] .MEDSUPPLY Qty: 400 RF: 3 multivitamin Tablet 1 tab PO QAM RF: 0 famotidine 20 mg tablet 20 mg PO BID RF: 0 metformin 500 mg tablet extended release 24 hr 500 mg PO BID RF: 0 Changed insulin aspart U-100 [Novolog Flexpen U-100 Insulin] 100 unit/mL (3 mL) insulin pen 8 unit subcut TID Qty: 15 RF: 3 Lantus Solostar U-100 Insulin 100 unit/mL (3 mL) insulin pen 30 unit subcut DAILY 90 Days Qty: 15 RF: 3 Discharge Orders: Discharge Order (Routine); Ordered 07/06/20 Ordered By: Chinmay Garza/Other Patient Handouts: Managing Type 2 Diabetes, Diabetes: Sick-Day Plan, Managing Diabetes: The A1C Test, Managing Stress When You Have Diabetes Admission Data Admit Date/Time: 07/03/20 08:02 Attending Provider: Chinmay Nixon Admit Provider: Carlos Awad Primary Care Provider: Melanie Boss Other Providers: Carlos Awda ; Wojciech Alvarado Other Interventions: Discharge Summary Assessment (RN) Last Done: 07/06/20 12:24 Coding Level of Care Code D/C Day Management >30 mins Diagnoses Abscess of right groin L02.214 Cellulitis L03.311 Site of cellulitis: trunk Site of cellulitis of trunk: abdominal wall Diabetes E11.9 Anxiety F41.9 Hypokalemia E87.6
[2020-07-06] MEDS: cefTRIAXone SODIUM 2,000 MG in DEXTROSE 5% 50 ML IV SCH (12:27)
[2020-07-06] MEDS ORDERED: VANCOMYCIN TROUGH ONE (17:30)
[2020-07-10 04:16] LABS: Glutamic Acid Decarboxylase 65 <5 IU/mL (<5)
== END 2020-07-06 14:22 | disposition home or self-care (01) ==
LOC: ED 05:37 → 3W 05:37 → SUATTDRO 08:02 → 3W 10:08

== ENCOUNTER 2021-05-03 16:45 | Inpatient (IN) ==
[2021-05-03] MEDS ORDERED: SODIUM CHLORIDE 0.9% 1000ML 1,000 ML IV STA (16:53)
--- NOTE | 2021-05-03 17:06 | Emergency Department Note ---
Impression & Plan DKA (diabetic ketoacidosis), COVID-19 ADMIT ED Provider Note HPI: The patient is a 25-year-old female with history of poorly controlled type 1 diabetes, on Lantus, who presents the emergency department with a chief complaint of 3 days of generalized weakness, dizziness with ambulation, states that she had a syncopal event earlier today. Patient states that earlier today she was beginning to feel weak, she has a history of vasovagal syncope and states she had a prodrome as if she was going to pass out when she got up to go to the bathroom. She states she then lowered herself to the bathroom floor and laid down. She states she believes she passed out for several seconds and then woke up. She denies any head trauma. Patient states that her boyfriend and her child recently tested positive for COVID-19 and she is concerned she may have COVID-19. She denies any chest pain, states she has had a cough in addition to her generalized weakness and dizziness over the past 3 days. On arrival here to the ED the patient is afebrile, she is tachycardic at 110, she does not exhibit any increased work of breathing, she is anxious appearing and tearful, blood pressure stable. She is otherwise nontoxic-appearing on my initial assessment. ROS: -Neuro: Syncope -General: Generalized weakness -Pulmonary: Cough *10 point review systems was conducted and is otherwise negative unless stated above *Outpatient medications and allergy history reviewed PE: General: Alert, NAD HEENT: Normocephalic, atraumatic Eyes: Extraocular eye movement is intact, no scleral erythema Pulmonary: Clear to auscultation bilaterally, no wheezing Cardio: Tachycardic rate and regular rhythm GI: Abdomen is soft, nontender : No suprapubic tenderness MSK: No evidence of trauma or malformation of the extremities, no edema Skin: No evidence of rash Neuro: Alert, no focal deficits 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 Patient is tachycardic but otherwise hemodynamically stable on arrival. IV was established, IV fluid bolus ordered, lab work initiated. Patient's lab work shows evidence of diabetic ketoacidosis, blood sugar is elevated at approximately 360, there is an anion gap of 15, serum bicarbonate level is r educed to 10. Patient was given IV fluids in the ED, her COVID-19 test did result as positive. Potassium is within normal limits at 4.6. Also evidence of hyponatremia 129 which is likely related to her hyperglycemia. VBG is pending as is urinalysis. Chest x-ray does not show any evidence of pneumonia. EKG does not show any evidence of arrhythmia or ischemic changes. On my reassessment the patient is resting comfortably in bed, she states she is feeling improved following her first bolus of IV fluid. She is otherwise nontoxic-appearing and saturating well on room air. Patient tells me she has been compliant with her Lantus but her insurance will not cover NovoLog and therefore she has been on Lantus alone. Patient will be initiated on an insulin drip for DKA, her case was discussed with the on-call hospitalist, Dr. Hester, patient will be admitted to a telemetry bed for further care. * CRITICAL CARE TIME: 39 minutes -Stabilization of diabetic ketoacidosis requiring initiation of an insulin drip, time spent at the bedside, interpretation of diagnostic studies, discussion with other physicians and arrangement of admission. Diagnosis: 1. Diabetic ketoacidosis 2. COVID-19 infection 3. Syncopal episode Disposition: Admission Gregory Perez DO Emergency Medicine Past Med/Surg History Medical History Abnormal thyroid function test Abscess of skin Cellulitis Cellulitis and abscess of other specified site Depression Fatty liver Gastroesophageal reflux disease Hyperglycemia due to diabetes mellitus Mild preeclampsia Morbid obesity with BMI of 50.0-59.9, adult Pneumonia Restless leg syndrome Seizures Surgical History History of tonsillectomy and adenoidectomy [place] teeth extracted Family History Grandmother (Maternal) Family history of diabetes mellitus Aunt Family history of diabetes mellitus Other No family history of adverse response to anesthesia Denies family history of Ovarian cancer Breast cancer Colorectal cancer Social History Smoking Status: Never smoker Tobacco Type: E-cigarettes / Vaping Second Hand Exposure: No; Hx Alcohol Use: Yes Alcohol type: beer, wine and hard liquor Hx Substance Use: No Preferred Language: Frisian Communication Ability: Effective Manager Quality Required: No Beliefs That Will Affect Care: None marital status: Single Current Living Situation: Family and Significant Other Current Living Situation Comment: lives with boyfriend and son current occupational status: student Feels Safe at Home: Yes Assistive Devices: Glasses Allergies Allergies Allergy/AdvReac Type Severity Reaction Status Date / Time fluoxetine AdvReac Intermediate Bad Verified 05/03/21 17:22 thoughts diphenhydramine AdvReac Mild jittery Verified 05/03/21 17:22 [From Unisom (diphenhydramine)] nickel AdvReac Rash Verified 05/03/21 17:22 Home Meds Home Medications Medication Instructions Recorded Confirmed multivitamin 1 tab PO QAM 02/23/20 05/03/21 benzonatate 100 mg capsule 100 mg PO TID PRN 05/03/21 05/03/21 Previous Rx's Medication Instructions Recorded acetone (urine) test (Ketone Urine #50 ea 11/06/19 Test) blood sugar diagnostic (OneTouch #200 ea 02/26/20 Verio test strips) lancets 33 gauge (OneTouch Delica #200 ea 02/26/20 Lancets) pen needle, diabetic 32 gauge x #400 ea 02/26/20 5/32" (BD Ultra-Fine Rasheeda Pen Needle) insulin glargine 100 unit/mL (3 30 unit SUBCUT DAILY 90 Days #15 ml 07/06/20 mL) subcutaneous pen (Lantus Solostar U-100 Insulin) Results & Data (ED) Vital Signs Vital Signs - 24 hr 05/03/21 16:47 05/03/21 16:58 05/03/21 17:11 Temperature 36.4 C L Temperature Source Temporal Artery Scan Pulse Rate 122 H 115 H Pulse Rate [Left Radial] 110 H Pulse Rhythm Regular Pulse Rhythm [Left Radial] Regular Pulse Strength [Left Radial] Normal Respiratory Rate 18 22 18 Respiratory Effort / Characteristics Non-Labored Non-Labored Respiratory Depth Normal Normal Respiratory Pattern Regular Blood Pressure 141/108 H Blood Pressure [Left Arm] 138/108 H Blood Pressure Mean 119 Blood Pressure Mean [Left Arm] 118 Blood Pressure Position [Left Arm] Lying Pulse Oximetry 97 98 98 Oxygen Delivery Method Room Air Room Air Sepsis Recent Fever Within 48 Hours No Sepsis New/Unexplained Change in Mental Status No Sepsis Action Taken by Nursing No Action Required Laboratory Data Result diagrams: 05/03/21 17:24 05/03/21 18:30 Lab Results 05/03/21 05/03/21 05/03/21 Range/Units 17:24 17:24 17:24 WBC 5.09 (4.8-10.8) K/uL RBC 5.49 H (4.2-5.4) M/uL Hgb 16.7 H (12.0-16.0) g/dL Hct 49.1 H (37-47) % MCV 89.4 (80-100) fL MCH 30.4 (25-34) pg MCHC 34.0 (32-36) g/dL RDW Std Deviation 40.5 (36.4-46.3) fL RDW Coeff of Rishi 12.4 (11.5-14.5) % Plt Count 192 (130-400) K/uL MPV 10.6 H (7.4-10.4) fL Immature Gran % (Auto) 1.4 % Neut % (Auto) 57.9 % Lymph % (Auto) 32.2 % [place] % (Auto) 8.3 % Eos % (Auto) 0.0 % Baso % (Auto) 0.2 % Neut # (Auto) 2.95 (1.4-6.5) K/uL Lymph # (Auto) 1.64 (1.2-3.4) K/uL [place] # (Auto) 0.42 (0.11-0.59) K/uL Eos # (Auto) 0.00 (0-0.5) K/uL Baso # (Auto) 0.01 (0-0.2) K/uL Immature Gran # (Auto) 0.07 H (0.00-0.02) K/uL PT 10.4 (9.0-12.0) Seconds INR 1.0 (0.9-1.1) APTT 32.2 H (21.0-31.0) Seconds PTT Ratio 1.2 D-Dimer 350 (0-500) ug/L FEU VBG pH (7.36-7.41) Sodium 129 L (136-145) mmol/L Potassium (3.5-5.1) mmol/L Chloride 104 (98-107) mmol/L Carbon Dioxide 10 L (21-32) mmol/L Anion Gap 15 H (3-11) BUN 11 (6-23) mg/dl Creatinine 0.58 L (0.6-1.2) mg/dl Est Cr Clr Drug Dosing 158.4 ml/min Est GFR ( Amer) 149.5 ml/min Est GFR (Non-Af Amer) 129.0 ml/min BUN/Creatinine Ratio 19.0 (10-20) Glucose 353 H* (70-99) mg/dl Calcium 8.4 L (8.5-10.1) mg/dl Phosphorus (2.5-4.9) mg/dl Magnesium (1.7-2.4) mg/dl Total Bilirubin 0.4 (0.2-1.0) mg/dl AST (13-39) U/L ALT 29 (7-52) U/L Alkaline Phosphatase (34-104) U/L Troponin I < 0.03 (0-0.04) ng/ml Total Protein 6.8 (6.0-8.3) gm/dl Albumin 3.9 (3.4-5.0) gm/dl Globulin 2.9 (2.5-4.0) gm/dl Albumin/Globulin Ratio 1.3 (0.9-2) Lipase 17 (11-82) U/L SARS-CoV-2 (PCR) (Negative) Influenza Type A (PCR) (Neg) Influenza Type B (PCR) (Neg) RSV (RT-PCR) (Neg) 05/03/21 05/03/21 05/03/21 Range/Units 17:24 18:30 18:52 WBC (4.8-10.8) K/uL RBC (4.2-5.4) M/uL Hgb (12.0-16.0) g/dL Hct (37-47) % MCV (80-100) fL MCH (25-34) pg MCHC (32-36) g/dL RDW Std Deviation (36.4-46.3) fL RDW Coeff of Rishi (11.5-14.5) % Plt Count (130-400) K/uL MPV (7.4-10.4) fL Immature Gran % (Auto) % Neut % (Auto) % Lymph % (Auto) % [place] % (Auto) % Eos % (Auto) % Baso % (Auto) % Neut # (Auto) (1.4-6.5) K/uL Lymph # (Auto) (1.2-3.4) K/uL [place] # (Auto) (0.11-0.59) K/uL Eos # (Auto) (0-0.5) K/uL Baso # (Auto) (0-0.2) K/uL Immature Gran # (Auto) (0.00-0.02) K/uL PT (9.0-12.0) Seconds INR (0.9-1.1) APTT (21.0-31.0) Seconds PTT Ratio D-Dimer (0-500) ug/L FEU VBG pH 7.22 L (7.36-7.41) Sodium 130 L (136-145) mmol/L Potassium 4.6 (3.5-5.1) mmol/L Chloride 103 (98-107) mmol/L Carbon Dioxide 15 L (21-32) mmol/L Anion Gap 12 H (3-11) BUN 10 (6-23) mg/dl Creatinine 0.63 (0.6-1.2) mg/dl Est Cr Clr Drug Dosing 145.9 ml/min Est GFR ( Amer) 145.5 ml/min Est GFR (Non-Af Amer) 125.5 ml/min BUN/Creatinine Ratio 15.9 (10-20) Glucose 314 H* (70-99) mg/dl Calcium 8.4 L (8.5-10.1) mg/dl Phosphorus 2.9 (2.5-4.9) mg/dl Magnesium 1.4 L (1.7-2.4) mg/dl Total Bilirubin (0.2-1.0) mg/dl AST 23 (13-39) U/L ALT 27 (7-52) U/L Alkaline Phosphatase (34-104) U/L Troponin I (0-0.04) ng/ml Total Protein (6.0-8.3) gm/dl Albumin (3.4-5.0) gm/dl Globulin (2.5-4.0) gm/dl Albumin/Globulin Ratio (0.9-2) Lipase (11-82) U/L SARS-CoV-2 (PCR) POSITIVE A* (Negative) Influenza Type A (PCR) Negative (Neg) Influenza Type B (PCR) Negative (Neg) RSV (RT-PCR) Negative (Neg) Administered Medications Insulin Human Regular 250 (units/ Sodium Chloride) 250 mls @ 9.2 mls/hr IV .Q24H [facility]; Protocol Stop: 06/02/21 18:14 Last Admin: 05/03/21 19:12 Dose: 9.2 units/hr, 9.2 mls/hr Documented by: [id number] Cosigned by: [id number] Discontinued Medications Sodium Chloride (Nss 1000ml) 1,000 mls @ 999 mls/hr IV .Q1H1M STA Stop: 05/03/21 17:53 Last Infusion: 05/03/21 18:31 Dose: 0 mls/hr Documented by: [id number] Admin: 05/03/21 17:27 Dose: 999 mls/hr Documented by: [id number] Sodium Chloride (Nss 1000ml) 1,000 mls @ 999 mls/hr IV .Q1H1M ONE Stop: 05/03/21 18:33 Last Admin: 05/03/21 17:37 Dose: 999 mls/hr Documented by: [id number] Insulin Human Regular 9 units/ (Syringe) 9 mls @ 30 mls/min IV NOW ONE Stop: 05/03/21 19:01 Last Admin: 05/03/21 19:12 Dose: 30 mls/min Documented by: [id number] Cosigned by: [id number] Imaging Data Radiologist's Impression: Chest X-Ray 05/03/21 16:53 XR chest 1V portable CLINICAL HISTORY: Atypical chest pain. COMPARISON STUDY: Chest radiograph October 03, 2020. FINDINGS: Lung volumes are at the lower limits of normal. Lungs are clear. There is no pneumothorax or pleural effusion. Cardiac size is normal. Mediastinal contours are normal. There is no evidence for pulmonary edema. IMPRESSION: No acute cardiopulmonary findings. ACT 112: Negative or not required by law. Electronically signed by: Bharat Santizo M.D. 05/03/2021 5:33 PM Discharge Plan Visit Data Chief Complaint: Syncope Stated Complaint: COVID+, WEAKNESS, SYNCOPE, FEVER ED Provider: Gregory Perez Discharge Problem: DKA (diabetic ketoacidosis), COVID-19 Forms Stand Alone Forms: [facility] [place] Prescriptions Prescriptions: No Action (DME) Ketone Urine Test Strip See Rx Instructions .ROUTE .MEDSUPPLY Qty: 50 RF: 2 (DME) OneTouch Verio test strips Strip See Rx Instructions .ROUTE .MEDSUPPLY Qty: 200 RF: 5 (DME) lancets [OneTouch Delica Lancets] 33 gauge misc See Rx Instructions [id number] .MEDSUPPLY Qty: 200 RF: 5 (DME) pen needle, diabetic [BD Ultra-Fine Rasheeda Pen Needle] 32 gauge x 5/32" needle See Rx Instructions [id number] .MEDSUPPLY Qty: 400 RF: 3 multivitamin Tablet 1 tab PO QAM RF: 0 Lantus Solostar U-100 Insulin 100 unit/mL (3 mL) insulin pen 30 unit subcut DAILY 90 Days Qty: 15 RF: 3 benzonatate 100 mg capsule 100 mg PO TID PRN (Reason: Cough) RF: 0 Referrals Referrals: Melanie Boss DO [Primary Care Provider] - Discharge Problem: DKA (diabetic ketoacidosis) Qualifiers: Diabetes mellitus type: type 1 Diabetes mellitus complication detail: without coma Qualified Code(s): E10.10 - Type 1 diabetes mellitus with ketoacidosis without coma
[2021-05-03 17:31] LABS: Basophils # (auto) 0.01 K/uL (0-0.2); Basophils % (auto) 0.2 %; Hematocrit (blood only) 49.1 % (37-47); Hemoglobin 16.7 g/dL (12.0-16.0); Immature Granulocytes # (auto) 0.07 K/uL (0.00-0.02); Immature Granulocytes % (auto) 1.4 %; Lymphocytes # (auto) 1.64 K/uL (1.2-3.4); Lymphocytes % (auto) 32.2 %; Mean Corpuscular Hemoglobin 30.4 pg (25-34); Mean Corpuscular Volume 89.4 fL (80-100); Mean Platelet Volume 10.6 fL (7.4-10.4); Monocytes # (auto) 0.42 K/uL (0.11-0.59); Monocytes % (auto) 8.3 %; Neutrophils # (auto) 2.95 K/uL (1.4-6.5); Neutrophils % (auto) 57.9 %; Platelet Count 192 K/uL (130-400); RDW Coefficient of Variation 12.4 % (11.5-14.5); RDW Standard Deviation 40.5 fL (36.4-46.3); Red Blood Count 5.49 M/uL (4.2-5.4); White Blood Count 5.09 K/uL (4.8-10.8)
[2021-05-03] MEDS ORDERED: SODIUM CHLORIDE 0.9% 1000ML 1,000 ML IV ONE (17:33)
--- NOTE | 2021-05-03 17:35 | XRay Report ---
XR chest 1V portable CLINICAL HISTORY: Atypical chest pain. COMPARISON STUDY: Chest radiograph October 03, 2020. FINDINGS: Lung volumes are at the lower limits of normal. Lungs are clear. There is no pneumothorax o r pleural effusion. Cardiac size is normal. Mediastinal contours are normal. There is no evidence for pulmonary edema. IMPRESSION: No acute cardiopulmonary findings. ACT 112: Negative or not required by law. Electronically signed by: Bharat Santizo M.D. 05/03/2021 5:33 PM
[2021-05-03 17:43] LABS: D Dimer 350 ug/L FEU (0-500); Partial Thromboplastin Ratio 1.2; Partial Thromboplastin Time 32.2 Seconds (21.0-31.0); Prothrombin Time 10.4 Seconds (9.0-12.0)
[2021-05-03 18:02] LABS: Alanine Aminotransferase 29 U/L (7-52); Albumin Globulin Ratio 1.3 (0.9-2); Albumin Level 3.9 gm/dl (3.4-5.0); Anion Gap 15 (3-11); Bilirubin,Total 0.4 mg/dl (0.2-1.0); Blood Urea Nitrogen 11 mg/dl (6-23); Calcium 8.4 mg/dl (8.5-10.1); Carbon Dioxide 10 mmol/L (21-32); Chloride 104 mmol/L (98-107); Creatinine Clr Calc Pharmacy 158.4 ml/min; Est GFR (African American) 149.5 ml/min; Globulin 2.9 gm/dl (2.5-4.0); Glucose 353 mg/dl (70-99); Lipase 17 U/L (11-82); Sodium 129 mmol/L (136-145); Total Protein 6.8 gm/dl (6.0-8.3); Troponin I < 0.03 ng/ml (0-0.04)
[2021-05-03] MEDS ORDERED: STAT IV Infusion **Titration per Protocol STA ×4 (18:12→19:40)
[2021-05-03 18:13] LABS: Influenza A virus by PCR Negative (Neg); Influenza B virus by PCR Negative (Neg); RSV by PCR Negative (Neg)
[2021-05-03] MEDS ORDERED: INSULIN REGULAR 250 UNITS in SODIUM CHLORIDE 0.9% 247.5 ML IV SCH ×2 (18:15→22:17)
[2021-05-03] MEDS ORDERED: NORMOSOL-R 1,000 ML IV SCH ×2 (18:15→22:17)
[2021-05-03 18:33] LABS: SARS CoV2 RNA(COVID-19) InHosp POSITIVE (Negative)
[2021-05-03] MEDS ORDERED: GLUCAGON FOR INJ 1 MG VIAL SQ PRN (19:00)
[2021-05-03] MEDS ORDERED: GLUCOSE 40% GEL 15 GM TUBE PO PRN (19:00)
[2021-05-03] MEDS ORDERED: CARBOHYDRATES FOR HYPOGLYCEMIA PO PRN (19:00)
[2021-05-03] MEDS ORDERED: GLUCOSE 10 TABS/TUBE PO PRN (19:00)
[2021-05-03] MEDS ORDERED: DEXTROSE 50% 50 ML SYRINGE IV PRN (19:00)
[2021-05-03] MEDS ORDERED: DKA GOAL RANGE 150-250 mg/dl ONE ×2 (19:00→22:17)
[2021-05-03] MEDS ORDERED: INSULIN HUMAN REGULAR PER IV ONE (19:00)
[2021-05-03 19:07] LABS: BUN Creatinine Ratio 15.9 (10-20); Calcium 8.4 mg/dl (8.5-10.1); Creatinine Clr Calc Pharmacy 145.9 ml/min; Est GFR (African American) 145.5 ml/min; Est GFR (Non-African American) 125.5 ml/min; Magnesium 1.4 mg/dl (1.7-2.4); Phosphorus 2.9 mg/dl (2.5-4.9); Potassium 4.6 mmol/L (3.5-5.1)
--- NOTE | 2021-05-03 19:11 | History & Physical Report ---
Date of Service May 03, 2021 Assessment & Plan (1) DKA (diabetic ketoacidosis): (2) COVID-19: Plan: -Patient (3) Diabetes type 1, uncontrolled: (4) Depression: History of Present Illness Chief Complaint: syncope, weakness Primary Care Provider: Melanie Boss DO The patient is a 25 y/o F with history of poorly controlled type 1 diabetes, on Lantus, who presents today with generalized weakness and possible syncopal event. states that she had a syncopal event earlier today. Patient states that earlier today she was beginning to feel weak, she has a history of vasovagal syncope and states she had a prodrome as if she was going to pass out when she got up to go to the bathroom. She states she then lowered herself to the bathroom floor and laid down. She states she believes she passed out for several seconds and then woke up. She denies any head trauma. Patient states that her boyfriend and her child recently tested positive for COVID-19 and she is concerned she may have COVID-19. She denies any chest pain, states she has had a cough in addition to her generalized weakness and dizziness over the past 3 days. On arrival here to the ED the patient is afebrile, she is tachycardic at 110, she does not exhibit any increased work of breathing, she is anxious appearing and tearful, blood pressure stable. She is otherwise nontoxic- appearing on my initial assessment. Allergies Allergy/AdvReac Type Severity Reaction Status Date / Time fluoxetine AdvReac Intermediate Bad Verified 05/03/21 17:22 thoughts diphenhydramine AdvReac Mild jittery Verified 05/03/21 17:22 [From Unisom (diphenhydramine)] nickel AdvReac Rash Verified 05/03/21 17:22 Home Medications Medication Instructions Recorded Confirmed Type acetone (urine) test (Ketone Urine #50 ea 11/06/19 12/06/20 Rx Test) multivitamin 1 tab PO QAM 02/23/20 05/03/21 History blood sugar diagnostic (OneTouch #200 ea 02/26/20 12/06/20 Rx Verio test strips) lancets 33 gauge (OneTouch Delica #200 ea 02/26/20 12/06/20 Rx Lancets) pen needle, diabetic 32 gauge x #400 ea 02/26/20 12/06/20 Rx 32" (BD Ultra-Fine Rasheeda Pen Needle) insulin glargine 100 unit/mL (3 30 unit SUBCUT DAILY 90 Days #15 ml 07/06/20 05/03/21 Rx mL) subcutaneous pen (Lantus Solostar U-100 Insulin) benzonatate 100 mg capsule 100 mg PO TID PRN 05/03/21 05/03/21 History Past Med/Surg History Medical History Abnormal thyroid function test Abscess of skin Cellulitis Cellulitis and abscess of other specified site Depression Fatty liver Gastroesophageal reflux disease Hyperglycemia due to diabetes mellitus Mild preeclampsia Morbid obesity with BMI of 50.0-59.9, adult Pneumonia Restless leg syndrome Seizures Surgical History History of tonsillectomy and adenoidectomy [place] teeth extracted Family History Grandmother (Maternal) Family history of diabetes mellitus Aunt Family history of diabetes mellitus Other No family history of adverse response to anesthesia Denies family history of Ovarian cancer Breast cancer Colorectal cancer Social History Smoking Status: Never smoker Tobacco Type: E-cigarettes / Vaping Second Hand Exposure: No; Hx Alcohol Use: Yes Alcohol type: beer, wine and hard liquor Hx Substance Use: No Preferred Language: Fijian Communication Ability: Effective Trimmer Operator Required: No Beliefs That Will Affect Care: None marital status: Single Current Living Situation: Family and Significant Other Current Living Situation Comment: lives with boyfriend and son current occupational status: student Feels Safe at Home: Yes Assistive Devices: Glasses Results & Data Results & Data ([facility]) Vital Signs (Past 12 Hours) Vital Signs Temp Pulse Pulse Resp BP BP Pulse Ox 05/03/21 17:11 115 H 18 98 05/03/21 16:58 110 H 22 138/108 H 98 05/03/21 16:47 36.4 C L 122 H 18 141/108 H 97 PG Care Time/CCT Total # of Minutes Spent Total Time Spent with Patient: Total time spent is greater than 50% in coordination of care (as documented) at patient's floor/unit and/or counseling patient: Coding Diagnoses DKA (diabetic ketoacidosis) E10.10 Diabetes mellitus complication detail: without coma Diabetes mellitus type: type 1 COVID-19 U07.1 Diabetes type 1, uncontrolled E10.65 Depression F32.9 (1) DKA (diabetic ketoacidosis) Diabetes mellitus complication detail: without coma Diabetes mellitus type: type 1 Qualified Code(s): E10.10 - Type 1 diabetes mellitus with ketoacidosis without coma
[2021-05-03] MEDS: INSULIN HUMAN REGULAR PER UNIT 9 UNITS in SYRINGE 8.91 ML IV ONE ×2 (19:12→19:20)
--- NOTE | 2021-05-03 19:57 | History & Physical Report ---
Date of Service May 03, 2021 Assessment & Plan (1) DKA (diabetic ketoacidosis): Plan: 25yo female with Type II-DM presenting with DKA. Patient also found to have Covid-19 infection which is most likely underlying physiologic stressor causing the DKA. Patient is on Lantus 30u daily and is compliant with her medications. She was previously on Novolog as well but presently is not due to insurance coverage. Last HgbA1C = 12.5 on 07/04/20 Laboratory findings consistent with moderate DKA on arrival, have improved after 2L IVF. Presently with QSD=212, Anion gap = 12 and HCO3=15. pH=7.22. Insulin drip has been started in the ER. Given improvement thus far with IVF anticipate she will correct rapidly with ongoing IVF and insulin. -Admit to medical with telemetry -Continue Insulin gtt for now -BSG q 1 hourly -Check BMP, Mg, PO4 and VBG q 4 hours - next blood draw should be at 22:30 - will most likely transition to Lantus dosing at that time pending results -Continue IVF - Normosol at 125mL/hr -Check HgbA1C -NPO for now (2) COVID-19: Plan: Patient developed Covid-19 symptoms 3 days ago. She is not vaccinated against Covid-19. Presently she is 98% on room air with no respiratory distress. Laboratory results are within normal limits - no lymphopenia. Sodium corrects to 135 for hyperglycemia. CXR with no airspace disease. Patient is obese with BMI of 37 as well as diabetic which are risk factors for developing more severe disease. -Maintain isolation precautions -Monitor oxygenation - presently 98% on room air. No indication for medical therapies or supplemental O2 at this time. -Lovenox 40mg BID for DVT prevention (3) Sinus tachycardia: Plan: Patient with sinus tachycardia upon arrival. Upon review of records she has had had fairly consistent sinus tachycardia. She has slightly enlarged P waves noted on EKG, ?LAE. Tachycardia to be expected in acute illness, volume depletion, Covid-19 infection. Patient also appears mildly anxious to be in the hospital. Consider additional workup on outpatient basis - ?echocardiogram, evaluation for POTS -Will check TSH -Telemetry monitoring Plan: F/E/N - Normosol at 125mL/hr, Mg repletion, trend labs per DKA protocol, NPO for now - will advance to CC diet when she is transitioned to subcutaneous insulin Ppx - Loveno 40 BID Code - Full per discussion with patient Dispo - Admit to medical with telemetry - management of mild-DKA History of Present Illness Chief Complaint: Covid-19, Mild DKA Primary Care Provider: Melanie Boss DO Melanie Reynaga is a 25yo female with history of DM (initially diagnosed with Type-I DM but recently had antibody workup and told that she has Type-II instead - is on Metformin as an outpatient and follows in [facility]) Poorly controlled with last HgbA1C = 12.5 on 07/04/20 Patient lives with her son and boyfriend who became ill with fever, body aches, cough and SOB 5 days ago. Patient developed fever to 101, chills, body aches, fatigue, cough and nausea three days ago. She has been unable to eat for the last day. Her blood sugars have been borderline low but have been high today. She has had some crampy abdominal pain and constipation as well. She had a syncopal event this afternoon in her bathroom where she had to lower herself to the floor. She lost consciousness briefly. Denies head trauma, seizure activity, chest pain, SOB. No additional complaints. Patient afebrile, tachycardic, breathing comfortably on room air with no respiratory distress. Her labs suggestive of moderate DKA - blood sugar 353, Anion gap=15, Serum HCO3=10, pH on VBG=7.22. She was administered 2L of IV NSS - repeat chemistry with improvement. Still with mild DKA per laboratory parameters with BSG = 314, Anion gap = 12, Serum HCO3=15 ER Course: NSS x 2L, insulin gtt Allergies Allergy/AdvReac Type Severity Reaction Status Date / Time fluoxetine AdvReac Intermediate Bad Verified 05/03/21 17:22 thoughts diphenhydramine AdvReac Mild jittery Verified 05/03/21 17:22 [From Unisom (diphenhydramine)] nickel AdvReac Rash Verified 05/03/21 17:22 Home Medications Medication Instructions Recorded Confirmed Type acetone (urine) test (Ketone Urine #50 ea 11/06/19 12/06/20 Rx Test) multivitamin 1 tab PO QAM 02/23/20 05/03/21 History blood sugar diagnostic (OneTouch #200 ea 02/26/20 12/06/20 Rx Verio test strips) lancets 33 gauge (OneTouch Delica #200 ea 02/26/20 12/06/20 Rx Lancets) pen needle, diabetic 32 gauge x #400 ea 02/26/20 12/06/20 Rx 5/32" (BD Ultra-Fine Rasheeda Pen Needle) insulin glargine 100 unit/mL (3 30 unit SUBCUT DAILY 90 Days #15 ml 07/06/20 05/03/21 Rx mL) subcutaneous pen (Lantus Solostar U-100 Insulin) benzonatate 100 mg capsule 100 mg PO TID PRN 05/03/21 05/03/21 History Past Med/Surg History Medical History Abnormal thyroid function test Abscess of skin Depression Fatty liver Gastroesophageal reflux disease Hyperglycemia due to diabetes mellitus Morbid obesity with BMI of 50.0-59.9, adult Restless leg syndrome Seizures pt states she had a few as a child, never diagnosed with epilepsy; last was over 10yrs ago--no neurologist, no meds Surgical History History of tonsillectomy and adenoidectomy [place] teeth extracted Family History Grandmother (Maternal) Family history of diabetes mellitus Aunt Family history of diabetes mellitus Other No family history of adverse response to anesthesia Denies family history of Ovarian cancer Breast cancer Colorectal cancer Social History Smoking Status: Never smoker Tobacco Type: E-cigarettes / Vaping Second Hand Exposure: No; Hx Alcohol Use: Yes Alcohol type: beer, wine and hard liquor Hx Substance Use: No Preferred Language: Indonesian Communication Ability: Effective Shirt Maker Required: No Beliefs That Will Affect Care: None marital status: Single Current Living Situation: Family and Significant Other Current Living Situation Comment: lives with boyfriend and son current occupational status: student Feels Safe at Home: Yes Assistive Devices: Glasses Review of Systems Review of Systems: All systems reviewed & are unremarkable except as noted in HPI & below +Subjective fevers, chills, sweats, body aches, fatigue, dizziness, nausea, non-bloody/non-bilious vomiting Physical Exam Physical Exam: General: patient resting comfortably, NAD, non-toxic in appearance, AA&O x 4 Skin: warm, dry, intact, no rashes or lesions HEENT: NC/AT, PERRL, EOMI, anicteric sclera, conjunctiva without injection, external ear normal to inspection and nontender, nares patent, moist mucus membranes, dentition intact, no oropharyngeal lesions, neck supple, trachea midline, no LAD, no thyromegaly, no JVD Heart: +S1/S2, regular, tachycardic, no m/r/g Lungs: equal air entry bilaterally, no rales/rhonchi/wheezes Abd: +BS, soft, NT/ND, no masses/organomegaly/ascites Ext: warm, 2+ pulses in UE/LE bilaterally, no clubbing/cyanosis or edema Neuro: nonfocal, patient AA&O x 4, speech intact, no facial droop, moving all extremities on command with equal strength 5/5 Results & Data Results & Data ([facility]) Vital Signs (Past 12 Hours) Vital Signs Temp Pulse Pulse Resp BP BP Pulse Ox 05/03/21 17:11 115 H 18 98 05/03/21 16:58 110 H 22 138/108 H 98 05/03/21 16:47 36.4 C L 122 H 18 141/108 H 97 Laboratory Results Laboratory Results WBC 5.09 K/uL (4.8-10.8) 05/03/21 17:24 RBC 5.49 M/uL (4.2-5.4) H 05/03/21 17:24 Hgb 16.7 g/dL (12.0-16.0) H 05/03/21 17:24 Hct 49.1 % (37-47) H 05/03/21 17:24 MCV 89.4 fL (80-100) 05/03/21 17:24 MCH 30.4 pg (25-34) 05/03/21 17:24 MCHC 34.0 g/dL (32-36) 05/03/21 17:24 RDW Std Deviation 40.5 fL (36.4-46.3) 05/03/21 17:24 RDW Coeff of Rishi 12.4 % (11.5-14.5) 05/03/21 17: Plt Count 192 K/uL (130-400) 05/03/21 17: MPV 10.6 fL (7.4-10.4) H 05/03/21 17:24 Immature Gran % (Auto) 1.4 % 05/03/21 17: Neut % (Auto) 57.9 % 05/03/21 17: Lymph % (Auto) 32.2 % 05/03/21 17:24 Blair % (Auto) 8.3 % 05/03/21 17: Eos % (Auto) 0.0 % 05/03/21 17: Baso % (Auto) 0.2 % 05/03/21: Neut # (Auto) 2.95 K/uL (1.4-6.5) 05/03/21 17:24 Lymph # (Auto) 1.64 K/uL (1.2-3.4) 05/03/21 17:24 Blair # (Auto) 0.42 K/uL (0.11-0.59) 05/03/21 17:24 Eos # (Auto) 0.00 K/uL (0-0.5) 05/03/21 17:24 Baso # (Auto) 0.01 K/uL (0-0.2) 05/03/21 17: Immature Gran # (Auto) 0.07 K/uL (0.00-0.02) H 05/03/21 17:24 PT 10.4 Seconds (9.0-12.0) 05/03/21 17:24 INR 1.0 (0.9-1.1) 05/03/21 17:24 APTT 32.2 Seconds (21.0-31.0) H 05/03/21 17: PTT Ratio 1.2 05/03/21 17: D-Dimer 350 ug/L FEU (0-500) 05/03/21 17:24 VBG pH 7.22 (7.36-7.41) L 05/03/21 18:52 Sodium 130 mmol/L (136-145) L 05/03/21 18:30 Potassium 4.6 mmol/L (3.5-5.1) 05/03/21 18:30 Chloride 103 mmol/L (98-107) 05/03/21 18:30 Carbon Dioxide 15 mmol/L (21-32) L 05/03/21 18:30 Anion Gap 12 (3-11) H 05/03/21 18:30 BUN 10 mg/dl (6-23) 05/03/21 18:30 Creatinine 0.63 mg/dl (0.6-1.2) 05/03/21 18:30 Est Cr Clr Drug Dosing 145.9 ml/min 05/03/21 18:30 Est GFR ( Amer) 145.5 ml/min 05/03/21 18:30 Est GFR (Non-Af Amer) 125.5 ml/min 05/03/21 18:30 BUN/Creatinine Ratio 15.9 (10-20) 05/03/21 18:30 Glucose 314 mg/dl (70-99) H* 05/03/21 18:30 Calcium 8.4 mg/dl (8.5-10.1) L 05/03/21 18:30 Phosphorus 2.9 mg/dl (2.5-4.9) 05/03/21 18:30 Magnesium 1.4 mg/dl (1.7-2.4) L 05/03/21 18:30 Total Bilirubin 0.4 mg/dl (0.2-1.0) 05/03/21 17:24 AST 23 U/L (13-39) 05/03/21 18:30 ALT 27 U/L (7-52) 05/03/21 18:30 Alkaline Phosphatase U/L (34-104) 05/03/21 17:24 Troponin I < 0.03 ng/ml (0-0.04) 05/03/21 17:24 Total Protein 6.8 gm/dl (6.0-8.3) 05/03/21 17:24 Albumin 3.9 gm/dl (3.4-5.0) 05/03/21 17:24 Globulin 2.9 gm/dl (2.5-4.0) 05/03/21 17:24 Albumin/Globulin Ratio 1.3 (0.9-2) 05/03/21 17:24 Lipase 17 U/L (11-82) 05/03/21 17:24 SARS-CoV-2 (PCR) POSITIVE (Negative) A* 05/03/21 17:24 Influenza Type A (PCR) Negative (Neg) 05/03/21 17:24 Influenza Type B (PCR) Negative (Neg) 05/03/21 17:24 RSV (RT-PCR) Negative (Neg) 05/03/21 17:24 Impressions Chest X-Ray 05/03/21 16:53 XR chest 1V portable CLINICAL HISTORY: Atypical chest pain. COMPARISON STUDY: Chest radiograph October 03, 2020. FINDINGS: Lung volumes are at the lower limits of normal. Lungs are clear. There is no pneumothorax or pleural effusion. Cardiac size is normal. Mediastinal contours are normal. There is no evidence for pulmonary edema. IMPRESSION: No acute cardiopulmonary findings. ACT 112: Negative or not required by law. Electronically signed by: Bharat Santizo M.D. 05/03/2021 5:33 PM ECG Additional Comments: EKG with ST at 115, normal axis, IJ=618, QRS=74, WRd=171, no acute changes when compared to prior study PG Care Time/CCT Total # of Minutes Spent Total Time Spent with Patient: Total time spent is greater than 50% in coordination of care (as documented) at patient's floor/unit and/or counseling patient: Coding Level of Care Code 89224 Initial Inpt Care Lvl 2 Diagnoses COVID-19 U07.1 DKA (diabetic ketoacidosis) E10.10 Diabetes mellitus complication detail: without coma Diabetes mellitus type: type 1 Sinus tachycardia R00.0 (1) DKA (diabetic ketoacidosis) Diabetes mellitus complication detail: without coma Diabetes mellitus type: type 1 Qualified Code(s): E10.10 - Type 1 diabetes mellitus with ketoacidosis without coma
[2021-05-03] MEDS ORDERED: MAGNESIUM SULFATE / D5W 1 GM/100 ML BAG IV STA (20:11)
[2021-05-03] MEDS ORDERED: INSULIN ASPART PER UNIT SC SCH (21:00)
[2021-05-03] MEDS ORDERED: POLYETHYLENE (MIRALAX) 17 GM PACK PO PRN (22:17)
[2021-05-03] MEDS ORDERED: BENZONATATE 100 MG CAPSULE PO PRN (22:17)
[2021-05-03] MEDS ORDERED: DOCUSATE SODIUM 100 MG CAP PO PRN (22:17)
[2021-05-03] MEDS ORDERED: COUGH DROP (SUGAR FREE) LOZ 24 LOZ/1 BOX BUCCAL PRN (22:40)
[2021-05-03 22:47] LABS: BUN Creatinine Ratio 15.5 (10-20); Calcium 8.1 mg/dl (8.5-10.1); Creatinine Clr Calc Pharmacy 158.4 ml/min; Est GFR (African American) 149.5 ml/min; Magnesium 1.7 mg/dl (1.7-2.4); Phosphorus 1.4 mg/dl (2.5-4.9); Potassium 3.6 mmol/L (3.5-5.1)
[2021-05-03] MEDS: INSULIN ASPART PER UNIT SC SCH (22:50)
[2021-05-03] MEDS ORDERED: POTASSIUM PHOS 3 MMOL/1 ML INFUSION IV STA (22:50)
[2021-05-03] MEDS: MAGNESIUM SULFATE / D5W 1 GM/100 ML BAG IV SCH (22:58)
[2021-05-03] MEDS: ACETAMINOPHEN 325 MG TAB PO PRN (22:58)
[2021-05-03] MEDS ORDERED: POTASSIUM PHOSPHATE 15 MMOL in SODIUM CHLORIDE 0.9% 250 ML IV ONE (23:30)
[2021-05-03] MEDS: ENOXAPARIN INJ 40 MG/0.4 ML SYR SQ SCH (23:53)
[2021-05-04] MEDS ORDERED: PENDING 1/2NSS+40mEq KCL IVF SCH
[2021-05-04] MEDS ORDERED: PENDING D5 1/2NS+40mEq KCL IVF SCH
[2021-05-04] MEDS: MAGNESIUM SULFATE / D5W 1 GM/100 ML BAG IV SCH ×2 (00:31→04:17)
[2021-05-04] MEDS: POTASSIUM CHLORIDE 40 MEQ in D5W AND 1/2NSS 1,000 ML IV SCH ×2 (02:42→11:24)
[2021-05-04 03:18] LABS: Anion Gap 10 (3-11); BUN Creatinine Ratio 17.4 (10-20); Blood Urea Nitrogen 8 mg/dl (6-23); Calcium 7.7 mg/dl (8.5-10.1); Carbon Dioxide 16 mmol/L (21-32); Chloride 106 mmol/L (98-107); Creatinine Clr Calc Pharmacy 199.8 ml/min; Est GFR (African American) > 150.0 ml/min; Est GFR (Non-African American) 139.2 ml/min; Glucose 182 mg/dl (70-99); Magnesium 2.1 mg/dl (1.7-2.4); Phosphorus 2.3 mg/dl (2.5-4.9); Potassium 4.1 mmol/L (3.5-5.1); Sodium 132 mmol/L (136-145)
[2021-05-04 06:53] LABS: BUN Creatinine Ratio 11.5 (10-20); Calcium 8.2 mg/dl (8.5-10.1); Creatinine Clr Calc Pharmacy 152.3 ml/min; Est GFR (African American) 147.1 ml/min; Est GFR (Non-African American) 126.9 ml/min; Magnesium 2.2 mg/dl (1.7-2.4); Phosphorus 1.3 mg/dl (2.5-4.9); Potassium 3.5 mmol/L (3.5-5.1)
[2021-05-04] MEDS: ACETAMINOPHEN 325 MG TAB PO PRN (07:43)
[2021-05-04] MEDS: INSULIN ASPART PER UNIT SC SCH ×2 (08:06→12:29)
[2021-05-04] MEDS: ENOXAPARIN INJ 40 MG/0.4 ML SYR SQ SCH ×2 (08:52→14:06)
--- NOTE | 2021-05-04 09:57 | Electrocardiogram Report ---
Test Reason : Blood Pressure : / mmHG Vent. Rate : 115 BPM Atrial Rate : 115 BPM P-R Int : 180 ms QRS Dur : 074 ms QT Int : 316 ms P-R-T Axes : 050 017 029 degrees QTc Int : 437 ms Sinus tachycardia Low voltage QRS Borderline ECG When compared with ECG of 03-OCT-2020 19:43, No significant change was found Confirmed by Vasyl Villela ([id number]) on 05/04/2021 9:57:07 AM Referred By: REFERRED SELF Confirmed By:Vasyl Villela
[2021-05-04 11:35] LABS: Anion Gap 6 (3-11); Blood Urea Nitrogen 6 mg/dl (6-23); Calcium 7.5 mg/dl (8.5-10.1); Carbon Dioxide 19 mmol/L (21-32); Chloride 106 mmol/L (98-107); Creatinine Clr Calc Pharmacy 201.9 ml/min; Est GFR (African American) > 150.0 ml/min; Est GFR (Non-African American) 139.2 ml/min; Glucose 246 mg/dl (70-99); Potassium 3.7 mmol/L (3.5-5.1); Sodium 131 mmol/L (136-145)
[2021-05-04 12:06] LABS: Magnesium 1.8 mg/dl (1.7-2.4); Phosphorus 1.1 mg/dl (2.5-4.9)
[2021-05-04] MEDS ORDERED: POTASSIUM PHOS 3 MMOL/1 ML INFUSION IV STA (12:24)
--- NOTE | 2021-05-04 12:29 | Hospitalist Progress Note ---
Date of Service May 04, 2021 Assessment & Plan (1) DKA (diabetic ketoacidosis): Plan: 25yo female with Type II-DM presenting with DKA. Patient also found to have Covid-19 infection which is most likely underlying physiologic stressor causing the DKA. Patient is on Lantus 30u daily and is compliant with her medications. She was previously on Novolog as well but presently is not due to insurance coverage. Last HgbA1C = 12.5% on 07/04/20. Laboratory findings consistent with moderate DKA on arrival. -Continue Insulin gtt for now -BSG q 1 hourly -Check BMP, Mg, PO4 and VBG q 4 hours - next blood draw should be at 22:30 - will most likely transition to Lantus dosing at that time pending results -Continue IVF - Normosol at 125mL/hr -Check HgbA1C -> Discussed with pharmacy; will transition back to basal-bolus tonight. (2) COVID-19: Plan: Patient developed Covid-19 symptoms 04/30/2021. She is not vaccinated against Covid-19. Presently she is 98% on room air with no respiratory distress. CXR with no airspace disease. Patient is obese with BMI of 37 as well as diabetic which are risk factors for developing more severe disease. - Maintain isolation precautions - Monitor oxygenation - presently 98% on room air. No indication for medical therapies or supplemental O2 at this time. - Lovenox 40mg BID for DVT prevention (3) Sinus tachycardia: Plan: Patient with sinus tachycardia upon arrival. Upon review of records she has had had fairly consistent sinus tachycardia. She has slightly enlarged P waves noted on EKG. Tachycardia to be expected in acute illness, volume depletion, Covid-19 infection. - TSH was 2.6 this admission. - Consider additional workup on outpatient basis - ?echocardiogram, evaluation f or POTS - Telemetry monitoring Admission and Anticipated Discharge Date Admission Date: May 03, 2021 Subjective Has a headache/sinus headache this morning. Very hungry since she hasn't eaten in 2 days. Reports no fevers/chills, chest pain, shortness of breath, abdominal pain, nausea, or vomiting. Physical Exam Constitutional: WD/WN, vitals as above Eyes: EOM intact bilaterally; no conjunctival abnormality ENMT: external ear and nose normal, oropharynx normal Neck: trachea midline, no thyromegaly normal visual inspection Respiratory: normal respiratory effort, lungs clear to auscultation no respiratory distress Cardiovascular: RRR, no murmur, no edema Gastrointestinal (Abdomen): Inspection/Auscultation: abdomen normal to inspection; abdomen not distended Musculoskeletal: no cyanosis or clubbing, extremities motor strength 5/5 Skin: no rashes, warm and dry Neurologic: moves all extremities and awake Psychiatric: Orientation: alert, oriented to person and cooperative Results & Data Results & Data ([facility]) Vital Signs (Past 12 Hours) Vital Signs Temp Pulse Pulse Resp BP BP Pulse Ox 05/04/21 11:11 37.0 C 90 18 97/60 L 96 05/04/21 07:04 37.8 C H 111 H 18 123/77 96 05/04/21 01:32 36.9 C 105 H 20 118/82 96 05/04/21 01:01 99 H 14 124/78 98 PG Care Time/CCT Total # of Minutes Spent Total Time Spent with Patient: Total time spent is greater than 50% in coordination of care (as documented) at patient's floor/unit and/or counseling patient: Coding Level of Care Code 70421 Subseq Hosp Care Lvl 2 Diagnoses DKA (diabetic ketoacidosis) E10.10 Diabetes mellitus complication detail: without coma Diabetes mellitus type: type 1 COVID-19 U07.1 Sinus tachycardia R00.0 (1) DKA (diabetic ketoacidosis) Diabetes mellitus complication detail: without coma Diabetes mellitus type: type 1 Qualified Code(s): E10.10 - Type 1 diabetes mellitus with ketoacidosis without coma
[2021-05-04] MEDS ORDERED: PHARMACY GLYCEMIC MGMT CONSULT PRN (12:44)
[2021-05-04] MEDS ORDERED: NSS + 20MEQ KCL 20 MEQ/1,000 ML BAG IV SCH (12:45)
[2021-05-04] MEDS ORDERED: POTASSIUM PHOSPHATE 30 MMOL in DEXTROSE 5% 500 ML IV ONE (13:00)
[2021-05-04] MEDS ORDERED: INSULIN GLARGINE SOLOSTAR 100 UNITS/ML 3 ML PEN SC SCH ×2 (13:00→21:00)
--- NOTE | 2021-05-04 14:18 | Pharmacy Report ---
Pharmacy Glycemic Short Note 2 - Date of Service May 04, 2021 - Glycemic Short BSG Results (Last 24 hours): 05/03/21 05/03/21 05/03/21 17:24 18:30 22:12 Glucose 353 H* 314 H* 243 H 05/04/21 05/04/21 05/04/21 02:30 05:35 10:45 Glucose 182 H 204 H 246 H OUTPATIENT ANTIDIABETIC REGIMEN: * Lantus 30 units HS * NovoLog 5 units TID + CF 25mg/dl/unit for BSG > 150mg/dl -no longer taking d/t change in insurance formulary in 2021 * Metformin XR 500mg BID * Ozempic 0.5mg SQ weekly -no longer taking d/t change in insurance formulary in 2021 * New A1c pending, 12.5% 07/04/20 ASSESSMENT: * 25 yo female admitted for mild DKA, COVID+, PMH anxiety, depression, Type 2 DM (~2 years, diagnosed June 2019), abnormal thyroid, GERD, seizures. * DKA d/t insurance no longer covering NovoLog and Ozempic, and acute illness, met w/ VEE Osorio, see DC recs below. * Patient remains on insulin drip, changing to NS + 20K fluids to remove dextrose, patient starting diet, pharmacy consulted for transition to SQ * Low Phos, treating with IV KPhos (500ml D5W bag) * Will begin home dose of basal insulin and overlap with insulin drip x 6 hours and CF/CR with NovoLog * Patient agreeable to stay overnight another night prior to discharge PLAN FOR INPATIENT GLYCEMIC CONTROL: * Metformin XR 500mg BID - resume with dinner tonight * Basal insulin * Lantus 30 units SQ daily starting today at 1300 * 15 units SQ tonight for BSG > 180mg/dl * IV insulin drip protocol, goal range 110-180mg/dl, running at 4.4units/hr, c ontinue until 1900, then DC * Bolus insulin * NovoLog per scale ACHS + [phone] overnight tonight for transition off of IV insulin drip * Goal Range: Low 110 mg/dL - High 140 mg/dL * Correction Factor: 12 mg/dL/unit * Nutritional / Prandial insulin per carb ratio of 1 unit per 4 grams CHO consumed RECOMMENDATIONS FOR DISCHARGE: * Continue Lantus 30 units daily * Metformin - recommend titrating dose up to 1000mg XR BID * Continue fast acting insulin, new Rx for Insulin Aspart pen (generic novolog pen) 5 units TIDm + SSI * DC Ozempic 0.5mg SQ weekly (no longer covered) - change to Trulicity 0.75mg SQ weekly
[2021-05-04] MEDS ORDERED: INSULIN ASPART PER UNIT SC SCH (16:30)
--- NOTE | 2021-05-04 16:48 | Discharge Summary ---
Date of Service May 04, 2021 Admission HPI Per Admitting Provider Melanie Reynaga is a 25yo female with history of DM (initially diagnosed with Type-I DM but recently had antibody workup and told that she has Type-II instead - is on Metformin as an outpatient and follows in [facility]) Poorly controlled with last HgbA1C = 12.5 on 07/04/20 Patient lives with her son and boyfriend who became ill with fever, body aches, cough and SOB 5 days ago. Patient developed fever to 101, chills, body aches, fatigue, cough and nausea three days ago. She has been unable to eat for the last day. Her blood sugars have been borderline low but have been high today. She has had some crampy abdominal pain and constipation as well. She had a syncopal event this afternoon in her bathroom where she had to lower herself to the floor. She lost consciousness briefly. Denies head trauma, seizure activity, chest pain, SOB. No additional complaints. Patient afebrile, tachycardic, breathing comfortably on room air with no respiratory distress. Her labs suggestive of moderate DKA - blood sugar 353, Anion gap=15, Serum HCO3=10, pH on VBG=7.22. She was administered 2L of IV NSS - repeat chemistry with improvement. Still with mild DKA per laboratory parameters with BSG = 314, Anion gap = 12, Serum HCO3=15 ER Course: NSS x 2L, insulin gtt Principal Diagnosis Covid-19 Mild DKA Discharge Exam Constitutional WD/WN, vitals as above Eyes EOM intact bilaterally; no conjunctival abnormality ENMT external ear and nose normal, oropharynx normal Neck trachea midline, no thyromegaly normal visual inspection Respiratory normal respiratory effort, lungs clear to auscultation no respiratory distress Cardiovascular RRR, no murmur, no edema Gastrointestinal (Abdomen) Inspection/Auscultation: abdomen normal to inspection; abdomen not distended Musculoskeletal no cyanosis or clubbing, extremities motor strength 5/5 Skin no rashes, warm and dry Neurologic moves all extremities and awake Psychiatric Orientation: alert, oriented to person and cooperative Discharge Data Allergies Allergy/AdvReac Type Severity Reaction Status Date / Time fluoxetine AdvReac Intermediate Bad Verified 05/03/21 17:22 thoughts diphenhydramine AdvReac Mild jittery Verified 05/03/21 17:22 [From Unisom (diphenhydramine)] nickel AdvReac Rash Verified 05/03/21 17:22 Consultations 05/03/21 19:12 ED Decision to Admit Stat Hospital Course (1) DKA (diabetic ketoacidosis): 25yo female with Type II-DM presenting with DKA. Patient also found to have Covid-19 infection which is most likely underlying physiologic stressor causing the DKA. Patient is on Lantus 30u daily and is compliant with her medications. She was previously on Novolog as well but presently is not due to insurance coverage. Last HgbA1C = 12.5% on 07/04/20. Laboratory findings consistent with moderate DKA on arrival. -Continue Insulin gtt for now -BSG q 1 hourly -Check BMP, Mg, PO4 and VBG q 4 hours - next blood draw should be at 22:30 - will most likely transition to Lantus dosing at that time pending results -Continue IVF - Normosol at 125mL/hr -Check HgbA1C -> Discussed with pharmacy: Transitioned to basal-bolus in the afternoon with her usual dose of home Lantus. At 3:30pm, RN informed me patient had received news that her grandmother was ill and had to leave the hospital right away. Given that she was still on an insulin gtt and receiving IV potassium phosphate, I did tell her she had to leave AMA. While anxious, she was fully capable of making this medical decision and understood the risks. Scripts for all her usual insulin and other DM meds were sent. Roxanna Garcia had seen the patient and verified what was now on formulary for her insurance. This was sent to her pharmacy. The patient was asked to call Dr. Burkett tomorrow morning to schedule a visit. (2) COVID-19: Patient developed Covid-19 symptoms 04/30/2021. She is not vaccinated against Covid-19. Presently she is 98% on room air with no respiratory distress. CXR with no airspace disease. Patient is obese with BMI of 37 as well as diabetic which are risk factors for developing more severe disease. - Maintain isolation precautions - Monitor oxygenation - presently 98% on room air. No indication for medical therapies or supplemental O2 at this time. - Lovenox 40mg BID for DVT prevention (3) Sinus tachycardia: Patient with sinus tachycardia upon arrival. Upon review of records she has had had fairly consistent sinus tachycardia. She has slightly enlarged P waves noted on EKG. Tachycardia to be expected in acute illness, volume depletion, Covid-19 infection. - TSH was 2.6 this admission. 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 Reynaga, You were admitted with Covid-19 and a mild episode of DKA (diabetic ketoacidosis) which was likely kicked off by not being able to be on your full insulin regimen along with getting Covid. We were able to bring your blood sugars in line with insulin through your IV, and we gave you a dose of long-acting (Lantus) insulin today at 1:00pm. Please resume your home insulin dosing and check your blood sugars carefully over the next few days. Please call Dr. Burkett's office tomorrow morning to set up an appointment with her as soon as you are able. I have sent new scripts for short-acting insulin that you can take at meal-time with your usual 5 units + sliding scale. Since that had been working well for you, please try to get back into this regimen. Since you usually take your long-acting insulin at night, please walk this back an hour or so every day (ie, tomorrow take the insulin at 3:00pm, then Wednesday at 4:00pm, then Wednesday at 5:00pm, etc.) until you are taking it at your normal time. This will ensure you don't lose long-acting coverage and have your sugars go high again. Because you are leaving so suddenly due to your grandmother's illness, I have to send you out against medical advice, but I wish you the best. Please see Dr. Burkett soon to be sure your sugars are ok. Take care, and I am sorry about your grandmother being ill! Pending Studies at Discharge: No Stand-Alone Forms: [facility], Smoking Cessation Medications and DC Order Prescriptions: New metformin 500 mg tablet extended release 24hr 500 mg PO BID Qty: 60 RF: 0 Trulicity 0.75 mg/0.5 mL pen injector 0.75 mg subcut .weekly Qty: 2 RF: 0 insulin aspart U-100 100 unit/mL (3 mL) insulin pen 5 unit subcut TID Qty: 3 RF: 0 Continued (DME) Ketone Urine Test Strip See Rx Instructions .ROUTE .MEDSUPPLY Qty: 50 RF: 2 (DME) OneTouch Verio test strips Strip See Rx Instructions .ROUTE .MEDSUPPLY Qty: 200 RF: 5 (DME) lancets [OneTouch Delica Lancets] 33 gauge misc See Rx Instructions [id number] .MEDSUPPLY Qty: 200 RF: 5 (DME) pen needle, diabetic [BD Ultra-Fine Rasheeda Pen Needle] 32 gauge x 5/32" needle See Rx Instructions [id number] .MEDSUPPLY Qty: 400 RF: 3 multivitamin Tablet 1 tab PO QAM RF: 0 benzonatate 100 mg capsule 100 mg PO TID PRN (Reason: Cough) RF: 0 Changed Lantus Solostar U-100 Insulin 100 unit/mL (3 mL) insulin pen 30 unit subcut HS 90 Days Qty: 15 RF: 3 Discharge Orders: Left Against Medical Advice (Routine); Ordered 05/04/21 Ordered By: Carlos Awad Admission Data Admit Date/Time: 05/03/21 19:58 Attending Provider: Carlos Awad Admit Provider: Sonja Hester Primary Care Provider: Melanie Boss Other Providers: Carlos Awad Coding Level of Care Code D/C DAY MANAGEMENT >30 MINS Diagnoses DKA (diabetic ketoacidosis) E10.10 Diabetes mellitus complication detail: without coma Diabetes mellitus type: type 1 COVID-19 U07.1 Sinus tachycardia R00.0
[2021-05-04] MEDS ORDERED: metFORMIN HCL ER 500 MG TABCR PO SCH (17:00)
[2021-05-04] MEDS ORDERED: INSULIN DRIP STOP ORDER ONE (19:00)
[2021-05-05] MEDS ORDERED: INSULIN ASPART PER UNIT SC SCH
[2021-05-05 07:18] LABS: Estimated Average Glucose 364 mg/dl; Hemoglobin A1C 14.3 % (4.5-5.6)
== END 2021-05-04 15:12 | disposition left against medical advice (07) | DRG 637 ==
LOC: ED 16:45 → EDINP 19:58 → SUATTDRO 19:58 → 2S 05-04 01:01
DX: U07.0 Vaping-related disorder; U07.1 COVID-19; Z83.3 Family history of diabetes mellitus; K21.9 Gastro-esophageal reflux disease without esophagitis; E10.10 Type 1 diabetes mellitus with ketoacidosis without coma; R00.0 Tachycardia, unspecified; F17.290 Nicotine dependence, other tobacco product, uncomplicated

== ENCOUNTER 2023-08-09 16:34 | Inpatient (IN) ==
[2023-08-09 17:52] LABS: Hematocrit (blood only) 41.3 % (37.0-47.0); Hemoglobin 14.2 g/dl (12.0-16.0); Mean Corpuscular Hemoglobin 30.5 pg (25.0-34.0); Mean Corpuscular Hgb Conc 34.4 g/dL (32.0-36.0); Mean Corpuscular Volume 88.8 fL (80.0-100.0); Mean Platelet Volume 11.8 fL (9.4-12.4); Platelet Count 228 K/uL (130-400); RDW Coefficient of Variation 12.8 % (11.5-14.5); RDW Standard Deviation 41.1 fL (36.4-46.3); Red Blood Count 4.65 M/uL (4.20-5.40); White Blood Count 9.57 K/ul (4.8-10.8)
[2023-08-09 18:11] LABS: Alanine Aminotransferase 7 U/L (7-52); Aspartate Aminotransferase 11 U/L (13-39); Est GFR (African American) 143.2 ml/min; Est GFR (Non-African American) 123.6 ml/min
[2023-08-09 18:19] LABS: Creatinine Urine Random 135.2 mg/dl; Protein Creatinine Ratio Urine 0.3 (0-0.2); Total Protein Urine Random 39.6 mg/dl (0-11.9)
[2023-08-09] MEDS ORDERED: LIDOCAINE 1% LOCAL 20 ML VIAL INFIL PRN (19:11)
[2023-08-09] MEDS ORDERED: DEXTROSE 50% 50 ML SYRINGE IV PRN (19:35)
[2023-08-09] MEDS ORDERED: SODIUM CHLORIDE 0.9% 1,000 ML IV PRN (19:35)
[2023-08-09] MEDS: PENICILLIN GK 6 MU in DEXTROSE 5% 250 ML IV STA (20:35)
[2023-08-09] MEDS: LACTATED RINGER'S 1,000 ML IV PRN (20:35)
[2023-08-09] MEDS: ACETAMINOPHEN 325 MG TAB PO PRN (20:58)
[2023-08-09] MEDS: OXYTOCIN 30 UNITS/NSS 30 UNITS/500 ML BAG IV PRN (21:00)
--- NOTE | 2023-08-09 21:11 | History & Physical Report ---
Date of Service August 09, 2023 Assessment & Plan (1) Type 1 diabetes mellitus during : Plan: Melanie is a 28-year-old G2, P1 currently at 37 weeks 1 day gestational presents with mild preeclampsia. 1. Fetus: Category 1 tracing 2. Labor: Will start with cervical ripening Major and oxytocin per regular protocol. Will AROM when appropriate. 3. GBS positive: Penicillin per protocol 4. Mild preeclampsia: Labs within normal limits. Mild range blood pressures at present. Discussed possibility of mag with severe preeclampsia 5. Type 1 diabetes: insulin drip per protocol (2) Obesity affecting , antepartum: (3) Class 3 obesity: (4) Polyhydramnios: (5) Mild preeclampsia: History of Present Illness Primary Care Provider: Светлана Page MD Melanie is a 28-year-old currently at 37 weeks 1 day gestational age presents for evaluation of elevated blood pressures in clinic. Patient was noted to have continued mild range blood pressures on labor and delivery and an elevated protein creatinine ratio of 0.3. Labs are otherwise unremarkable. Based on elevated blood pressures greater than 4 hours with elevated protein creatinine ratio she meets criteria for preeclampsia with out severe features. Discussed diagnosis and recommendation for delivery since she is over 37 weeks. Denying leakage of fluid or vaginal bleeding. Reporting occasional mild contractions. Good movement. Estimated weight at the 52nd percentile on 08/01. Denying preeclampsia symptoms DM Protocol (Type 1 with a h/o DKA in 2019) *Baby ASA daily, start 12-28wks, continue until del *Ophthalmology consult - had 2022 per patient, just prior to , she goes annually. *Dietary consult - willing to see [place] *Qmonthly urine cultures * [id number] - (06/15/23 @ [facility] [place]) *Twice weekly NST's @32 or 34wks *Serial Growth US starting 28wks *Baseline 24hr Urine and Q trimester *EKG (Cardio [id number]) *Deliver by [facility] Hx Preeclampsia Obesity (BMI 40 and higher @ beginning of ) *Growth US @ 32wks *Weekly NSTs @ 34wks *BMI 40 or greater offer detailed/level II anatomy at [facility] *BMI 40 or above offer delivery by ED[facility]. Polyhydramnios *Weekly NSTs if >12 *Weekly AFIs @ Dx *If pocket >16 refer to MFM *Deliver between [id number] GBS Positive in Urine *Treat in Labor Allergies Allergy/AdvReac Type Severity Reaction Status Date / Time nickel Allergy Mild Rash Verified 08/09/23 14:15 fluoxetine AdvReac Intermediate Bad Verified 08/09/23 14:15 thoughts diphenhydramine AdvReac Mild jittery Verified 08/09/23 14:15 [From Unisom (diphenhydramine)] Home Medications Medication Instructions Recorded Confirmed Type blood sugar diagnostic (OneTouch #200 ea 02/26/20 08/09/23 Rx Verio test strips) lancets 33 gauge (OneTouch Delica #200 ea 02/26/20 08/09/23 Rx Lancets) pen needle, diabetic 32 gauge x #400 ea 02/26/20 08/09/23 Rx 32" (BD Ultra-Fine Rasheeda Pen Needle) omega 6-eua-tru-fish oil 1,000 mg 3 cap PO DAILY 09/09/22 08/09/23 History (120 mg-180 mg) capsule (Fish Oil) prenat.vits,julieth,eos-jtla-wwnlb 1 tab PO DAILY 05/14/23 08/09/23 History blood-glucose sensor (Dexcom G7 #3 ea 06/10/23 08/09/23 Rx Sensor device) insulin lispro 100 unit/mL 8 unit (0.08 mL) subcut TID #15 mL 06/10/23 08/09/23 Rx subcutaneous pen (Humalog KwikPen (U-100) Insulin) insulin glargine 100 unit/mL (3 40 unit (0.4 mL) subcut HS #15 mL 06/14/23 08/09/23 Rx mL) subcutaneous pen (Lantus Solostar U-100 Insulin) acetone (urine) test (Ketone Urine #50 ea 07/09/23 08/09/23 Rx Test strips) cholecalciferol (vitamin D3) 125 125 mcg PO DAILY 08/09/23 08/09/23 History mcg (5,000 unit) tablet (Vitamin D3) Patient History Medical History (Updated 08/09/23 @ 21:06 by Gordon Booth MD) History of seizures As a child Restless leg syndrome Gastroesophageal reflux disease Surgical History History of tonsillectomy and adenoidectomy [place] teeth extracted Family History (Updated 05/14/23 @ 14:34 by Roxanna May) Grandmother (Maternal) Family history of diabetes mellitus Aunt Family history of diabetes mellitus Grandfather Lung cancer Other Diabetes Endometriosis Gestational diabetes Hypertension Kidney disease Kidney stones No family history of adverse response to anesthesia Thyroid disease Denies family history of Ovarian cancer Breast cancer Colorectal cancer Social History (Updated 05/14/23 @ 14:22 by Roxanna May) Smoking Status: Never smoker Tobacco Type: E-cigarettes / Vaping Second Hand Exposure: No; Do You Dip or Chew Tobacco: No; Hx Alcohol Use: No Hx Substance Use: No Preferred Language: [place]i Communication Ability: Effective Visual Impairment: No Limitations Electromedical Equipment 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 Required: No Beliefs That Will Affect Care: None marital status: marital status details: Felix (30) [phone] Current Living Situation: Spouse Current Living Situation Comment: Apartment with and child current occupational status: employed and student 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 Other Information That Helps Us Care for You: No Feels Safe at Home: Yes Safety Concerns: Feels Safe At This Time Assistive Devices: None Physical Exam Genitourinary: normal external appearance OB Exam Abdomen: + vertex Manual OB Exam: + cervical dilation 1 cm, + cervical effacement 50% and + station high OB Exam Monitor Tracing: + external FHT monitor used, + external uterine monitor used, + category I and + normal FHT variability; no early decelerations present, no late decelerations present and no variable decelerations Results & Data Vital Signs (Past 12 Hours) Vital Signs Temp Pulse Resp BP 08/09/23 20:48 99 H 08/09/23 20:48 145/87 H 08/09/23 19:50 18 08/09/23 19:50 36.6 C 18 08/09/23 19:44 93 H 08/09/23 19:44 164/94 H 08/09/23 19:43 36.6 C 18 08/09/23 19:14 93 H 138/84 08/09/23 18:59 95 H 142/90 H 08/09/23 18:44 93 H 141/81 H 08/09/23 18:30 91 H 128/76 08/09/23 18:14 90 121/72 08/09/23 17:59 96 H 132/76 08/09/23 17:44 103 H 128/76 08/09/23 17:35 36.9 C 98 H 20 139/77 08/09/23 17:31 98 H 139/77 08/09/23 17:16 100 H 143/84 H 08/09/23 16:57 109 H 134/95 Coding Level of Care Code None Diagnoses Type 1 diabetes mellitus during in third trimester O24.013 Trimester: third trimester Obesity affecting , antepartum, unspecified obesity type O99.210 Obesity type affecting : unspecified obesity Class 3 obesity E66.01 Polyhydramnios in third trimester complication, single or unspecified fetus O40.3XX0 Fetus number: single or unspecified fetus Trimester: third trimester Mild pre-eclampsia in third trimester O14.03 Trimester: third trimester (1) Type 1 diabetes mellitus during Trimester: third trimester Qualified Code(s): O24.013 - Pre-existing type 1 diabetes mellitus, in , third trimester (2) Obesity affecting , antepartum Obesity type affecting : unspecified obesity Qualified Code(s): O99.210 - Obesity complicating , unspecified trimester (4) Polyhydramnios Fetus number: single or unspecified fetus Trimester: third trimester Qualified Code(s): O40.3XX0 - Polyhydramnios, third trimester, not applicable or unspecified (5) Mild preeclampsia Trimester: third trimester Qualified Code(s): O14.03 - Mild to moderate pre- eclampsia, third trimester
[2023-08-09] MEDS: DEXTROSE 5% 1,000 ML IV PRN (21:32)
[2023-08-09] MEDS: INSULIN REGULAR 250 UNITS in SODIUM CHLORIDE 0.9% 247.5 ML IV PRN (21:33)
[2023-08-10] MEDS ORDERED: NALOXONE HCL 0.4 MG/1 ML VIAL/CARP IV PRN (00:40)
[2023-08-10] MEDS ORDERED: NALBUPHINE HCL 5 MG in SYRINGE 0 ML IV PRN (00:40)
[2023-08-10] MEDS ORDERED: NALOXONE HCL 1 MG in SODIUM CHLORIDE 0.9% 1,000 ML IV PRN (00:40)
[2023-08-10] MEDS ORDERED: fentaNYL citrate PF 100 MCG/2 ML VIAL EPI PRN (00:40)
[2023-08-10] MEDS ORDERED: LIDOCAINE 2% MPF LOCAL 5 ML VIAL EPI PRN (00:40)
[2023-08-10] MEDS ORDERED: ePHEDrine sulfate 50 MG/ML AMP IV PRN (00:40)
[2023-08-10] MEDS ORDERED: ROPIVACAINE 0.5% PF 5 MG/ML 20 ML VIAL EPI PRN (00:40)
[2023-08-10] MEDS ORDERED: diphenhydrAMINE 50 MG/ML VIAL IV PRN (00:40)
[2023-08-10] MEDS ORDERED: BUPIVACAINE 0.25% PF 30 ML VIAL EPI PRN (00:40)
[2023-08-10] MEDS ORDERED: SODIUM CHLORIDE 0.9% PF INJ 10 ML VIAL EPI PRN (00:40)
--- NOTE | 2023-08-10 00:42 | Anesthesiology Consultation ---
Date of Service August 10, 2023 Assessment & Plan ASA ASA3 Proposed Anesthesia Anesthesia Type: Labor Epidural Risk / Benefits Reviewed With: PT / POA / Parent / Guardian, Accepts Plan and Informed Consent Obtained History Height/Weight Height: 5 ft 2 in Weight: 117.934 kg Allergies Allergy/AdvReac Type Severity Reaction Status Date / Time nickel Allergy Mild Rash Verified 08/09/23 14:15 fluoxetine AdvReac Intermediate Bad Verified 08/09/23 14:15 thoughts diphenhydramine AdvReac Mild jittery Verified 08/09/23 14:15 [From Unisom (diphenhydramine)] Medications Home Medications Medication Instructions Recorded Confirmed Last Taken blood sugar diagnostic (OneTouch #200 ea 02/26/20 08/09/23 Unknown Verio test strips) lancets 33 gauge (OneTouch Delica #200 ea 02/26/20 08/09/23 Unknown Lancets) pen needle, diabetic 32 gauge x #400 ea 02/26/20 08/09/23 Unknown 5/32" (BD Ultra-Fine Rasheeda Pen Needle) omega 7-ars-sia-fish oil 1,000 mg 3 cap PO DAILY 09/09/22 08/09/23 08/08/23 (120 mg-180 mg) capsule (Fish Oil) prenat.vits,julieth,tme-kojm-glwhe 1 tab PO DAILY 05/14/23 08/09/23 08/08/23 blood-glucose sensor (Dexcom G7 #3 ea 06/10/23 08/09/23 Unknown Sensor device) insulin lispro 100 unit/mL 8 unit (0.08 mL) subcut TID #15 mL 06/10/23 08/09/23 Unknown subcutaneous pen (Humalog KwikPen (U-100) Insulin) insulin glargine 100 unit/mL (3 40 unit (0.4 mL) subcut HS #15 mL 06/14/23 08/09/23 Unknown mL) subcutaneous pen (Lantus Solostar U-100 Insulin) acetone (urine) test (Ketone Urine #50 ea 07/09/23 08/09/23 Unknown Test strips) cholecalciferol (vitamin D3) 125 125 mcg PO DAILY 08/09/23 08/09/23 08/08/23 mcg (5,000 unit) tablet (Vitamin D3) Active Medications Generic Name Dose Route Start Last Admin Trade Name Freq PRN Reason Stop Dose Admin Acetaminophen 650 mg 08/09/23 16:53 08/09/23 20:58 Acetaminophen 325 Mg Tab PO 09/08/23 16:52 650 mg Q4H PRN Administration Headache Lactated Ringer's 1,000 mls @ 125 mls/hr 08/09/23 19:11 08/10/23 00:44 Lr IV 08/11/23 19:10 0 mls/hr .Q8H PRN Infusion L&D Protocol Protocol Penicillin G Potassium 3 mu/ 106 mls @ 100 mls/hr 08/09/23 22:11 08/10/23 00:43 Dextrose IV 08/19/23 22:10 100 mls/hr Q4H PRN Administration GBS(+) Until Delivery Oxytocin 30 units in 500 mls @ 6 mls/hr 08/09/23 19:29 08/09/23 23:30 Pitocin 30 Units/Nss IV 08/11/23 19:28 0.36 units/hr .Q24H PRN 6 mls/hr Labor Induction/Augmentation Titration Protocol 0.36 UNITS/HR Dextrose 1,000 mls @ 100 mls/hr 08/09/23 19:35 08/10/23 00:30 D5w IV 09/08/23 19:34 100 mls/hr .Q10H PRN Infusion BSG 180 or below Protocol Insulin Human Regular 250 250 mls @ 0.5 mls/hr 08/09/23 19:35 08/10/23 00:30 units/ Sodium Chloride IV 09/08/23 19:34 0.5 units/hr .Q24H PRN 0.5 mls/hr BSG 80mg/dL or ABOVE Titration Protocol 0.5 UNITS/HR Past Medical History Medical History History of seizures As a child Restless leg syndrome Gastroesophageal reflux disease Exercise / Class Metabolic Activity II 4-5 Yardwork/Stairs/Walk up hill Past Family History Family History Grandmother (Maternal) Family history of diabetes mellitus Aunt Family history of diabetes mellitus Grandfather Lung cancer Other Diabetes Endometriosis Gestational diabetes Hypertension Kidney disease Kidney stones No family history of adverse response to anesthesia Thyroid disease Denies family history of Ovarian cancer Breast cancer Colorectal cancer Past Surgical History Surgical History History of tonsillectomy and adenoidectomy [place] teeth extracted Past Anesthesia History No Hx of Anesthesia Complications and No Family Hx of Anesthesia Complications History of PONV No Hx of PONV and No Hx of Motion Sickness Social History Smoking Status: Never smoker tobacco type: e-cigarettes Do You Dip or Chew Tobacco: No Hx Alcohol Use: No Alcohol type: beer, wine and hard liquor alcohol intake frequency: holidays/special occasions only Hx Substance Use: No substance use type: does not use Review of Systems denies fever/cough/ colds/ chest pain/ SOB/ GUNNAR denies GUNNAR Physical Exam Vital Signs Last Vital Signs Temp 36.8 C 08/10/23 00:30 Pulse 83 08/10/23 01:18 Resp 18 08/10/23 00:30 BP 105/54 L 08/10/23 01:18 Pulse Ox 98 08/10/23 01:17 ENMT Mouth: no TMJ abnormality and no dentition abnormality Thyromental Distance: > or= 3.5 Finger Breadths Mallampati Class: II Neck neck extension not limited Respiratory normal respiratory effort; no respiratory distress Auscultation: lungs clear to auscultation bilaterally Cardiovascular Rate/Rhythm: regular rate and regular rhythm Neurologic moves all extremities Psychiatric Orientation: alert and oriented x 3 Testing Laboratory Results 08/09/23 17:27 08/09/23 17:27 Blood Type A Positive 08/09/23 17:28 Antibody Screen NEGATIVE 08/09/23 17:28 08/10/23 08/09/23 08/09/23 00:28 23:28 22:27 POC Glucose 87 86 102 H 08/09/23 08/09/23 21:31 20:37 POC Glucose 127 H 88
[2023-08-10] MEDS: PENICILLIN GK 3 MU in DEXTROSE 5% 100 ML IV PRN (00:43)
[2023-08-10] MEDS: LIDOCAINE 2%/EPINEPHRINE 1:200,000 20 ML PF ONE (01:08)
[2023-08-10] MEDS: fentaNYL citrate PF 100 MCG/2 ML VIAL ONE (01:08)
[2023-08-10] MEDS: BUPIVACAINE 0.25% PF 30 ML VIAL ONE (01:08)
[2023-08-10] MEDS: fentANYL 2 MCG/ML BUPIVacaine 0.125%-NSS 100ML BAG ONE (01:19)
[2023-08-10] MEDS: ePHEDrine sulfate 50 MG/ML AMP ONE (01:38)
[2023-08-10] MEDS: fentaNYL citrate PF 100 MCG/2 ML VIAL EPI STA (01:38)
[2023-08-10] MEDS: SODIUM CHLORIDE 0.9% PF INJ 10 ML VIAL ONE (01:38)
[2023-08-10] MEDS: BUPIVACAINE 0.25% PF 30 ML VIAL EPI STA (01:38)
[2023-08-10] MEDS: SODIUM CHLORIDE 0.9% PF INJ 10 ML VIAL EPI STA (01:39)
[2023-08-10] MEDS: LIDOCAINE 2%/EPINEPHRINE 1:200,000 20 ML PF EPI STA (01:39)
[2023-08-10] MEDS: ONDANSETRON INJ 2 MG/ML 2 ML VIAL IV PRN (03:22)
--- NOTE | 2023-08-10 08:09 | Labor Progress Brief Note ---
Date of Service August 10, 2023 Subjective Reason For Note: Routine Evaluation Denying preeclampsia symptoms Assessment & Plan (1) Type 1 diabetes mellitus during : Plan: Melanie is a 28-year-old G2, P1 currently at 37 weeks 1 day gestational presents with mild preeclampsia. 1. Fetus: Category 1 tracing 2. Labor: s/p cervical ripening Major. Continue oxytocin per regular protocol. AROM clr 4. Mild preeclampsia: Labs within normal limits. Intermittent Mild range blood pressures. Discussed possibility of mag with severe preeclampsia 5. Type 1 diabetes: insulin drip per protocol. Stable Trimester: third trimester Qualified Code(s): O24.013 - Pre- existing type 1 diabetes mellitus, in , third trimester (2) Obesity affecting , antepartum: Obesity type affecting : unspecified obesity Qualified Code(s): O99.210 - Obesity complicating , unspecified trimester (3) Class 3 obesity: (4) Polyhydramnios: Fetus number: single or unspecified fetus Trimester: third trimester Qualified Code(s): O40.3XX0 - Polyhydramnios, third trimester, not applicable or unspecified (5) Mild preeclampsia: Trimester: third trimester Qualified Code(s): O14.03 - Mild to moderate pre-eclampsia, third trimester Admission and Anticipated Discharge Date Admission Date: August 09, 2023 Physical Exam Genitourinary: Manual OB Exam: + cervical dilation 4 cm, + cervical effacement 70%, + station -2 and + amniotic fluid (AROM) clear OB Exam Monitor Tracing: + external FHT monitor used, + external uterine monitor used and + category I Results & Data Vital Signs (Past 12 Hours) Vital Signs Temp Pulse Resp BP Pulse Ox O2 Del Method 08/10/23 08:05 100 H 118/78 08/10/23 08:02 96 H 96 08/10/23 07:57 113 H 96 08/10/23 07:52 105 H 97 08/10/23 07:51 109 H 130/80 08/10/23 07:47 96 H 94 08/10/23 07:42 94 H 95 08/10/23 07:37 94 H 96 08/10/23 07:35 95 H 117/74 08/10/23 07:32 92 H 95 08/10/23 07:27 93 H 95 08/10/23 07:24 Room Air 08/10/23 07:22 93 H 97 08/10/23 07:21 108 H 110/77 08/10/23 07:17 95 H 95 08/10/23 07:12 94 H 95 08/10/23 07:08 16 08/10/23 07:08 37.1 C 16 08/10/23 07:07 98 H 93 08/10/23 07:05 98 H 100/56 L 08/10/23 07:02 92 H 94 08/10/23 06:57 91 H 94 08/10/23 06:52 89 94 08/10/23 06:50 100 H 104/57 L 08/10/23 06:47 92 H 95 08/10/23 06:42 91 H 94 08/10/23 06:37 90 93 08/10/23 06:36 92 H 108/62 08/10/23 06:32 96 H 94 08/10/23 06:30 18 08/10/23 06:30 18 08/10/23 06:27 97 H 93 08/10/23 06:22 100 H 93 08/10/23 06:21 94 H 111/65 08/10/23 06:17 92 H 93 08/10/23 06:12 99 H 94 08/10/23 06:07 103 H 94 08/10/23 06:05 95 H 109/61 08/10/23 06:02 84 94 08/10/23 06:00 18 08/10/23 06:00 18 08/10/23 05:57 89 94 08/10/23 05:52 86 93 08/10/23 05:50 88 109/59 L 08/10/23 05:47 97 H 94 08/10/23 05:42 85 94 08/10/23 05:37 92 H 95 08/10/23 05:36 85 111/60 08/10/23 05:32 84 94 08/10/23 05:30 18 08/10/23 05:30 18 08/10/23 05:27 88 94 08/10/23 05:22 81 93 08/10/23 05:20 81 101/56 L 08/10/23 05:17 80 92 08/10/23 05:12 82 92 08/10/23 05:07 93 08/10/23 05:07 83 08/10/23 05:07 84 102/57 L 08/10/23 05:02 80 92 08/10/23 04:57 81 92 08/10/23 04:52 83 92 08/10/23 04:50 92 H 91/55 L 08/10/23 04:47 86 92 08/10/23 04:42 87 91 08/10/23 04:37 86 93 08/10/23 04:36 82 98/58 L 08/10/23 04:35 18 08/10/23 04:35 36.9 C 18 08/10/23 04:32 90 93 08/10/23 04:27 86 93 08/10/23 04:22 82 93 08/10/23 04:20 85 102/60 08/10/23 04:17 94 H 94 08/10/23 04:12 84 94 08/10/23 04:07 90 93 08/10/23 04:05 85 95/54 L 08/10/23 04:02 81 93 08/10/23 04:00 18 08/10/23 04:00 18 08/10/23 03:57 82 93 08/10/23 03:52 85 95 08/10/23 03:50 88 98/53 L 08/10/23 03:47 90 96 08/10/23 03:42 101 H 93 08/10/23 03:37 92 H 95 08/10/23 03:35 95 H 116/72 08/10/23 03:32 85 94 08/10/23 03:30 18 08/10/23 03:30 18 08/10/23 03:27 96 H 94 08/10/23 03:22 98 H 95 08/10/23 03:20 94 H 117/76 08/10/23 03:17 92 H 95 08/10/23 03:12 92 H 93 08/10/23 03:07 87 95 08/10/23 03:06 92 H 106/68 08/10/23 03:02 86 95 08/10/23 03:00 18 08/10/23 03:00 18 08/10/23 02:57 92 H 94 08/10/23 02:52 89 95 08/10/23 02:50 93 H 102/63 08/10/23 02:47 87 92 08/10/23 02:42 100 H 95 08/10/23 02:37 86 95 08/10/23 02:35 93 H 103/67 08/10/23 02:32 89 94 08/10/23 02:30 18 08/10/23 02:30 18 08/10/23 02:27 93 H 95 08/10/23 02:22 103 H 94 08/10/23 02:20 99 H 107/71 08/10/23 02:17 106 H 96 08/10/23 02:12 95 H 95 08/10/23 02:07 95 H 97 08/10/23 02:05 93 H 105/67 08/10/23 02:02 94 H 97 08/10/23 02:00 18 08/10/23 02:00 18 08/10/23 01:57 84 95 08/10/23 01:52 88 97 08/10/23 01:50 85 104/64 08/10/23 01:47 84 95 08/10/23 01:42 91 H 96 08/10/23 01:37 74 97 08/10/23 01:35 81 103/59 L 08/10/23 01:33 90 102/61 08/10/23 01:32 81 97 08/10/23 01:31 84 103/61 08/10/23 01:30 18 08/10/23 01:30 18 08/10/23 01:29 85 103/60 08/10/23 01:27 96 H 108/65 97 08/10/23 01:25 90 106/61 08/10/23 01:23 105 H 100/57 L 08/10/23 01:22 95 H 98 08/10/23 01:21 96 H 110/62 08/10/23 01:18 83 105/54 L 08/10/23 01:17 84 98 08/10/23 01:12 88 97 08/10/23 01:11 81 75/40 L 08/10/23 01:10 77 99/48 L 08/10/23 01:07 94 H 97 08/10/23 01:04 90 128/72 08/10/23 01:02 85 96 08/10/23 01:01 93 H 114/70 08/10/23 00:57 76 94 08/10/23 00:53 100 H 88 L 08/10/23 00:52 98 H 97 08/10/23 00:49 86 132/81 08/10/23 00:47 107 H 99 08/10/23 00:42 86 97 08/10/23 00:38 84 93 08/10/23 00:37 91 H 96 08/10/23 00:32 89 97 08/10/23 00:31 91 H 137/85 08/10/23 00:30 18 08/10/23 00:30 36.8 C 18 08/10/23 00:27 88 97 08/10/23 00:22 88 97 08/10/23 00:17 86 97 08/10/23 00:12 95 H 97 08/09/23 23:36 93 H 08/09/23 23:36 143/89 H 08/09/23 23:31 89 08/09/23 23:31 135/84 08/09/23 23:30 18 08/09/23 23:30 36.4 C L 18 08/09/23 22:31 93 H 08/09/23 22:31 132/82 08/09/23 22:00 18 08/09/23 22:00 18 08/09/23 21:30 95 H 08/09/23 21:30 138/81 08/09/23 20:48 99 H 08/09/23 20:48 145/87 H Coding Level of Care Code None Diagnoses Type 1 diabetes mellitus during in third trimester O24.013 Trimester: third trimester Obesity affecting , antepartum, unspecified obesity type O99.210 Obesity type affecting : unspecified obesity Class 3 obesity E66.01 Polyhydramnios in third trimester complication, single or unspecified fetus O40.3XX0 Fetus number: single or unspecified fetus Trimester: third trimester Mild pre-eclampsia in third trimester O14.03 Trimester: third trimester
[2023-08-10] MEDS: fentANYL 2 MCG/ML BUPIVacaine 0.125%-NSS 100ML BAG EPI PRN (09:12)
--- NOTE | 2023-08-10 14:44 | Anesthesia Procedure Note ---
Date of Service August 10, 2023 Anesthesia Post Epidural Note Vital Signs Vital Signs: Temp Pulse Resp BP Pulse Ox O2 Del Method 98.4 F 106 H 18 136/108 H 94 Room Air 08/10/23 13:20 08/10/23 14:42 08/10/23 13:20 08/10/23 14:35 08/10/23 14:42 08/10/23 07:24 Pain Intensity Head: Pain Intensity: 6 Notes Mental Status: alert / awake / arousable and participated in evaluation Nausea / Vomiting: adequately controlled Pain: adequately controlled Airway Patency, RR, SpO2: stable & adequate BP & HR: stable & adequate Hydration State: stable & adequate Neuraxial Anesthesia: was administered and sensory block is resolving Anesthetic Complications: no major complications apparent and Pt Satisfied with anesthetic care Epidural: Removed without complications and With tip intact
[2023-08-10] MEDS: OXYTOCIN 30 UNITS/NSS 30 UNITS/500 ML BAG IV PRN (14:45)
--- NOTE | 2023-08-10 14:51 | Delivery Summary ---
Vaginal Delivery Summary Date of Service August 10, 2023 Vaginal Delivery Summary and 1st Degree LAC (superficial labia abrasion not repaired) Patient is a 28-year-old 2 para 1-0-0-1 female EDC of 08/29/2023 who presents at 37-2/7 weeks following elevated blood pressures at her routine OB visit on 08/09/2023. She met the criteria for mild preeclampsia and Pitocin induction protocol was begun. She received effective epidural analgesia, and her water was broke for copious amount of clear fluid. She progressed to full dilation and pushed effectively over intact perineum for delivery of a viable male infant. A loose nuchal cord was reduced after delivery of the head. Rest the delivered without difficulty and was placed on the mother's abdomen for further attention and drying. He was spontaneously crying but had poor tone and color and therefore was taken to the baby bed for further stimulation and evaluation. Apgars were 7 and 9. The cord had been clamped and cut after approximately 1 minute. After cord blood was obtained, the placenta was expressed intact with a three-vessel cord. bleeding was controlled with dilute Pitocin and fundal massage. Perineum was intact except for a superficial abrasion at the apex of the labia minora. Was not bleeding and therefore not repaired. QBL was 175 mL. Mother and were doing well after delivery. [facility] [place]ag[place] Delivery Charge Delivery Type Details: and 1st Degree LAC (superficial labia abrasion not repaired)
[2023-08-10] MEDS ORDERED: OXYTOCIN 30 UNITS/NSS 30 UNITS/500 ML BAG IV PRN (14:55)
[2023-08-10] MEDS ORDERED: bisacodyL 10 MG SUPP PR PRN (14:55)
[2023-08-10] MEDS ORDERED: BENZOCAINE 20% SPRY 85 APPLN/85 GM CAN EXT PRN (14:55)
[2023-08-10] MEDS ORDERED: oxyCODONE/ACETAMINOPHEN 5mg/325mg TAB PO PRN (14:55)
[2023-08-10] MEDS ORDERED: HYDROCORTISONE ACETATE 25 MG SUPP PR PRN (14:55)
[2023-08-10] MEDS ORDERED: DEXTROSE 50% 50 ML SYRINGE IV PRN (15:06)
[2023-08-10] MEDS ORDERED: GLUCAGON FOR INJ 1 MG VIAL SQ PRN (15:06)
[2023-08-10] MEDS ORDERED: GLUCOSE 40% GEL 15 GM TUBE PO PRN (15:06)
[2023-08-10] MEDS ORDERED: GLUCOSE 10 TAB/TUBE PO PRN (15:06)
[2023-08-10] MEDS: INSULIN ASPART PER UNIT CHARGE SC SCH ×2 (16:29→17:19)
[2023-08-10] MEDS ORDERED: INSULIN ASPART PER UNIT CHARGE SC SCH (16:30)
[2023-08-10] MEDS: IBUPROFEN 600 MG TAB PO PRN (17:58)
[2023-08-10] MEDS: LANTUS PER UNIT CHARGE SQ SCH (21:48)
[2023-08-10] MEDS: DOCUSATE SODIUM 100 MG CAP PO SCH (21:49)
[2023-08-10] MEDS: ACETAMINOPHEN 325 MG TAB PO PRN (21:49)
[2023-08-11 06:46] LABS: Hematocrit (blood only) 36.9 % (37.0-47.0); Hemoglobin 12.5 g/dl (12.0-16.0); Mean Corpuscular Hemoglobin 30.7 pg (25.0-34.0); Mean Corpuscular Hgb Conc 33.9 g/dL (32.0-36.0); Mean Corpuscular Volume 90.7 fL (80.0-100.0); Mean Platelet Volume 11.8 fL (9.4-12.4); Platelet Count 184 K/uL (130-400); RDW Coefficient of Variation 12.8 % (11.5-14.5); RDW Standard Deviation 42.1 fL (36.4-46.3); Red Blood Count 4.07 M/uL (4.20-5.40); White Blood Count 8.17 K/ul (4.8-10.8)
[2023-08-11] MEDS ORDERED: INSULIN ASPART PER UNIT CHARGE SC SCH (07:30)
[2023-08-11] MEDS: INSULIN ASPART PER UNIT CHARGE SC SCH ×2 (07:30→13:25)
--- NOTE | 2023-08-11 07:40 | Obstetrical Progress Note ---
Date of Service August 11, 2023 Assessment & Plan (1) Encounter for care and examination after delivery: satisfactory course BP's have been trending up since delivery but not high enough to treat she did not require anti-hypertensives after her last baby will continue to monitor BP's today Subjective Ambulation: ambulating normally Voiding: no voiding problems Passing Gas:: Yes Diet Tolerance:: regular diet Lochia:: Small Feeding Type:: breast feeding headache has resolved. having some cramping no pre-eclampsia symptoms Physical Exam Constitutional WD/WN, vitals as above Psychiatric A+Ox3, euthymic affect Genitourinary OB Exam Abdomen: + fundal height Fundus: + firm and + relation to umbilicus (at U) Results & Data Vital Signs (Past 12 Hours) Vital Signs Temp Pulse Resp BP Pulse Ox O2 Del Method 08/11/23 04:50 98.1 F 82 16 127/84 96 Room Air 08/11/23 00:25 98.6 F 86 18 134/94 96 Room Air 08/10/23 20:35 97.9 F 84 18 123/84 96 Room Air
[2023-08-11] MEDS: DIPHTHER/TETAN/PERTUS Vaccine (Tdap, Adol/Adult) 0.5mL IM ONE (08:12)
[2023-08-11] MEDS: PRENATAL VITAMIN 1 TAB PO SCH (08:41)
[2023-08-11] MEDS: bisacodyL 5 MG TABEC PO SCH (21:17)
--- NOTE | 2023-08-12 03:47 | Ultrasound Report ---
Exam(s): US VENOUS LEFT LOWER EXTREMITY EXAM: US Duplex Left Lower Extremity Veins CLINICAL HISTORY: left leg swelling. TECHNIQUE: Real-time duplex ultrasound scan of the left lower extremity veins integrating B-mode two-dimensional vascular structure, Doppler spectral analysis, color flow Doppler imaging and compression. COMPARISON: No relevant prior studies available. FINDINGS: Deep veins: Unremarkable. No DVT in the visualized common femoral, femoral, proximal deep femoral or popliteal veins. The veins demonstrate normal color flow, are normally compressible, with normal phasic flow and/or augmentation response. The interrogated calf veins are patent. Superficial veins: Unremarkable. No thrombus in the saphenofemoral junction. Soft tissues: No acute findings. No popliteal cyst. IMPRESSION: No evidence for deep vein thrombosis involving the left lower extremity. Electronically signed by: Kenneth Orellana MD 08/12/23 03:46 AM
[2023-08-12 06:08] LABS: Hematocrit (blood only) 34.9 % (37.0-47.0); Hemoglobin 11.7 g/dl (12.0-16.0)
--- NOTE | 2023-08-12 06:14 | Obstetrical Progress Note ---
Date of Service August 12, 2023 Assessment & Plan (1) Encounter for care and examination after delivery: Plan Doing well Dc today Routine post care Admission and Anticipated Discharge Date Admission Date: August 09, 2023 Supervising Physician Co-Signing Physician Notes Resident Physician Supervision Note: I interviewed and examined the patient. Discussed with Dr. Daigle and agree with findings and plan as documented in the note. Any exceptions or clarifications are listed here: [None] Documented By: Joanne De MD, FACOG Subjective 28 yo post day 2 s/p Ambulation: ambulating normally Voiding: no voiding problems Passing Gas:: Yes Diet Tolerance:: regular diet Lochia:: Small Feeding Type:: breast feeding Current Pain Level: minimal Resting comfortably this AM in NAD. Denies COYLE, CP, SOB, N/V/D, LE pain/swelling. Review of Systems Review of Systems: reviewed, per HPI Physical Exam Physical Exam: General: patient resting comfortably, NAD, non-toxic in appearance Skin: warm, dry, intact HEENT: NC/AT, anicteric sclera, conjunctiva without injection, moist mucus membranes. Heart: +S1/S2, regular, no m/r/g Lungs: equal air entry bilaterally, no rales/rhonchi/wheezes Abd: +BS, soft, NT/ND, uterine fundus firm at umbilicus Ext: warm, no clubbing/cyanosis or edema, Prakash's neg. Neuro: nonfocal, no facial droop, moving all extremities on command. Results & Data Vital Signs (Past 12 Hours) Vital Signs Temp Pulse Resp BP Pulse Ox O2 Del Method 08/11/23 23:30 37.0 C 84 18 126/86 98 Room Air 08/11/23 20:15 36.6 C 82 18 122/86 97 Room Air Resident Activity Tracking Resident Involvement: Resident Care Provided Care Provided: Adult Hospital Medicine
[2023-08-12] MEDS: CARBOHYDRATES FOR HYPOGLYCEMIA PO PRN (06:23)
== END 2023-08-12 10:25 | disposition home or self-care (01) | DRG 805 ==
LOC: OPB 16:34 → 4S1 16:35 → 4E2 08-10 18:08